=== PATIENT | female | born 1970 | race Caucasian/White ===

== ENCOUNTER 2022-12-03 09:26 | Outpatient (RCR) | payer BC, SELFPAY | END 2023-01-01 11:06 | disposition home or self-care (01) | LOC: PT 09:26 | PROVIDERS: PCP Internal Medicine; Visit Provider Anesthesiology Pain Medicine | DX: G57.82 Other specified mononeuropathies of left lower limb (principal) | CPT/HCPCS: 20561; 97110 ==

== ENCOUNTER 2023-04-14 07:35 | Outpatient (OUT) | payer BC, SELFPAY ==
--- NOTE | 2023-04-14 07:58 | P.CN_ITS ---
Consult Note: HPI Data of Consult Patient: known to practice within the last 3 years Requesting Physician: Nancy Miller NP Primary Care Provider: Ryan Jin DO Consult Narrative Reason for consult: f/u Narrative: Abad Thornton a pleasant 52 year old female presents for evaluation of chronic low back pain and sacroiliac joint pain. Patient today rating pain 2/10 in low back radiating down her right buttock and thigh. Intermittently has numbness/tingling to right foot. Patient recently completed PT with benefit, notices after completing PT her SIJ pain is greatly improved but she continues to have low back back and intermittent radiculopathy. Patient has been taking nabumetone 500mg QD and Tramadol 50mg QD PRN with benefit without side effects. Notices extreme drowsiness with 10mg PRN Baclofen. Patient would like to discuss additional options today. cc:: CC: Nancy Miller NP Review of Systems ROS Status of ROS 10 or more systems reviewed and unremarkable except as noted in history and below Musculoskeletal Reports: back pain Exam Constitutional Documenting provider has reviewed patient's vital signs: yes Common normals: no apparent distress, oriented x3, healthy appearing, alert and well nourished General appearance: cooperative HENMT Common normals: normocephalic, hearing grossly normal bilaterally and moist oral mucous membranes Head and scalp: normocephalic Eye Common normals: PERRL Pupil: PERRL Neck & C-Spine Common normals: full ROM General: normal visual inspection Chest Common normals: inspection of chest normal Respiratory Common normals: normal respiratory effort, no retractions and no use of accessory muscles Back & Pelvis Common normals: straight leg raise negative bilaterally Lumbar spine/lower back: pain with ROM and straight leg raise negative bilaterally Sacroiliac joints: SI joints normal Other: positive facet loading R>L tenderness over L3-4 L4-5 L5-S1 Extremity Common normals: normal to inspection and full ROM Neuro Common normals: oriented x3, CN's II-XII intact bilaterally, moves all extremities, no focal motor deficits, no sensory deficits noted, deep tendon reflexes 2+ bilaterally and gait normal Sensorium/orientation: alert Motor exam: strength 5/5 throughout and no movement abnormalities noted Psych Common normals: mental status grossly normal, thought process normal, cooperative, affect normal, speech normal and activity/motor behavior normal Speech: normal speech Thought process: normal thought process Results Additional Findings Additional findings: I have checked an OARRS report on this patient today and there are no aberrancies noted in the prescribing history.?? A drug screen was completed and reviewed within the last year, and if there has not been a drug screen completed we ordered one today to monitor higher risk, state monitored pain medication use. As part of providing excellent, safe, comprehensive care, the following was completed at our patient's visit: 1. A medication reconciliation and review to ensure accurate knowledge of cu rrent/active medications, including asking our patients to inform us about any [id number] medications or herbal remedies/nutritional supplements/alternative remedies. 2. A review to specifically ensure our patients have had annual screening for: elevated body mass index (BMI), tobacco use, screening for depression, and screening for unhealthy alcohol use. When screening is concerning, patients are provided with education and the specific recommendation to discuss the concerning health issue and treatment options with their primary care provider. TIFFANIE 22% with mild pain, extra pain with lifting heavy weights, pain prevents her from sitting more than 1 hour, pain with standing, because of pain she has less than 6 hours of sleep, travel causes additional pain Assessment and Plan Assessment and Plan (1) Bilateral sacroiliitis: Assessment and Plan: resolved since completion of PT (2) Lumbar spondylosis: Assessment and Plan: predominately axial low back pain worse on right side (3) Lumbar radiculopathy: Assessment and Plan: intermittent down right leg and foot (4) Muscle spasm: (5) Chronic prescription opiate use: Plan stop baclofen start tizanidine 4mg 1-2tabs PRN BID muscle spasms continue tramadol 50mg QD PRN, tolerating well without side effect, refilled today continue nabumetone 500mg QD Lumbosacral xray with flexion extension ordered, last imaging on lumbar spine 2018 continue HEP f/u 1 month to review imaging and discuss injection therapy if needed
== END 2023-04-14 07:36 | disposition home or self-care (01) ==
LOC: PM 07:41
PROVIDERS: PCP Internal Medicine; Visit Provider Nurse Practitioner
DX: M47.26 Other spondylosis with radiculopathy, lumbar region (principal); M62.838 Other muscle spasm; M46.1 Sacroiliitis, not elsewhere classified; Z79.899 Other long term (current) drug therapy
CPT/HCPCS: G0463

== ENCOUNTER 2023-04-25 21:24 | Emergency (ER) | payer BC, SELFPAY ==
[2023-04-25 21:30] VITALS: BP 172/67; PULSE 88; RESP 16; TEMP 36.6; O2SAT 100; BMI 30.2
--- NOTE | 2023-04-25 21:41 | XR_ITS ---
The [address] [address] Patient Name: CECILIO ANNA MRN: [id number] date: 1970 Sex: F Assigned Patient Location: ER Current Patient Location: ED.MAIN Accession/Order Number: [id number] Exam Date: 04/25/2023 21:50 Report Date: 04/25/2023 22:03 At the request of: PONCE CHAUDHRY Procedure: XR foot RT min 3V EXAM: XR foot RT min 3V HISTORY: Branch fell on patient's foot COMPARISON: None. TECHNIQUE: 3 views FINDINGS: Mild soft tissue edema of the dorsal aspect of the forefoot. No osseous lesion, fracture, dislocation or subluxation. Joint spaces are normal. No visualized effusion. XR/XR foot RT min 3V IMPRESSION: Soft tissue edema with no visualized acute osseous abnormality Electronically authenticated by: MARIBEL KAPADIA Date: 04/25/2023 22:03
--- NOTE | 2023-04-25 21:41 | ED.LOWEXI1 ---
HPI - Extremity Injury (Lower) General Chief Complaint: Extremity Injury, Lower Stated Complaint: Lower Extremity Injury Time Seen by Provider: 04/25/23 21:37 Source: patient Mode of arrival: Wheelchair History of Present Illness HPI Narrative: cutting wood today and a piece of the wood fell striking her right arredondo and foot. still has mild pain of the arredondo but the foot pain has increased. Related Data Home Medications Medication Instructions Recorded Confirmed coenzyme Q10 75 mg capsule (Ultra 200 mg PO DAILY 04/14/23 04/14/23 CoQ10) nabumetone 500 mg tablet 500 mg PO DAILY 04/14/23 04/14/23 tizanidine 4 mg capsule 4 mg PO BID PRN muscle spasticity 04/14/23 04/14/23 tramadol 50 mg tablet 50 mg PO DAILY PRN pain 04/14/23 04/14/23 Allergies Allergy/AdvReac Type Severity Reaction Status Date / Time venlafaxine [From Effexor] Allergy Severe COUGH Verified 04/14/23 08:26 ketoprofen Allergy Mild Rash Verified 04/14/23 08:26 lisinopril Allergy Unknown Verified 04/14/23 08:26 Review of Systems ROS Status of ROS 10 or more systems reviewed and unremarkable except as noted in history and below [facility] Social History Smoking status: Never smoker Exam Constitutional Vital Signs, click to edit/add: Last Vital Signs Temp 97.9 F 04/25/23 21:30 Pulse 88 04/25/23 21:30 Resp 16 04/25/23 21:30 BP 172/67 H 04/25/23 21:30 Pulse Ox 100 04/25/23 21:30 O2 Del Method Room Air 04/25/23 21:30 Common normals: no apparent distress, average body habitus, oriented x3, no limitations, healthy appearing, alert and well nourished [facility] Common normals: normocephalic and head/scalp atraumatic Respiratory Common normals: normal respiratory effort, no retractions and no use of accessory muscles GI Common normals: Normal to inspection, nondistended, normoactive bowel sounds present Extremity Other: mild ecchymosis contusion of the right arredondo. mild tenderness. ecchymosis and mild swelling dorsum right foot- Neuro Common normals: oriented x3, CN's II-XII intact bilaterally, moves all extremities, no focal motor deficits and no sensory deficits noted Psych Appearance: grossly normal Course Vital Signs Vital signs: Vital Signs Temperature 97.9 F 04/25/23 21:30 Pulse Rate 88 04/25/23 21:30 Respiratory Rate 16 04/25/23 21:30 Blood Pressure 172/67 H 04/25/23 21:30 Pulse Oximetry 100 04/25/23 21:30 Oxygen Delivery Method Room Air 04/25/23 21:30 Temperature 97.9 F 04/25/23 21:30 Pulse Rate 88 04/25/23 21:30 Respiratory Rate 16 04/25/23 21:30 Blood Pressure 172/67 H 04/25/23 21:30 Pulse Oximetry 100 04/25/23 21:30 Oxygen Delivery Method Room Air 04/25/23 21:30 MDM - Extremity Injury (Lower) MDM Narrative Medical decision making narrative: presents after piece of wood fell striking her right arredondo and foot. Arredondo pain remains mild but foot pain increased and she had difficulty bearing weight because of it. xray of the foot neg for fracture. Patient has crutches and iuprofen at home. Discharged home to follow up with her doctor Imaging Data Chest x-ray: Radiologist's impression: Patient Name: CECILIO ANNA MRN: [id number] date: 1970 Sex: F Assigned Patient Location: ER Current Patient Location: ED.MAIN Accession/Order Number: [id number] Exam Date: 04/25/2023 21:50 Report Date: 04/25/2023 22:03 At the request of: PONCE CHAUDHRY Procedure: XR foot RT min 3V EXAM: XR foot RT min 3V HISTORY: Branch fell on patient's foot COMPARISON: None. TECHNIQUE: 3 views FINDINGS: Mild soft tissue edema of the dorsal aspect of the forefoot. No osseous lesion, fracture, dislocation or subluxation. Joint spaces are normal. No visualized effusion. XR/XR foot RT min 3V IMPRESSION: Soft tissue edema with no visualized acute osseous abnormality Discharge Plan Discharge Chief Complaint: Extremity Injury, Lower Clinical Impression: Contusion of foot, right Patient Disposition: Home, Self-Care Prescriptions / Home Meds: No Action nabumetone 500 mg tablet 500 mg PO DAILY tramadol 50 mg tablet 50 mg PO DAILY PRN (Reason: pain) tizanidine 4 mg capsule 4 mg PO BID PRN (Reason: muscle spasticity) Rx Instructions: 1 to 2 tabs twice daily Ultra CoQ10 75 mg capsule 200 mg PO DAILY Instructions: Foot Contusion (ED) Stand Alone Forms: Portal Instructions Referrals: Ryan Jin DO [Primary Care Provider] - 1 week
--- NOTE | 2023-04-25 21:55 | PC.NURSE ---
no edema noted to right foot, some bruising present. ice pack applied in ED
== END 2023-04-25 22:38 | disposition home or self-care (01) ==
PROVIDERS: Emergency Provider Internal Medicine; PCP Internal Medicine
DX: S90.31XA Contusion of right foot, initial encounter (principal); W20.8XXA Other cause of strike by thrown, projected or falling object, initial encounter; Z79.899 Other long term (current) drug therapy
CPT/HCPCS: 73630; 99283

== ENCOUNTER 2023-05-11 08:00 | Outpatient (OUT) | payer BC, SELFPAY ==
--- NOTE | 2023-05-11 08:03 | XR_ITS ---
The [place] [id number] Patient Name: CECILIO ANNA MRN: [id number] date: 1970 Sex: F Assigned Patient Location: [facility] Current Patient Location: [facility] Accession/Order Number: [id number] Exam Date: 05/11/2023 08:10 Report Date: 05/11/2023 09:25 At the request of: JENNY BROWN Procedure: XR lumbar spine 6V w bending EXAMINATION: XR lumbar spine 6V w bending HISTORY: Lumbar Radiculopathy COMPARISON: No relevant comparison available. FINDINGS: BONES: Normal alignment with no acute fracture or spondylolisthesis. Mild degenerative spondylosis and facet osteoarthropathy DISC SPACES: Normal. No significant disc height narrowing, subluxation, or endplate abnormality. PARASPINOUS: Negative. No paraspinous abnormality is seen. OTHER: No transient spondylolisthesis with flexion or extension. Mild vascular calcifications XR/XR lumbar spine 6V w bending IMPRESSION: Mild degenerative changes with no dynamic instability Electronically authenticated by: MARIBEL DEJESUS Date: 05/11/2023 09:25
--- NOTE | 2023-05-13 07:53 | PM.CN ---
Consult Note: HPI Data of Consult Patient: known to practice within the last 3 years Requesting Physician: Nancy Miller NP Primary Care Provider: Ryan Jin DO Consult Narrative Reason for consult: f/u Narrative: Jeanne Thornton a pleasant 52 year old female presents for evaluation and management of chronic low back pain. Today rating pain cc:: CC: Nancy Miller NP Review of Systems ROS Status of ROS 10 or more systems reviewed and unremarkable except as noted in history and below Musculoskeletal Reports: back pain PFSH PFSH Social History Smoking status: Never smoker Meds Home Medications and Allergies Home Medications Medication Instructions Recorded Confirmed Type coenzyme Q10 75 mg capsule (Ultra 200 mg PO DAILY 04/14/23 04/14/23 History CoQ10) nabumetone 500 mg tablet 500 mg PO DAILY 04/14/23 04/14/23 History tizanidine 4 mg capsule 4 mg PO BID PRN muscle spasticity 04/14/23 04/14/23 History tramadol 50 mg tablet 50 mg PO DAILY PRN pain 04/14/23 04/14/23 History Allergies Allergy/AdvReac Type Severity Reaction Status Date / Time venlafaxine [From Effexor] Allergy Severe COUGH Verified 04/14/23 08:26 ketoprofen Allergy Mild Rash Verified 04/14/23 08:26 lisinopril Allergy Unknown Verified 04/14/23 08:26 Exam Constitutional Documenting provider has reviewed patient's vital signs: yes Common normals: no apparent distress, oriented x3, healthy appearing, alert and well nourished General appearance: cooperative HENMT Common normals: normocephalic, hearing grossly normal bilaterally and moist oral mucous membranes Head and scalp: normocephalic Eye Common normals: PERRL Pupil: PERRL Neck & C-Spine Common normals: full ROM General: normal visual inspection Chest Common normals: inspection of chest normal Respiratory Common normals: normal respiratory effort, no retractions and no use of accessory muscles Back & Pelvis Common normals: straight leg raise negative bilaterally Lumbar spine/lower back: pain with ROM and straight leg raise negative bilaterally Sacroiliac joints: SI joints normal Other: positive facet loading R>L tenderness over L3-4 L4-5 L5-S1 Extremity Common normals: normal to inspection and full ROM Neuro Common normals: oriented x3, CN's II-XII intact bilaterally, moves all extremities, no focal motor deficits, no sensory deficits noted and deep tendon reflexes 2+ bilaterally Sensorium/orientation: alert Motor exam: strength 5/5 throughout and no movement abnormalities noted Psych Common normals: mental status grossly normal, thought process normal, cooperative, affect normal, speech normal and activity/motor behavior normal Speech: normal speech Thought process: normal thought process Results Additional Findings Additional findings: I have checked an OARRS report on this patient today and there are no aberrancies noted in the prescribing history.?? A drug screen was completed and reviewed within the last year, and if there has not been a drug screen completed we ordered one today to monitor higher risk, state monitored pain medication use. As part of providing excellent, safe, comprehensive care, the following was completed at our patient's visit: 1. A medication reconciliation and review to ensure accurate knowledge of current/active medications, including asking our patients to inform us about any [id number] medications or herbal remedies/nutritional supplements/alternative remedies. 2. A review to specifically ensure our patients have had annual screening for: elevated body mass index (BMI), tobacco use, screening for depression, and screening for unhealthy alcohol use. When screening is concerning, patients are provided with education and the specific recommendation to discuss the concerning health issue and treatment options with their primary care provider. Assessment and Plan Assessment and Plan (1) Lumbar spondylosis: (2) Lumbar radiculopathy: (3) Muscle spasm: (4) Chronic prescription opiate use: (5) Bilateral sacroiliitis:
== END 2023-05-11 08:01 | disposition home or self-care (01) ==
LOC: RAD 08:00
PROVIDERS: PCP Internal Medicine; Visit Provider Nurse Practitioner
DX: M54.16 Radiculopathy, lumbar region (principal)
CPT/HCPCS: 72114

== ENCOUNTER 2023-05-13 07:45 | Outpatient (OUT) | payer BC, SELFPAY ==
--- NOTE | 2023-05-13 08:05 | PM.CN ---
Consult Note: HPI Data of Consult Requesting Physician: Nancy Miller NP Primary Care Provider: Ryan Jin DO Consult Narrative Reason for consult: f/u Narrative: Jeanne Thornton a pleasant 52 year old female presents for evaluation and management of chronic low back pain. Today rating pain 3/10 sharp nagging in low back, worse to the right of lumbar spine. Patient notices pain is increased with activity or after lying still too long. Doing well on current medication regimen without side effects. Would like to discuss repeating thermal RFA as previous ablations in lumbar spine have provided >50% pain relief and functional improvement greater than 6 months. cc:: CC: Nancy Miller NP Review of Systems ROS Status of ROS 10 or more systems reviewed and unremarkable except as noted in history and below Musculoskeletal Reports: back pain PFSH PFSH Social History Smoking status: Never smoker Meds Home Medications and Allergies Home Medications Medication Instructions Recorded Confirmed Type coenzyme Q10 75 mg capsule (Ultra 200 mg PO DAILY 04/14/23 04/14/23 History CoQ10) nabumetone 500 mg tablet 500 mg PO DAILY 04/14/23 04/14/23 History tizanidine 4 mg capsule 4 mg PO BID PRN muscle spasticity 04/14/23 04/14/23 History tramadol 50 mg tablet 50 mg PO DAILY PRN pain 04/14/23 04/14/23 History Allergies Allergy/AdvReac Type Severity Reaction Status Date / Time venlafaxine [From Effexor] Allergy Severe COUGH Verified 04/14/23 08:26 ketoprofen Allergy Mild Rash Verified 04/14/23 08:26 lisinopril Allergy Unknown Verified 04/14/23 08:26 Exam Constitutional Documenting provider has reviewed patient's vital signs: yes Common normals: no apparent distress, oriented x3, healthy appearing, alert and well nourished General appearance: cooperative HENMT Common normals: normocephalic, hearing grossly normal bilaterally and moist oral mucous membranes Head and scalp: normocephalic Eye Common normals: PERRL Pupil: PERRL Neck & C-Spine Common normals: full ROM General: normal visual inspection Chest Common normals: inspection of chest normal Respiratory Common normals: normal respiratory effort, no retractions and no use of accessory muscles Back & Pelvis Common normals: straight leg raise negative bilaterally Lumbar spine/lower back: pain with ROM and straight leg raise negative bilaterally Sacroiliac joints: SI joints normal Other: positive facet loading R>L tenderness over L3-4 L4-5 L5-S1 Extremity Common normals: normal to inspection and full ROM Neuro Common normals: oriented x3, CN's II-XII intact bilaterally, moves all extremities, no focal motor deficits, no sensory deficits noted, deep tendon reflexes 2+ bilaterally and gait normal Sensorium/orientation: alert Motor exam: strength 5/5 throughout and no movement abnormalities noted Psych Common normals: mental status grossly normal, thought process normal, cooperative, affect normal, speech normal and activity/motor behavior normal Speech: normal speech Thought process: normal thought process Assessment and Plan Assessment and Plan (1) Lumbar spondylosis: Assessment and Plan: patient has had greater than 50% pain relief and functional improvement for greater than 8 months, would like to repeat thermal RFA (2) Chronic prescription opiate use: Assessment and Plan: I have refilled the patient's opioid prescriptions at the above noted dose and schedule.? I feel these medications are improving the patient's quality of life and allow them to tolerate activities of daily living as well as participate in recreational activity.? The patient does not report intolerable side effects. The patient is NOT opioid naive and non-pharmacologic and non-opioid treatment has failed to significantly relieve the patient's pain and improve functionality. The patient has a diagnosis that is related to a somatic or visceral pain etiology. ? ?? I reviewed with the patient the potential risks and side effects with the use of? opioid medications including but not limited to respiratory depression,? sedation, and even . I verified the patient has access to naloxone should? these effects occur. I advised the patient to avoid the use of any other? sedation substances including alcohol, THC, and benzodiazepines while? taking opioid medications due to the risk of compounding side effects and? detrimental outcomes. I reviewed the [employer], pain treatment agreement, urine? drug screen, and opioid start talking forms. The patient was advised to let? their family know they had Naloxone in case they would need to administer? the medication.? ?? A drug screen was completed within the last year, and no aberrancies were noted regarding their use of controlled substances. The patient understands they are subject to the terms and conditions of the pain contract that they have signed. ? ?? I have checked an OARRS report on this patient today and there are no aberrancies noted in the prescribing history.? (3) Muscle spasm: (4) Bilateral sacroiliitis: Plan right then left thermal RFA under fluoroscopy at L4-5 L5-S1 update UDS today stop nabumatome start diclofenac 100mg BID PRN mild to moderate pain continue tramadol 50mg QD PRN moderate to severe pain f/u 1 month after RFAs
== END 2023-05-13 07:46 | disposition home or self-care (01) ==
LOC: PM 05-14 11:05
PROVIDERS: PCP Internal Medicine; Visit Provider Nurse Practitioner
DX: M47.816 Spondylosis without myelopathy or radiculopathy, lumbar region (principal); Z79.891 Long term (current) use of opiate analgesic
CPT/HCPCS: G0463

== ENCOUNTER 2023-06-07 08:00 | Day surgery (SDC) | payer BC, SELFPAY ==
[2023-06-07 08:34] VITALS: BP 137/82; PULSE 70; RESP 16; TEMP 36.5; O2SAT 99
[2023-06-07 09:32] VITALS: BP 145/65; PULSE 74; RESP 18; O2SAT 97
[2023-06-07] MEDS: BUPIVACAINE HCL 0.25% PF 25 MG/10 ML VIAL 4 ML INJ (09:42)
[2023-06-07] MEDS: TRIAMCINOLONE ACETONIDE 40 MG/ML VIAL 80 MG INJ (09:42)
[2023-06-07] MEDS: LIDOCAINE HCL 2% 400 MG/20 ML MDV 17 ML INJ (09:42)
[2023-06-07 09:43] VITALS: BP 132/75; PULSE 74; RESP 18; O2SAT 95
--- NOTE | 2023-06-07 09:46 | P.ON_ITS ---
Date of procedure: 06/07/23 Pre-op diagnosis: Lumbar spondylosis Procedure: Procedure: Bilateral L4-5, L5-S1 radiofrequency ablation Medications: Bupivacaine 0.25% 6cc, kenalog 80mg, lidocaine 2% 5cc The patient was seen and examined in the preoperative holding area.? The site was marked.? Written informed consent was obtained and placed on the chart.? The patient was brought to the medical procedure unit and placed in the prone position.? A timeout was completed verifying correct patient, procedure, positioning, and special requirements.? The skin overlying the target points, the designated medial branch, were prepped and draped in the usual sterile fashion.? The target point was achieved with a 20-gauge 15 cm with a 10 mm curved active tip radiofrequency cannula under direct fluoroscopic visualization.? The needle was inserted at level L4 on the right side. Needle tip position was confirmed with lateral fluoroscopic position.? Motor stimulation was carried out at 2 Hz up to 5 volts with the absence of extremity activity.? This was repeated at level L5, S1 on right side.?? Sensory stimulation was carried out.? Concordant pain was realized at the above- mentioned sites.? Then radiofrequency lesioning was carried out times 90 seconds at 80 degrees times 2 lesions at each level.? The radiofrequency probe was removed prior to cannula removal.? The above-mentioned injectate was placed in 1 mL increments.? The needle was removed. The same procedure, with the same steps, was then completed on the left side at the same levels. Insertion sites were covered.? The patient was taken to the postoperative recovery area and monitored for an appropriate length of time before being found suitable for discharge in the company of a responsible adult. Anesthesia: Local Surgeon: Lon Neumann Pathology: none sent Condition: stable Disposition: no change
== END 2023-06-07 09:51 | disposition home or self-care (01) ==
PROVIDERS: PCP Internal Medicine; Visit Provider Anesthesiology
DX: M47.816 Spondylosis without myelopathy or radiculopathy, lumbar region (principal)
CPT/HCPCS: 64635; 64636

== ENCOUNTER 2023-07-01 14:41 | Outpatient (OUT) | payer BC, SELFPAY ==
--- OUTSIDE RECORDS SUMMARY | 2023-07-01 15:01 | XMS_ITS | CCD ---
Author Name Unknown Address [address] [place] [address] Organization [facility] Care Team Providers Care Delivery And Mail Sorter Name Role Phone Dannie, Santana Unavailable PARISH GALDAMEZ Attending Unavailable Davin, Ryan Unavailable GALE CARUSO Consulting Unavailable SHADY, GALE Admitting Unavailable SHADY, GALE Attending Unavailable DAVIN, DR AMBROSE Primary Care Unavailable LAKSHMIPATHY ., ZACHERY Attending Gabrieal vailable LAKSHMIPATHY ., NARTALYA Admitting Gabriela vailable LAKSHMIPATHY ., ZACHERY Consulting Gabriela vailable DAVIN, DR AMBROSE Primary Care Unavailable DAVIN, DR AMBROSE Primary Care Unavailable CUMMINGS ., DR DYLAN Gandhi Consulting Unavailable CUMMINGS ., DR DYLAN Gandhi Attending Unavailable CUMMINGS ., DR DYLAN Gandhi Admitting Unavailable ENDYREYNOLD Consulting Unavailable DAVIN, DR AMBROSE Consulting Unavailable DAVIN, DR AMBROSE Primary Care Unavailable DAVIN, DR AMBROSE Admitting Unavailable DAVIN, DR AMBROSE Attending Unavailable DAVIN, DR AMBROSE Primary Care Unavailable DAVIN, DR AMBROSE Consulting Unavailable DAVIN, DR AMBROSE Admitting Unavailable BALL, DR AMBROSE Attending Unavailable ZIEBER, DR BYRON Austin Consulting Unavailable DAVIN, DR AMBROSE Primary Care Unavailable EMILIANO ., DR DYLAN Gandhi Attending Unavailable SALINAS .ROMMEL Consulting Unavailable EMILIANO ., DR DYLAN Gandhi Admitting Unavailable DAVIN, DR AMBROSE Primary Care Unavailable SALINAS .ROMMEL Consulting Unavailable CUMMINGS ., DR DYLAN Gandhi Attending Unavailable CUMMINGS ., DR DYLAN Gandhi Admitting Unavailable OLEXA, SANTANA Attending Unavailable OLEXA, SANTANA Admitting Unavailable OLEXA, SANTANA Consulting Unavailable DAVIN, DR AMBROSE Primary Care Unavailable CARRILLOMICHOACANO Kwan Consulting Unavailable EMILIANO ., DR DYLAN Gandhi Consulting Unavailable DAVIN, DR AMBROSE Primary Care Unavailable CUMMINGS ., DR DYLAN Gandhi Admitting Unavailable CUMMINGS ., DR DYLAN Gandhi Attending Unavailable CUMMINGS ., DR DYLAN Gandhi Consulting Unavailable CUMMINGS ., DR DYLAN Gandhi Attending Unavailable CUMMINGS ., DR DYLAN Gandhi Admitting Unavailable BALL, DR AMBROSE Primary Care Unavailable SHADY, GALE Consulting Unavailable SHADY, GALE Attending Unavailable SHADY, GALE Admitting Unavailable BALL, DR AMBROSE Primary Care Unavailable CUMMINGS ., DR DYLAN Gandhi Admitting Unavailable SALINAS ., ROMMEL Consulting Unavailable BALL, DR AMBROSE Primary Care Unavailable CUMMINGS ., DR DYLAN Gandhi Attending Unavailable SALINAS ., ROMMEL Consulting Unavailable BALL, DR AMBROSE Primary Care Unavailable CUMMINGS ., DR DYLAN Gandhi Attending Unavailable CUMMINGS ., DR DYLAN Gandhi Admitting Unavailable CUMMINGS ., DR DYALN Gandhi Admitting Unavailable SALINAS ., ROMMEL Consulting Unavailable CUMMINGS ., DR DYLAN Gandhi Attending Unavailable BALL, DR AMBROSE Primary Care Unavailable BALL, DR AMBROSE Primary Care Unavailable CUMMINGS ., DR DYLAN Gandhi Consulting Unavailable CUMMINGS ., DR DYLAN Gandhi Attending Unavailable CUMMINGS ., DR DYLAN Gandhi Admitting Unavailable MICHEAL, PATRICIO Consulting Unavailable BALL, DR AMBROSE Consulting Unavailable BALL, DR AMBROSE Primary Care Unavailable BALL, DR AMBROSE Admitting Unavailable BALL, DR AMBROSE Attending Unavailable WEST, DR MARIBEL Coffman Consulting Unavailable BALL, DR RYAN Messer Unavailable BALL, DR AMBROSE Primary Care Unavailable BALL, DR AMBROSE Admitting Unavailable BALL, DR AMBROSE Attending Unavailable ZIEBER, DR BYRON Austin Consulting Unavailable BALL, DR AMBROSE Primary Care Unavailable OLEXA, SANTANA Admitting Unavailable OLEXA, SANTANA Consulting Unavailable OLEXA, SANTANA Attending Unavailable CARRILLO, MICHOACANO Consulting Unavailable WEST, DR MARIBEL Coffman Consulting Unavailable OLEXA, SANTANA Admitting Unavailable OLEXA, SANTANA Attending Unavailable BALL, DR AMBROSE Primary Care Unavailable OLEXA, SANTANA Consulting Unavailable LAKSHMIPATHY ., NARENDTOM Admitting Gabriela vailable LAKSHMIPATHY ., ZACHERY Attending Gabriela vailable DAVIN, DR AMBROSE Primary Care Unavailable BALL, DR AMBROSE Primary Care Unavailable OLEXA, SANTANA Admitting Unavailable OLEXA, SANTANA Attending Unavailable HUGGINS, DR JOAN Black Consulting Unavailable HUGGINS, DR JOAN Black Attending Unavailable HUGGINS, DR JOAN Black Admitting Unavailable DAVIN, DR AMBROSE Primary Care Unavailable LAKSHMIPATHY ., NARENDTOM Admitting Gabriela vailable LAKSHMIPATHY ., ZACHERY Attending Gabriela vailable DAVIN, DR AMBROSE Primary Care Unavailable Davin, Ryan Primary Care Unavailable Santana Barr Jr Attending Unavailable Santana Barr Jr Admitting Unavailable Nel ROMERO, Lon Duque Attending Unavailable Allergies Allergy Classification Reported Allergen(s) Allergy Type Date of Onset Reaction(s) Facility (11 sources) Ketoprofen Drug Allergy rash [facility] [employer] Other (12 sources) Lisinopril; Translations: [LISINOPRIL] Drug Allergy cough [facility] Repository (11 sources) methylPREDNISolone Drug Allergy elevated BP [facility] [employer] Other (1 source) carvedilol; Translations: [CARVEDILOL] Drug Allergy [facility] Repository (1 source) Amino Acids Drug Allergy [facility] Repository (1 source) Ketoprofen Drug Allergy [address] [facility] Repository (1 source) venlafaxine Drug Allergy [facility] Repository (3 sources) venlafaxine Drug Allergy Unknown [facility] [employer] Other (2 sources) patient allergy list reviewed by nurse or physicia Propensity to adverse reactions 019 Comment:Done [employer] Other (2 sources) Allergies Reconciled Propensity to adverse reactions Unknown [employer] Other Medications Current Medications Medication Drug Class(es) Dates Sig (Normalized) Sig (Original) acetaminophen 325 mg / oxyCODONE hydrochloride 5 mg oral tablet (1 source) Opioid Agonist take 1 tablet by mouth every six hours Percocet 5-325 MG 1 tablet as needed Orally every 6 hrs from ER for wrist Active cyclobenzaprine (11 sources) Muscle Relaxant Flexeril Not-Gamal ing escitalopram 5 mg oral tablet (1 source) Serotonin Reuptake Inhibitor take 1 tablet by mouth once at bedtime Escitalopram Oxalate 5 MG 1 tablet Orally q HS for 30 days Active LORazepam 0.5 mg oral tablet (1 source) Benzodiazepine Start: 023 take 1 tablet by mouth every twenty-four hours LORazepam 0.5 MG 1 tablet at bedtime as needed Orally Once a day for 30 days Jun, Active 24 hr metoprolol succinate 25 mg extended release oral tablet (1 source) beta-Adrenergic Argenis Start: 023 take 1 tablet by mouth every twenty-four hours Metoprolol Succinate ER 25 MG 1 tablet Orally Once a day for 30 days Jun, Active nabumetone 500 mg oral tablet (11 sources) Nonsteroidal Anti-inflammatory Drug take 1 tablet by mouth every twelve hours phentermine hydrochloride 37.5 mg oral tablet (3 sources) Sympathomimetic Amine Anorectic Start: take 1 tablet by mouth once daily before breakfast Adipex-P 37.5 MG 1 tablet before breakfast Orally Once a day for 30 days Feb, Active Start: 01-07-2023 take 1 tablet by kelly th once daily before breakfast Adipex-P 37.5 MG 1 tablet before breakfast Orally Once a day for 30 days Jan, Active 24 hr phentermine 3.75 mg / topiramate 23 mg extended release oral capsule (4 sources) Sympathomimetic Amine Anorectic Start: 10-27-2022 take 1 capsule by mouth every twenty-four hours Qsymia 3.75-23 MG 1 capsule Orally Once a day for 28 days Oct, Active tiZANidine 4 mg oral tablet (6 sources) Central alpha-2 Adrenergic Agonist take 1 tablet by mouth every eight hours tiZANidine HCl 4 MG 1 tablet as needed Orally Three times a day Active traMADol hydrochloride 50 mg oral tablet (11 sources) Opioid Agonist take 1 tablet by mouth every twenty-four hours traMADol HCl 50 MG 1 tablet as needed Orally Once a day Active valACYclovir 1000 mg oral tablet (6 sources) Herpesvirus Nucleoside Analog DNA Polymerase Inhibitor, Herpes Simplex Virus Nucleoside Analog DNA Polymerase Inhibitor, Herpes Zoster Virus Nucleoside Analog DNA Polymerase Inhibitor take 1 tablet by mouth twice daily, then take 1 tablet by mouth once daily valACYclovir HCl 1 GM TAKE 1 TABLET BY MOUTH TWICE A DAY FOR 7 DAYS THEN 1 TABLET BY MOUTH DAILY for 90 Active take 1 tablet by kelly th every twenty-four hours Valtrex 1 GM 1 tablet Orally Once a day Active Problems Active Problems Problem Classification Problem Date Documented Date Episodic/Chronic Anxiety disorders (9 sources) Generalized anxiety disorder; Translations: [Generalized anxiety disorder] Chronic Cardiac dysrhythmias (1 source) Palpitations Episodic Diabetes mellitus without complication (9 sources) Impaired fasting glycemia; Translations: [Impaired fasting glucose] Episodic Essential hypertension (7 sources) Essential hypertension; Translations: [Essential (primary) hypertension] Chronic Inflammatory diseases of female pelvic organs (6 sources) Acute vaginitis; Translations: [Acute vaginitis] Onset: 05-13-2022 Episodic Menopausal disorders (2 sources) Menopause present; Translations: [Menopausal and female climacteric states] Onset: 03-27-2014 Chronic Miscellaneous mental health disorders (4 sources) Mental disorder; Translations: [Mental disorder, not otherwise specified] Chronic Nausea and vomiting (1 source) Nausea with vomiting, unspecified; Translations: [Nausea with vomiting, unspecified] Onset: 02-05-2023 Episodic Nonmalignant breast conditions (2 sources) Inflammatory disorder of breast; Translations: [Mastitis without abscess] Episodic Other acquired deformities (6 sources) Joint contracture of the ankle and/or foot; Translations: [Contracture, right ankle] Chronic Other circulatory disease (1 source) Elevated blood-pressure reading, without diagnosis of hypertension Episodic Other congenital anomalies (2 sources) Congenital spondylolysis of lumbosacral region; Translations: [Congenital spondylolysis, lumbosacral region] Onset: 06-08-2017 Chronic Other connective tissue disease (8 sources) Tibialis tendinitis; Translations: [Posterior tibial tendinitis, right leg] Episodic Other female genital disorders (2 sources) Disorder of female genital system; Translations: [Personal history of other diseases of the female genital tract] Episodic Other injuries and conditions due to external causes (1 source) Unspecified injury of muscle, fascia and tendon of the posterior muscle group at thigh level, left thigh, subsequent encounter Episodic Other nervous system disorders (4 sources) Other specified mononeuropathies of left lower limb; Translations: [OTH SPEC MONONEUROPATH LT LOW LIMB] Onset: 10-27-2022 Chronic Other nervous system disorders (4 sources) Other specified mononeuropathies; Translations: [OTHER SPECIFIED MONONEUROPATHIES] Onset: 10-13-2022 Chronic Other nervous system disorders (1 source) Other chronic pain; Translations: [OTHER CHRONIC PAIN] Onset: 10-21-2022 Chronic Other nervous system disorders (2 sources) History of infectious disease of central nervous system; Translations: [Personal history of infections of the central nervous system] Episodic Other non-traumatic joint disorders (9 sources) Arthralgia of the pelvic region and thigh; Translations: [Pain in left hip] Onset: 06-08-2017 Episodic Other non-traumatic joint disorders (6 sources) Instability of joint of right foot; Translations: [Other instability, right foot] Episodic Other non-traumatic joint disorders (5 sources) Pain in left hip; Translations: [PAIN IN LEFT HIP] Onset: 03-05-2022 Episodic Other nutritional; endocrine; and metabolic disorders (9 sources) Body mass index 30+ - obesity; Translations: [Obesity, unspecified] Chronic Other nutritional; endocrine; and metabolic disorders (1 source) Obesity, unspecified Chronic Other nutritional; endocrine; and metabolic disorders (4 sources) Obesity caused by energy imbalance; Translations: [Other obesity due to excess calories] Chronic Other nutritional; endocrine; and metabolic disorders (3 sources) Other obesity due to excess calories Chronic Other nutritional; endocrine; and metabolic disorders (1 source) Body mass index (BMI) 31.0-31.9, adult Chronic Other nutritional; endocrine; and metabolic disorders (4 sources) Obese class I; Translations: [Body mass index 34.0-34.9, adult] Onset: 06-08-2017 Chronic Other nutritional; endocrine; and metabolic disorders (2 sources) Obesity; Translations: [Obesity, unspecified] Chronic Other skin disorders (2 sources) H/O: skin disorder; Translations: [Personal history of diseases of the skin and subcutaneous tissue] Episodic Pathological fracture (9 sources) Pathological fracture; Translations: [Personal history of (healed) osteoporosis fracture] Onset: 11-27-2021 Episodic Residual codes; unclassified (6 sources) Family history of dementia; Translations: [Family history of other mental and behavioral disorders] Episodic Residual codes; unclassified (7 sources) Asymptomatic menopausal state; Translations: [Menopause] Onset: 11-27-2021 Episodic Residual codes; unclassified (2 sources) Postmenopausal state; Translations: [Asymptomatic menopausal state] Episodic Residual codes; unclassified (2 sources) Family history of mental disorder; Translations: [Family history of other mental and behavioral disorders] Episodic Skin and subcutaneous tissue infections (10 sources) Carbuncle, unspecified; Translations: [Carbuncle] Resolved: 11-19-2021 Episodic Spondylosis; intervertebral disc disorders; other back problems (20 sources) Lumbar spondylosis; Translations: [Spondylosis without myelopathy or radiculopathy, lumbar region] Onset: 11-06-2021 Chronic Unclassified (1 source) LOW BACK PAIN, UNSPECIFIED; Translations: [LOW BACK PAIN, UNSPECIFIED] Onset: 06-11-2022 Unclassified (4 sources) CONTACT W/AND (SUSP) EXPOS COVID-19; Translations: [CONTACT W/AND (SUSP) EXPOS COVID-19] Onset: 04-22-2022 Unclassified (2 sources) Other specified cough; Translations: [Other specified cough] Onset: 01-09-2016 Viral infection (8 sources) Herpes simplex type 2 infection; Translations: [Herpesviral infection, unspecified] Episodic Past or Other Problems Problem Classification Problem Date Documented Date Episodic/Chronic Acute bronchitis (2 sources) Acute bronchitis; Translations: [Acute bronchitis, unspecified] Onset: 10-24-2015 Episodic Allergic reactions (4 sources) Allergic contact dermatitis due to plants, except food; Translations: [Allergic contact dermatitis due to plants, except food] Onset: 02-11-2015 Episodic Conditions associated with dizziness or vertigo (4 sources) Dizziness and giddiness; Translations: [Dizziness and giddiness] Onset: 06-08-2017 Episodic E Codes: Adverse effects of medical drugs (2 sources) Adverse effect of glucocorticoids and synthetic analogues, initial encounter; Translations: [Adverse effect of glucocorticoids and synthetic analogues, initial encounter] Onset: 10-21-2018 Episodic Fracture of upper limb (19 sources) Other fractures of lower end of right radius, initial encounter for closed fracture; Translations: [Other fractures of lower end of right radius, subsequent encounter for closed fracture with routine healing] Onset: 10-12-2021 Resolved: 11-25-2021 Episodic Influenza (2 sources) Upper respiratory tract infection due to Influenza; Translations: [Influenza due to unidentified influenza virus with other respiratory manifestations] Onset: 10-24-2015 Episodic Lymphadenitis (2 sources) Lymphadenopathy; Translations: [Enlargement of lymph nodes] Onset: 06-08-2017 Episodic Malaise and fatigue (2 sources) Malaise and fatigue; Translations: [Other malaise and fatigue] Onset: 10-21-2017 Episodic Neoplasms of unspecified nature or uncertain behavior (2 sources) Neoplastic disease of uncertain behavior; Translations: [Neoplasm of uncertain behavior of other specified sites] Onset: 06-08-2017 Episodic Other bone disease and musculoskeletal deformities (1 source) Other specified disorders of bone density and structure, unspecified site; Translations: [OTH D/O BONE DEN STRUCT UNS SITE] Onset: 11-27-2021 Episodic Other circulatory disease (2 sources) Elevated blood-pressure reading without diagnosis of hypertension; Translations: [Elevated blood-pressure reading, without diagnosis of hypertension] Onset: 10-21-2018 Episodic Other connective tissue disease (2 sources) Pain in left foot; Translations: [Pain in left foot] Resolved: 11-19-2021 Episodic Other connective tissue disease (2 sources) Spasm; Translations: [Spasm of muscle] Onset: 10-29-2014 Episodic Other screening for suspected conditions (not mental disorders or infectious disease) (4 sources) Encounter for screening mammogram for malignant neoplasm of breast; Translations: [ENC SCR MAMMO MALIG NEOPLASM BREAST] Onset: 06-30-2022 Episodic Other upper respiratory infections (2 sources) Chronic sinusitis; Translations: [Chronic sinusitis, unspecified] Resolved: 11-19-2021 Chronic Residual codes; unclassified (1 source) Family history of malignant neoplasm of breast; Translations: [FAMILY HX MALIG NEOPLASM OF BREAST] Onset: 07-03-2022 Episodic Residual codes; unclassified (1 source) Family history of malignant neoplasm of trachea, bronchus and lung; Translations: [FAM HX MALIG NEOPLSM TRACH BRON LNG] Onset: 07-03-2022 Episodic Residual codes; unclassified (2 sources) Flushing; Translations: [Flushing] Onset: 10-21-2017 Episodic Spondylosis; intervertebral disc disorders; other back problems (5 sources) Intervertebral disc disorders with radiculopathy, lumbar region; Translations: [Backache] Onset: 10-29-2014 Resolved: 11-19-2021 Episodic Sprains and strains (7 sources) Strain of other specified muscles, fascia and tendons at thigh level, left thigh, initial encounter; Translations: [Sprain of knee and leg] Onset: 03-17-2016 Resolved: 11-19-2021 Episodic Unclassified (1 source) CONTACT W/AND (SUSP) EXPOS COVID-19; Translations: [CONTACT W/AND (SUSP) EXPOS COVID-19] Onset: 05-24-2022 Viral infection (9 sources) Disease caused by 2019-nCoV; Translations: [COVID-19] Onset: 05-22-2022 Results Test Name Value Interpretation Reference Range Facility Complete Blood Count Auto Di ffon 02-05-2023 Basophils (Bld) [#/Vol] 0.0 10*3/uL Normal 0.0-0.2 [facility] Comment on above: Result Comment: PERF ORMED BY: [place] [address] PATHOLOGIST TELEGRAPH OFFICE TELEPHONE CLERK ADRIENNE CONTEH M.D. Performed By: #### C BC, CMP #### [address] Basophils/100 WBC (Bld) 0.3 % Normal . [facility] Comment on above: Performed By: #### C BC, CMP #### [address] Eosinophils (Bld) [#/Vol] 0.0 10*3/uL Normal 0.0-0.45 [facility] Comment on above: Performed By: #### C BC, CMP #### [address] Eosinophils/100 WBC (Bld) 0.1 % Normal . [facility] Comment on above: Performed By: #### C BC, CMP #### [address] Erythrocyte distribution width (RBC) [Ratio] 12.6 % Normal 11.9-15.3 [facility] Comment on above: Performed By: #### C BC, CMP #### [address] Hematocrit (Bld) [Volume fraction] 38.0 % Normal 34.0-46.4 [facility] Comment on above: Performed By: #### C BC, CMP #### [address] Hemoglobin (Bld) [Mass/Vol] 12.9 g/dL Normal 11.8-15.4 [facility] Comment on above: Performed By: #### C BC, CMP #### [place] [address] [place] Lymphocytes (Bld) [#/Vol] 1.5 10*3/uL Normal 1.00-4.8 [facility] Comment on above: Performed By: #### C BC, CMP #### [address] Lymphocytes/100 WBC (Bld) 13.9 % Normal . [facility] Comment on above: Performed By: #### C BC, CMP #### [address] MCH (RBC) [Entitic mass] 30.7 pg Normal 24.7-34.3 [facility] Comment on above: Performed By: #### C RICHARD, CMP #### [address] MCV (RBC) [Entitic vol] 90.1 fL Normal 80-100 [facility] Comment on above: Performed By: #### C RICHARD, CMP #### [address] Mean Corpuscular HGB Conc 34.1 g/dL Normal 32.0-35.0 [facility] Comment on above: Performed By: #### C RICHARD, CMP #### [address] Monocytes (Bld) [#/Vol] 0.3 10*3/uL Normal 0.0-0.8 [facility] Comment on above: Performed By: #### C BC, CMP #### [address] Monocytes/100 WBC (Bld) 14.63 % Normal 0.00-20.00 [facility] Comment on above: Performed By: #### C BC, CMP #### [address] Monocytes/100 WBC (Bld) 2.8 % Normal . [facility] Comment on above: Performed By: #### C BC, CMP #### [address] Neutrophils (Bld) [#/Vol] 9.0 10*3/uL High 1.8-7.7 [facility] Comment on above: Performed By: #### C BC, CMP #### [address] Neutrophils/100 WBC (Bld) 82.9 % Normal . [facility] Comment on above: Performed By: #### C BC, CMP #### [facility] [address] NRBC% 0.1 /100{WBC} Normal 0-0.5 [facility] Comment on above: Performed By: #### C BC, CMP #### [facility] [address] Platelet mean volume (Bld) [Entitic vol] 8.1 fL Normal 6.3-10.7 [facility] Comment on above: Performed By: #### C BC, CMP #### [address] Platelets (Bld) [#/Vol] 197 10*3/uL Normal 150-450 [facility] Comment on above: Performed By: #### C BC, CMP #### [address] RBC (Bld) [#/Vol] 4.22 10*6/uL Normal 3.60-5.00 [facility] Comment on above: Performed By: #### C BC, CMP #### [address] WBC (Bld) [#/Vol] 10.9 10*3/uL Normal 3.8-11.6 [facility] Comment on above: Performed By: #### C BC, CMP #### [address] Comprehensive Metabolic Pane mayito 02-05-2023 Albumin [Mass/Vol] 4.6 g/dL Normal 3.5-5.7 [facility] Comment on above: Performed By: #### C BC, CMP #### [address] [place] [address] [place] Albumin/Globulin [Mass ratio] 1.4 {ratio} Normal [facility] Comment on above: Performed By: #### C BC, CMP #### [address] ALP [Catalytic activity/Vol] 40 U/L Normal 34-104 [facility] Comment on above: Performed By: #### C BC, CMP #### [address] ALT [Catalytic activity/Vol] 12 U/L Normal 7-52 [facility] Comment on above: Performed By: #### C BC, CMP #### [address] Anion gap [Moles/Vol] 14.1 mmol/L Normal 6.0-15.0 [facility] Comment on above: Performed By: #### C BC, CMP #### [address] AST [Catalytic activity/Vol] 14 U/L Normal 13-39 [facility] Comment on above: Performed By: #### C BC, CMP #### [address] Bilirubin [Mass/Vol] 0.3 mg/dL Normal 0.3-1.0 [facility] Comment on above: Performed By: #### C BC, CMP #### [address] Calcium [Mass/Vol] 8.9 mg/dL Normal 8.6-10.3 [facility] Comment on above: Performed By: #### C BC, CMP #### [place] [address] [place] Chloride [Moles/Vol] 105 mmol/L Normal 98-107 [facility] Comment on above: Performed By: #### C BC, CMP #### [address] CO2 [Moles/Vol] 23.7 mmol/L Normal 21.0-31.0 [facility] Comment on above: Performed By: #### C BC, CMP #### [facility] [address] Creatinine [Mass/Vol] 0.78 mg/dL Normal 0.60-1.20 [facility] Comment on above: Performed By: #### C BC, CMP #### [facility] [address] [place] [address] [place] Creatinine Clr Calc Pharmacy 79.00 Normal [facility] Comment on above: Result Comment: PERF ORMED BY: [facility] [address] [place] [address] PATHOLOGIST TELEGRAPH OFFICE TELEPHONE CLERK ADRIENNE CONTEH M.D. Performed By: #### C BC, CMP #### [address] GFR/1.73 sq M.predicted MDRD (S/P/Bld) [Vol rate/Area] mL/min/{1.73_m2} Normal [facility] Comment on above: Performed By: #### C BC, CMP #### [facility] [address] [address] Globulin (S) [Mass/Vol] 3.2 g/dL Normal [facility] Comment on above: Performed By: #### C BC, CMP #### [address] Glucose [Mass/Vol] 121 mg/dL High 70-100 [facility] Comment on above: Result Comment: [place] Glucose Reference Range is dependent on time and content of last meal. Glucose of more than 200 mg/dL in a nonstressed, ambulatory subject supports the diagnosis of Diabetes Mellitus. ADA recommended reference range Performed By: #### C BC, CMP #### [facility] [address] Potassium [Moles/Vol] 3.8 mmol/L Normal 3.5-5.1 [facility] Comment on above: Performed By: #### C BC, CMP #### [facility] [address] Protein [Mass/Vol] 7.8 g/dL Normal 6.4-8.9 [facility] Comment on above: Performed By: #### C BC, CMP #### [address] Sodium [Moles/Vol] 139 mmol/L Normal 136-145 [facility] Comment on above: Performed By: #### C BC, CMP #### [address] Urea nitrogen [Mass/Vol] 14 mg/dL Normal 7-25 [facility] Comment on above: Performed By: #### C BC, CMP #### [place] [address] [place] Dipstick and Microscopicon 0 02-05-2023 Appearance (U) Clear Normal Clear [facility] Comment on above: Order Comment: Name Collection Type:: Clean-Voided Midstream Performed By: #### A DDONUAPLUS #### [place] [address] [place] Bacteria,Urine None Seen Normal None Seen [facility] Comment on above: Order Comment: Name Collection Type:: Clean-Voided Midstream Performed By: #### A DDONUAPLUS #### [place] [address] [place] Bilirubin,Urine Negative Normal Negative [facility] Comment on above: Order Comment: Name Collection Type:: Clean-Voided Midstream Performed By: #### A DDONUAPLUS #### [place] [address] [place] Color (U) Yellow Normal Yellow [facility] Comment on above: Order Comment: Name Collection Type:: Clean-Voided Midstream Performed By: #### A DDONUAPLUS #### [place] [address] [place] Glucose Ql (U) Normal Normal Normal [facility] Comment on above: Order Comment: Name Collection Type:: Clean-Voided Midstream Performed By: #### A DDONUAPLUS #### [place] [address] [place] Hyaline Casts,Urine 0-8 Normal 0-8 [facility] Comment on above: Order Comment: Name Collection Type:: Clean-Voided Midstream Result Comment: PERF ORMED BY: [place] [address] PATHOLOGIST TELEGRAPH OFFICE TELEPHONE CLERK ADRIENNE CONTEH M.D. Performed By: #### A DDONUAPLUS #### [facility] [address] [place] [address] [place] Ketones Ql (U) Trace High Negative [facility] Comment on above: Order Comment: Name Collection Type:: Clean-Voided Midstream Performed By: #### A DDONUAPLUS #### [address] Leukocyte esterase Test strip Ql (U) Negative Normal Negative [facility] Comment on above: Order Comment: Name Collection Type:: Clean-Voided Midstream Performed By: #### A DDONUAPLUS #### [place] [address] [place] Nitrite,Urine Negative Normal Negative [facility] Comment on above: Order Comment: Name Collection Type:: Clean-Voided Midstream Performed By: #### A DDONUAPLUS #### [place] [address] [place] Occult Blood,Urine Negative Normal Negative [facility] Comment on above: Order Comment: Name Collection Type:: Clean-Voided Midstream Result Comment: PERF ORMED BY: [place] [address] PATHOLOGIST TELEGRAPH OFFICE TELEPHONE CLERK ADRIENNE CONTEH M.D. Performed By: #### A DDONUAPLUS #### [facility] [address] [place] [address] [place] pH (U) 5.5 [pH] Normal 5.0-9.0 [facility] Comment on above: Order Comment: Name Collection Type:: Clean-Voided Midstream Performed By: #### A DDONUAPLUS #### [place] [address] [place] Protein,Urine Trace High Negative [facility] Comment on above: Order Comment: Name Collection Type:: Clean-Voided Midstream Performed By: #### A DDONUAPLUS #### [address] RBC,Urine 1-2 Normal 0-4 [facility] Comment on above: Order Comment: Name Collection Type:: Clean-Voided Midstream Performed By: #### A DDONUAPLUS #### [address] Specificy [place],Urine 1.026 Normal 1.001-1.030 [facility] Comment on above: Order Comment: Name Collection Type:: Clean-Voided Midstream Performed By: #### A DDONUAPLUS #### [address] Squamous Epithelial Cell,Urine 3-4 High 0-2 [facility] Comment on above: Order Comment: Name Collection Type:: Clean-Voided Midstream Performed By: #### A DDONUAPLUS #### [address] Urobilinogen,Urine Normal Normal Normal [facility] Comment on above: Order Comment: Name Collection Type:: Clean-Voided Midstream Performed By: #### A DDONUAPLUS #### [place] [address] [place] WBC,Urine 3-4 Normal 0-4 [facility] Comment on above: Order Comment: Name Collection Type:: Clean-Voided Midstream Performed By: #### A DDONUAPLUS #### [address] CBC AUTO DIFFon 10-23-2022 BASO # 0.1 103/ul Normal 0.0-0.1 [facility] Comment on above: Performed By: #### C VDAGA #### [facility] [address] [address] [address] Karlo Beltre Basophils/100 WBC (Bld) 0.9 % Normal 0.2-2.0 [facility] Comment on above: Performed By: #### C VDAGA #### [facility] [address] [place] [address] Dr. Karlo Beltre EO # 0.1 103/ul Normal 0.0-0.[address] [facility] Comment on above: Performed By: #### C VDAGA #### [facility] [address] [place] [address] Dr. Karlo Beltre Eosinophils/100 WBC (Bld) 2.1 % Normal 0.9-7.[address] [facility] Comment on above: Performed By: #### C VDAGA #### [facility] [address] [place] [address] Dr. Karlo Beltre Erythrocyte distribution width (RBC) [Ratio] 12.3 % Normal 11.0-15.0 [facility] Comment on above: Performed By: #### C VDAGA #### [facility] [address] [place] [address] Dr. Karlo Beltre Hematocrit (Bld) [Volume fraction] 38.3 % Normal 36.0-48.0 [facility] Comment on above: Performed By: #### C VDAGA #### [facility] [address] [place] [address] Dr. Karlo Beltre Hemoglobin (Bld) [Mass/Vol] 12.9 g/dL Normal 12.0-16.0 [facility] Comment on above: Performed By: #### C VDAGA #### [facility] [address] [place] [address] Dr. Karlo Beltre IG # 0.01 10e3/ul Normal 0.00-0.[address] [facility] Comment on above: Performed By: #### C VDAGA #### [facility] [address] [place] [address] Dr. Karlo Beltre IG % 0.2 % Normal 0.0-0.[address] [facility] Comment on above: Performed By: #### C VDAGA #### [facility] [address] [place] [address] Dr. Karlo Beltre LYMPH # 2.5 103/ul Normal 1.2-3.[address] [facility] Comment on above: Performed By: #### C VDAGA #### [facility] [address] [address] [address] Karlo Beltre Lymphocytes/100 WBC (Bld) 43.8 % Normal 20.5-60.0 [facility] Comment on above: Performed By: #### C VDAGA #### [facility] [address] [place] [address] Dr. Karlo Beltre MANUAL DIFF REQ NO Normal [facility] Comment on above: Performed By: #### C VDAGA #### [facility] [address] [place] [address] Dr. Karlo Beltre MCH (RBC) [Entitic mass] 30.4 pg Normal 26.7-34.[address] [facility] Comment on above: Performed By: #### C VDAGA #### [facility] [address] [place] [address] Dr. Karlo Beltre MCHC (RBC) [Mass/Vol] 33.7 g/dL Normal 29.9-35.[address] [facility] Comment on above: Performed By: #### C VDAGA #### [facility] [address] [place] [address] Dr. Karlo Beltre MCV (RBC) [Entitic vol] 90.1 fL Normal 81.0-99.0 [facility] Comment on above: Performed By: #### C VDAGA #### [facility] [address] [place] [address] Dr. Karlo Beltre MONO # 0.4 103/ul Normal 0.3-0.[address] [facility] Comment on above: Performed By: #### C VDAGA #### [facility] [address] [place] [address] Dr. Karlo Beltre Monocytes/100 WBC (Bld) 6.7 % Normal 1.7-12.[address] [facility] Comment on above: Performed By: #### C VDAGA #### [facility] [address] [place] [address] Dr. Karlo Beltre NEUT # 2.6 103/ul Normal 1.4-6.[address] [facility] Comment on above: Performed By: #### C VDAGA #### [facility] [address] [address] [address] Karlo Beltre Neutrophils/100 WBC (Bld) 46.3 % Normal 43.0-75.0 [facility] Comment on above: Performed By: #### C VDAGA #### [facility] [address] [address] [address] Karlo Beltre Platelet mean volume (Bld) [Entitic vol] 9.6 fL Normal 9.5-13.5 [facility] Comment on above: Performed By: #### C VDAGA #### [facility] [address] [address] [address] Karlo Beltre PLT 190 103/ul Normal 150-450 [facility] Comment on above: Performed By: #### C VDAGA #### [facility] [address] [place] [address] Dr. Karlo Beltre RBC 4.25 106/ul Normal 4.20-5.40 [facility] Comment on above: Performed By: #### C VDAGA #### [facility] [address] [place] [address] Dr. Karlo Beltre WBC 5.7 103/ul Normal 4.0-11.0 [facility] Comment on above: Performed By: #### C VDAGA #### [facility] [address] [place] [address] Dr. Karlo Beltre GLYCOHEMOGLOBIN A1Con 2022 ADA RECOMMENDATION SEE BELOW Normal [facility] Comment on above: Result Comment: ADA RECOMMENDED LIMIT 4.0 - 6.0 ADA THERAPEUTIC TARGET < 7.0 ACTION SUGGESTED > 7.0 Performed By: #### A 1C #### [facility] [address] [place] [address] Dr. Karlo Beltre Glucose [Mass/Vol] 114 mg/dL Normal [facility] Comment on above: Performed By: #### A 1C #### [facility] [address] [place] [address] Dr. Karlo Beltre HbA1c (Bld) [Mass fraction] 5.6 % Normal 4.5-6.2 [facility] Comment on above: Performed By: #### A 1C #### [facility] [address] [address] [address] Karlo Beltre LIPID PROFILEon 10-23-2022 CHOL-HDL RATIO NORM SEE BELOW Normal [facility] Comment on above: Result Comment: 3.3 - 4.4 LOW RISK 4.4 - 7.1 AVERAGE RISK 7.1 - 11.0 MODERATE RISK >11.0 HIGH RISK Performed By: #### L IPID, TSH, CMP #### [facility] [address] [address] [address] Karlo Beltre Cholesterol [Mass/Vol] 249 mg/dL Critically high <=200 [facility] Comment on above: Performed By: #### L IPID, TSH, CMP #### [facility] [address] [address] [address] Karlo Beltre Cholesterol in HDL [Mass/Vol] 82 mg/dL Critically high 40-60 [facility] Comment on above: Performed By: #### L IPID, TSH, CMP #### [facility] [address] [address] [address] Karlo Beltre Cholesterol in LDL [Mass/Vol] 152.2 mg/dL Normal [facility] Comment on above: Performed By: #### L IPID, TSH, CMP #### [facility] [address] [address] [address] Karlo Beltre Cholesterol.total/Ch olesterol in HDL [Mass ratio] 3.0 {ratio} Normal [facility] Comment on above: Performed By: #### L IPID, TSH, CMP #### [facility] [address] [address] [address] Karlo Beltre HDL NORMAL > or = 60 mg/dl - LOW CARDIOVASCULAR RISK <40 mg/dl - HIGH CARDIOVASCULAR RISK Normal [facility] Comment on above: Performed By: #### L IPID, TSH, CMP #### [facility] [address] [address] [address] Karlo Beltre LDL CALC NORMAL SEE BELOW Normal [facility] Comment on above: Result Comment: <100 mg/dl OPTIMAL 100 - 129 mg/dl NEAR OR ABOVE OPTIMAL 130 - 159 mg/dl BORDERLINE HIGH 160 - 189 mg/dl HIGH >190 mg/dl VERY HIGH Performed By: #### L IPID, TSH, CMP #### [facility] [address] [place] [address] Dr. Karlo Beltre Triglyceride [Mass/Vol] 74 mg/dL Normal <=150 [facility] Comment on above: Performed By: #### L IPID, TSH, CMP #### [facility] [address] [address] [address] Karlo Beltre VLDL CALC 14.8 mg/dL Normal [facility] Comment on above: Performed By: #### L IPID, TSH, CMP #### [facility] [address] [place] [address] Dr. Karlo Beltre PROF 14(COMP METB)on 023 Albumin [Mass/Vol] 3.9 g/dL Normal 3.4-5.0 [facility] Comment on above: Performed By: #### L IPID, TSH, CMP #### [facility] [address] [place] [address] Dr. Karlo Beltre Albumin/Globulin [Mass ratio] 1.1 {ratio} Normal [facility] Comment on above: Performed By: #### L IPID, TSH, CMP #### [facility] [address] [place] [address] Dr. Karlo Beltre ALP [Catalytic activity/Vol] 49 U/L Normal 46-[address] [facility] Comment on above: Performed By: #### L IPID, TSH, CMP #### [facility] [address] [place] [address] Dr. Karlo Beltre ALT [Catalytic activity/Vol] 23 U/L Normal 14-59 [facility] Comment on above: Performed By: #### L IPID, TSH, CMP #### [facility] [address] [place] [address] Dr. Karlo Beltre Anion gap [Moles/Vol] 13.5 mmol/L Normal [facility] Comment on above: Performed By: #### L IPID, TSH, CMP #### [facility] [address] [place] [address] Dr. Karlo Beltre AST [Catalytic activity/Vol] 15 U/L Normal 15-37 [facility] Comment on above: Performed By: #### L IPID, TSH, CMP #### [facility] [address] [place] [address] Dr. Karlo Beltre Bilirubin [Mass/Vol] 0.4 mg/dL Normal 0.2-1.0 [facility] Comment on above: Performed By: #### L IPID, TSH, CMP #### [facility] [address] [place] [address] Dr. Karlo Beltre Calcium [Mass/Vol] 9.2 mg/dL Normal 8.5-10.1 [facility] Comment on above: Performed By: #### L IPID, TSH, CMP #### [facility] [address] [place] [address] Dr. Karlo Betlre Chloride [Moles/Vol] 107 mmol/L Normal 98-107 [facility] Comment on above: Performed By: #### L IPID, TSH, CMP #### [facility] [address] [place] [address] Dr. Karlo Beltre CO2 [Moles/Vol] 26.6 mmol/L Normal 21.0-32.0 [facility] Comment on above: Performed By: #### L IPID, TSH, CMP #### [facility] [address] [place] [address] Dr. Karlo Beltre Creatinine [Mass/Vol] 0.82 mg/dL Normal 0.55-1.02 [facility] Comment on above: Performed By: #### L IPID, TSH, CMP #### [facility] [address] [place] [address] Dr. Karlo Beltre EGFR-AF [place]ER >60 Normal >=60 [facility] Comment on above: Performed By: #### L IPID, TSH, CMP #### [facility] [address] [place] [address] Dr. Karlo Beltre EGFR-NON AF [place] >60 Normal >=60 [facility] Comment on above: Performed By: #### L IPID, TSH, CMP #### [facility] [address] [address] [address] Karlo Beltre Globulin (S) [Mass/Vol] 3.7 g/dL Normal [facility] Comment on above: Performed By: #### L IPID, TSH, CMP #### [facility] [address] [address] [address] Karlo Beltre Glucose [Mass/Vol] 95 mg/dL Normal 74-106 [facility] Comment on above: Performed By: #### L IPID, TSH, CMP #### [facility] [address] [place] [address] Dr. Karlo Beltre Potassium [Moles/Vol] 4.1 mmol/L Normal 3.5-5.1 [facility] Comment on above: Performed By: #### L IPID, TSH, CMP #### [facility] [address] [place] [address] Dr. Karlo Beltre Protein [Mass/Vol] 7.6 g/dL Normal 6.4-8.2 [facility] Comment on above: Performed By: #### L IPID, TSH, CMP #### [facility] [address] [place] [address] Dr. Karlo Beltre Sodium [Moles/Vol] 143 mmol/L Normal 136-145 [facility] Comment on above: Performed By: #### L IPID, TSH, CMP #### [facility] [address] [place] [address] Dr. Karlo Beltre Urea nitrogen [Mass/Vol] 17.0 mg/dL Normal 7.0-18.0 [facility] Comment on above: Performed By: #### L IPID, TSH, CMP #### [facility] [address] [place] [address] Dr. Karlo Beltre Urea nitrogen/Creatinine [Mass ratio] 20.7 mg/mg Normal [facility] Comment on above: Performed By: #### L IPID, TSH, CMP #### [facility] [address] [place] [address] Dr. Karlo Beltre TSHon 10-23-2022 TSH 1.095 uIU/mL Normal 0.358-3.[address] [facility] Comment on above: Performed By: #### L IPID, TSH, CMP #### [facility] [address] [place] [address] Dr. Karlo Beltre MG MAMM SCREEN 3D CJ CADon 06-30-2022 MG MAMM SCREEN 3D CJ CAD Patient: JEANNE ANNA Exam Date: 06/30/2022 : 1970 Gender:F Ordering : DR RYAN JIN D.O. Admission #: [id number] Family : Order #: [id number] CLICK HERE TO VIEW EXAM RADIOLOGY REPORT PROCEDURE: MAMMOGRAM SCREENING 3D BILATERAL CAD COMPARISON: MG MAMM SCREEN CJ W CAD, 05/17/2020. MG MAMM SCREEN 3D CJ CAD, 06/27/2021. INDICATIONS: Screening mammography Calculator Name NCI Breast Cancer Risk Assessment Tool 5 Year Breast Cancer Risk 0.80% Lifetime Breast Cancer Risk 6.90% Personal Breast Cancer No Personal Ovarian Cancer No Treatments None Family Cancers Aunt-paternal with breast cancer at age 70; Father with lung cancer at age 46. LOCATION: [facility] BREAST COMPOSITION: Scattered areas fibroglandular density. FINDINGS: DIAGNOSTIC CATEGORY 1--NEGATIVE. NO CHANGE FROM COMPARISON ASSESSMENT. Scattered benign-appearing lymph nodes are present. RIGHT BREAST: No significant suspicious finding. LEFT BREAST: No significant suspicious finding. RECOMMENDATIONS: ROUTINE MAMMOGRAM AND CLINICAL EVALUATION IN 12 MONTHS. PLEASE NOTE: A NORMAL MAMMOGRAM DOES NOT EXCLUDE THE POSSIBILITY OF BREAST CANCER. A CLINICALLY SUSPICIOUS PALPABLE LUMP SHOULD BE BIOPSIED. Dictated by: Maribel Dejesus MD on 07/02/2022 at 08:01 Approved by: Maribel Dejesus MD on 07/02/2022 at 08:04 Normal [facility] ASYMPTOMATIC COVID-19 ANTIGE Non 05-24-2022 EUA Statement SEE BELOW Normal [facility] Comment on above: Result Comment: This test has not been FDA cleared or approved, but has been authorized by the FDA under an Emergency Use Authorization (EUA) for use by authorized laboratories certified under CLIA that meet the requirements to perform moderate or high complexity testing. This test has been authorized only for the detection of proteins from SARS-CoV-2, not for any other viruses or pathogens. The emergency use of this test is authorized for the duration of the declaration that circumstances exist justifying the authorization of emergency use of in vitro diagnostic tests for detection and/or diagnosis of Covid-19 under section 564(b)(1) of the Act, 21 U.S.C. 360bbb-3(b)(1), unless the declaration is terminated or authorization is revoked sooner. Performed By: #### C VDAGA #### [facility] [address] [place] [address] Dr. Karlo Beltre SARS-CoV-2 (COVID-19) RNA YUNG+probe Ql (Unsp spec) Negative Normal NEGATIVE [facility] Comment on above: Result Comment: Nega tive results are presumptive. They do not preclude infection and should not be used as the sole basis for treatment decisions. Additional confirmatory testing by a molecular method should be considered. Performed By: #### C VDAGA #### [facility] [address] [place] [address] Dr. Karlo Beltre Covid-19 PCR (CVDTB)on 05-05 SARS-CoV-2 (COVID-19) RNA YUNG+probe Ql (Unsp spec) Detected Critically abnormal NOT DETECTED [facility] Comment on above: Result Comment: This test is not yet approved or cleared by the [place] FDA. When there are no FDA-approved or cleared tests available, and other criteria are met, FDA can make tests available under an emergency access mechanism called an Emergency Use Authorization (EUA). The EUA for this test is supported by the [employer] Director of Health and Human Service's declaration that circumstances exist to justify the emergency use of in vitro diagnostics for the detection and/or diagnosis of the virus that causes COVID-19. This EUA will remain in effect for the duration of the COVID-19 declaration justifying emergency of IVDs, unless it is terminated or revoked by the FDA (after which the test may no longer be used). Performed By: #### C VDAGA #### [facility] [address] [place] [address] Dr. Karlo Beltre HERPES SIMPLEX VIRUS 1/2 DNA PCRon 05-19-2022 HSV-1 DNA Negative Normal Negative [facility] Comment on above: Performed By: #### H SVPCR #### [facility] [address] [place], [place] [address] Dr. Karlo Beltre HSV-2 DNA Positive Abnormal Negative [facility] Comment on above: Result Comment: This test was developed and its performance characteristics determined by [employer]. It has not been cleared or approved by the [place].S. Food and Drug Administration. The FDA has determined that such clearance or approval is not necessary. This test is used for clinical purposes. It should not be regarded as investigational or research. Performed By: #### H SVPCR #### [facility] [address] [place], [place] [address] Dr. 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 Typing was confirmed by monoclonal antibody microscopic immunofluorescence. Performed By: #### C VDAGA #### [facility] [address] [place] [address] Dr. Karlo Beltre Covid-19 PCR (CVDTB)on 04-04 SARS-CoV-2 (COVID-19) RNA YUNG+probe Ql (Unsp spec) Not detected Normal NOT DETECTED [facility] Comment on above: Result Comment: This test is not yet approved or cleared by the [place] FDA. When there are no FDA-approved or cleared tests available, and other criteria are met, FDA can make tests available under an emergency access mechanism called an Emergency Use Authorization (EUA). The EUA for this test is supported by the [place] Director of Health and Human Service's (HHS's) declaration that circumstances exist to justify the emergency use of in vitro diagnostics for the detection and/or diagnosis of the virus that causes COVID-19. This EUA will remain in effect (meaning this test can be used) for the duration of the COVID-19 declaration justifying emergency of IVDs, unless it is terminated or revoked by FDA (after which the test may no longer be used). When diagnostic testing is negative, the possibility of a false negative should be considered in the context of a patient's recent exposures and the presence of clinical signs and symptoms consistent with SARS-CoV-2. Performed By: #### C DWIGHTAGA #### [facility] [address] [place], [place] [address] Dr. Karlo Beltre [facility]19 [facility]on SARS-CoV-2 (COVID-19) RNA YUNG+probe Ql (Unsp spec) Not detected Normal NOT DETECTED [facility] Comment on above: Result Comment: When diagnostic testing is negative, the possibility of a false negative should be considered in the context of a patient's recent exposures and the presence of clinical signs and symptoms consistent with SARS-CoV-2. This test is not yet approved or cleared by the [place] FDA. When there are no FDA-approved or cleared tests available, and other criteria are met, FDA can make tests available under an emergency access mechanism called an Emergency Use Authorization (EUA). The EUA for this test is supported by the Bernard of Health and Human Service's declaration that circumstances exist to justify the emergency use of in vitro diagnostics for the detection and/or diagnosis of the virus that causes COVID-19. This EUA will remain in effect for the duration of the COVID-19 declaration justifying emergency of IVDs, unless it is terminated or revoked by the FDA (after which the test may no longer be used). Performed By: #### C DWIGHTAGA #### [facility] [address] [place], [place] [address] Dr. Karlo Beltre Office Visiton 04-07-2022 Follow-up visit [id number] Jeanne Anna 1970 F Date Provider Department Center 04/07/2022 [facility] No family history on file Level of Service:[address]4516 [place] OFFICE/OUTPATIENT [facility] 30-44 MINUTES (GC) Reason for Visit and Comments: Pain [136] Normal [facility] XR WRIST RT 2Von 12-15-2021 XR WRIST RT 2V EXAM: XR WRIST RT 2V HISTORY: Pain COMPARISON: None. Exam: XR WRIST RT 2V Clinical Indication: Pain. Comparison: November 25, 2021. FINDINGS: Fractures of the distal radius with impaction and dorsal angulation. The radiocarpal joint is unremarkable. The distal radial ulnar joint is unremarkable. The carpometacarpal joints are unremarkable. There is no soft tissue swelling or joint effusion. There are no radio-opaque foreign bodies. If there is further concern, followup radiographs or MRI of the wrist may be performed for complete assessment. IMPRESSION: Impacted fracture of the distal radius with mild healing SL: [id number] Electronically authenticated by: MICHOACANO CARRILLO Date: 2021-12-15 21:12 Normal [facility] CBC AUTO DIFFon 11-25-2021 BASO # 0.1 103/ul Normal 0.0-0.1 [facility] Comment on above: Performed By: #### C VDAGA #### [facility] [address] [place] [address] [address] Karlo Beltre Basophils/100 WBC (Bld) 0.8 % Normal 0.2-2.0 [facility] Comment on above: Performed By: #### C VDAGA #### [facility] [address] [place] [address] Dr. Karlo Beltre EO # 0.1 103/ul Normal 0.0-0.7 [facility] Comment on above: Performed By: #### C VDAGA #### [facility] [address] [place] [address] [address] Karlo Beltre Eosinophils/100 WBC (Bld) 1.8 % Normal 0.9-7.0 [facility] Comment on above: Performed By: #### C VDAGA #### [facility] [address] [place] [address] Dr. Karlo Beltre Erythrocyte distribution width (RBC) [Ratio] 12.7 % Normal 11.0-15.0 [facility] Comment on above: Performed By: #### C VDAGA #### [facility] [address] [place] [address] Dr. Karlo Beltre Hematocrit (Bld) [Volume fraction] 38.9 % Normal 36.0-48.0 [facility] Comment on above: Performed By: #### C VDAGA #### [facility] [address] [place] [address] Dr. Karlo Beltre Hemoglobin (Bld) [Mass/Vol] 12.6 g/dL Normal 12.0-16.0 [facility] Comment on above: Performed By: #### C VDAGA #### [facility] [address] [place] [address] Dr. Karlo Beltre IG # 0.01 10e3/ul Normal 0.00-0.03 [facility] Comment on above: Performed By: #### C VDAGA #### [facility] [address] [place] [address] Dr. Karlo Beltre IG % 0.2 % Normal 0.0-0.5 [facility] Comment on above: Performed By: #### C VDAGA #### [facility] [address] [place] [address] Dr. Karlo Beltre LYMPH # 2.2 103/ul Normal 1.2-3.8 [facility] Comment on above: Performed By: #### C VDAGA #### [facility] [address] [place] [address] Dr. Karlo Beltre Lymphocytes/100 WBC (Bld) 36.1 % Normal 20.5-60.0 [facility] Comment on above: Performed By: #### C VDAGA #### [facility] [address] [place] [address] Dr. Karlo Beltre MANUAL DIFF REQ NO Normal [facility] Comment on above: Performed By: #### C VDAGA #### [facility] [address] [place] [address] Dr. Karlo Beltre MCH (RBC) [Entitic mass] 30.3 pg Normal 26.7-34.0 [facility] Comment on above: Performed By: #### C VDAGA #### [facility] [address] [place] [address] Dr. Karlo Beltre MCHC (RBC) [Mass/Vol] 32.4 g/dL Normal 29.9-35.2 [facility] Comment on above: Performed By: #### C VDAGA #### [facility] [address] [place] [address] Dr. Karlo Beltre MCV (RBC) [Entitic vol] 93.5 fL Normal 81.0-99.0 [facility] Comment on above: Performed By: #### C VDAGA #### [facility] [address] [place] [address] [address] Karlo Beltre MONO # 0.4 103/ul Normal 0.3-0.8 [facility] Comment on above: Performed By: #### C VDAGA #### [facility] [address] [place] [address] [address] Karlo Beltre Monocytes/100 WBC (Bld) 6.4 % Normal 1.7-12.0 [facility] Comment on above: Performed By: #### C VDAGA #### [facility] [address] [place] [address] [address] Karlo Beltre NEUT # 3.4 103/ul Normal 1.4-6.5 [facility] Comment on above: Performed By: #### C VDAGA #### [facility] [address] [place] [address] Dr. Karlo Beltre Neutrophils/100 WBC (Bld) 54.7 % Normal 43.0-75.0 [facility] Comment on above: Performed By: #### C VDAGA #### [facility] [address] [place] [address] [address] Karlo Beltre Platelet mean volume (Bld) [Entitic vol] 8.9 fL Critically low 9.5-13.5 [facility] Comment on above: Performed By: #### C VDAGA #### [facility] [address] [place] [address] [address] Karlo Beltre PLT 251 103/ul Normal 150-[address] [facility] Comment on above: Performed By: #### C VDAGA #### [facility] [address] [place] [address] [address] Karlo Beltre RBC 4.16 106/ul Critically low 4.20-5.40 [facility] Comment on above: Performed By: #### C VDAGA #### [facility] [address] [place] [address] [address] Karlo Beltre WBC 6.1 103/ul Normal 4.0-11.[address] [facility] Comment on above: Performed By: #### C VDAGA #### [facility] [address] [place] [address] [address] Karlo Beltre GLYCOHEMOGLOBIN A1Con 2021 ADA RECOMMENDATION SEE BELOW Normal [facility] Comment on above: Result Comment: ADA RECOMMENDED LIMIT 4.0 - 6.0 ADA THERAPEUTIC TARGET < 7.0 ACTION SUGGESTED > 7.0 Performed By: #### A 1C #### [facility] [address] [place] [address] [address] Karlo Beltre Glucose [Mass/Vol] 117 mg/dL Normal [facility] Comment on above: Performed By: #### A 1C #### [facility] [address] [place] [address] Dr. Karlo Beltre HbA1c (Bld) [Mass fraction] 5.7 % Normal 4.5-6.2 [facility] Comment on above: Performed By: #### A 1C #### [facility] [address] [place] [address] Dr. Karlo Beltre LIPID PROFILEon 11-25-2021 CHOL-HDL RATIO NORM SEE BELOW Normal [facility] Comment on above: Result Comment: 3.3 - 4.4 LOW RISK 4.4 - 7.1 AVERAGE RISK 7.1 - 11.0 MODERATE RISK >11.0 HIGH RISK Performed By: #### T NOBLE, LIPID, CMP #### [facility] [address] [place] [address] Dr. Karlo Beltre Cholesterol [Mass/Vol] 229 mg/dL Critically high <=200 [facility] Comment on above: Performed By: #### T NOBLE, LIPID, CMP #### [facility] [address] [place] [address] Dr. Karlo Beltre Cholesterol in HDL [Mass/Vol] 83 mg/dL Critically high 40-60 [facility] Comment on above: Performed By: #### T SH, LIPID, CMP #### [facility] [address] [place] [address] Dr. Karlo Beltre Cholesterol in LDL [Mass/Vol] 132.2 mg/dL Normal [facility] Comment on above: Performed By: #### T SH, LIPID, CMP #### [facility] [address] [place] [address] [address] Karlo Beltre Cholesterol.total/Ch olesterol in HDL [Mass ratio] 2.8 {ratio} Normal [facility] Comment on above: Performed By: #### T NOBLE, LIPID, CMP #### [facility] [address] [place] [address] [address] Karlo Beltre HDL NORMAL > or = 60 mg/dl - LOW CARDIOVASCULAR RISK <40 mg/dl - HIGH CARDIOVASCULAR RISK Normal [facility] Comment on above: Performed By: #### T NOBLE, LIPID, CMP #### [facility] [address] [place] [address] Dr. Karlo Beltre LDL CALC NORMAL SEE BELOW Normal [facility] Comment on above: Result Comment: <100 mg/dl OPTIMAL 100 - 129 mg/dl NEAR OR ABOVE OPTIMAL 130 - 159 mg/dl BORDERLINE HIGH 160 - 189 mg/dl HIGH >190 mg/dl VERY HIGH Performed By: #### T NOBLE, LIPID, CMP #### [facility] [address] [place] [address] [address] Karlo Beltre Triglyceride [Mass/Vol] 69 mg/dL Normal <=150 [facility] Comment on above: Performed By: #### T NOBLE, LIPID, CMP #### [facility] [address] [place] [address] Dr. Karlo Beltre VLDL CALC 13.8 mg/dL Normal [facility] Comment on above: Performed By: #### T NOBLE, LIPID, CMP #### [facility] [address] [place] [address] Dr. Karlo Beltre PROF 14(COMP METB)on 022 Albumin [Mass/Vol] 3.9 g/dL Normal 3.4-5.0 [facility] Comment on above: Performed By: #### T NOBLE, LIPID, CMP #### [facility] [address] [place] [address] Dr. Karlo Beltre Albumin/Globulin [Mass ratio] 1.1 {ratio} Normal [facility] Comment on above: Performed By: #### T NOBLE, LIPID, CMP #### [facility] [address] [place] [address] Dr. Karlo Beltre ALP [Catalytic activity/Vol] 48 U/L Normal 46-116 [facility] Comment on above: Performed By: #### T SH, LIPID, CMP #### [facility] [address] [place] [address] [address] Karlo Beltre ALT [Catalytic activity/Vol] 20 U/L Normal 14-59 [facility] Comment on above: Performed By: #### T SH, LIPID, CMP #### [facility] [address] [place] [address] [address] Karlo Beltre Anion gap [Moles/Vol] 12.2 mmol/L Normal [facility] Comment on above: Performed By: #### T NOBLE, LIPID, CMP #### [facility] [address] [place] [address] Dr. Karlo Beltre AST [Catalytic activity/Vol] 13 U/L Critically low 15-37 [facility] Comment on above: Performed By: #### T NOBLE, LIPID, CMP #### [facility] [address] [place] [address] Dr. Karlo Beltre Bilirubin [Mass/Vol] 0.3 mg/dL Normal 0.2-1.0 [facility] Comment on above: Performed By: #### T NOBLE, LIPID, CMP #### [facility] [address] [place] [address] Dr. Karlo Beltre Calcium [Mass/Vol] 9.0 mg/dL Normal 8.5-10.1 [facility] Comment on above: Performed By: #### T SH, LIPID, CMP #### [facility] [address] [place] [address] Dr. Karlo Beltre Chloride [Moles/Vol] 105 mmol/L Normal 98-[address] [facility] Comment on above: Performed By: #### T SH, LIPID, CMP #### [facility] [address] [place] [address] Dr. Karlo Beltre CO2 [Moles/Vol] 28.6 mmol/L Normal 21.0-32.0 [facility] Comment on above: Performed By: #### T SH, LIPID, CMP #### [facility] [address] [place] [address] [address] Karlo Beltre Creatinine [Mass/Vol] 0.77 mg/dL Normal 0.55-1.[address] [facility] Comment on above: Performed By: #### T SH, LIPID, CMP #### [facility] [address] [place] [address] [address] Karlo Beltre EGFR-AF [place]LANDER >60 Normal >=60 [facility] Comment on above: Performed By: #### T SH, LIPID, CMP #### [facility] [address] [place] [address] [address] Karlo Beltre EGFR-NON AF [place]ER >60 Normal >=[address] [facility] Comment on above: Performed By: #### T SH, LIPID, CMP #### [facility] [address] [place] [address] [address] Karlo Beltre Globulin (S) [Mass/Vol] 3.7 g/dL Normal [facility] Comment on above: Performed By: #### T SH, LIPID, CMP #### [facility] [address] [place] [address] [address] Karlo Beltre Glucose [Mass/Vol] 95 mg/dL Normal 74-106 [facility] Comment on above: Performed By: #### T NOBLE, LIPID, CMP #### [facility] [address] [place] [address] [address] Karlo Beltre Potassium [Moles/Vol] 3.8 mmol/L Normal 3.5-5.[address] [facility] Comment on above: Performed By: #### T SH, LIPID, CMP #### [facility] [address] [place] [address] [address] Karlo Beltre Protein [Mass/Vol] 7.6 g/dL Normal 6.4-8.2 [facility] Comment on above: Performed By: #### T SH, LIPID, CMP #### [facility] [address] [address] [address] Karlo Beltre Sodium [Moles/Vol] 142 mmol/L Normal 136-145 [facility] Comment on above: Performed By: #### T SH, LIPID, CMP #### [facility] [address] [place] [address] Dr. Karlo Beltre Urea nitrogen [Mass/Vol] 18.0 mg/dL Normal 7.0-18.0 [facility] Comment on above: Performed By: #### T SH, LIPID, CMP #### [facility] [address] [place] [address] Dr. Karlo Beltre Urea nitrogen/Creatinine [Mass ratio] 23.4 mg/mg Normal [facility] Comment on above: Performed By: #### T SH, LIPID, CMP #### [facility] [address] [place] [address] Dr. Karlo Beltre TSHon 11-25-2021 TSH 0.775 uIU/mL Normal 0.358-3.740 [facility] Comment on above: Performed By: #### T SH, LIPID, CMP #### [facility] [address] [place] [address] Dr. Karlo Beltre TSH RANGE SEE BELOW Normal [facility] Comment on above: Result Comment: <0.3 4 UIU/ml HYPERTHYROID 0.34-5.60 UIU/ml EUTHYROID >5.60 UIU/ml HYPOTHYROID Performed By: #### T SH, LIPID, CMP #### [facility] [address] [place] [address] Dr. Karlo Beltre XR DEXA BONE DENSITYon 11-25 XR DEXA BONE DENSITY EXAMINATION: XR DEX A BONE DENSITY, 11/25/2021 8:14 AM EDT HISTORY: History of osteoporotic fracture COMPARISON: None. TECHNIQUE: Dual-energy X-ray absorptiometry (DEXA) bone density study performed for the axial skeleton. FINDINGS: SPINE ANALYSIS: Average bone mineral density is 1.356 g/cm2. T-score (standard deviation relative to young adult mean): 1.5 . HIP ANALYSIS: Lowest bone mineral density is within the right trochanter, 0.720 g/cm2. T-score (standard deviation relative to young adult mean): -1.1 . IMPRESSION: World [employer] Classification: Osteopenia - Moderate Fracture Risk Electronically authenticated by: BYRON LEE Date: 2021-11-25 08:53 Normal [facility] XR WRIST RT 2Von 11-04-2021 XR WRIST RT 2V EXAM: XR WRIST RT 2V HISTORY: Closed fracture of distal end of radius Exam: left XR WRIST RT 2V Clinical Indication: Closed fracture of distal end of radius. Comparison: October 28, 2021. FINDINGS: Fracture of the distal radius is noted with impaction. There is overlying cast. There is normal alignment of the carpal bones, with normal scapholunate, lunotriquetral and capitate-lunate alignment. The carpal bone alignment arcs appear unremarkable. The radiocarpal joint is narrowed the distal radial ulnar joint is narrowed. The carpometacarpal joints are unremarkable. There is diffuse soft tissue swelling. If there is further concern, followup radiographs or MRI of the wrist may be performed for complete assessment. IMPRESSION: Impacted distal radius fracture, grossly unchanged Electronically authenticated by: MICHOACANO CARRILLO Date: 2021-11-04 12:54 Normal [facility] Outside Colonoscopyon 2020 Outside Colonoscopy [id number] #1.00CD:127 Normal [facility] Lab Reportson 12-31-2020 Lab Reports [id number] #1.00CD:127 Normal [facility] Consent for Procedure/Surger yon 12-04-2020 Consent for Procedure/Surgery [id number] #1.00CD:127 Normal [facility] [place] [facility] [place] December 04, 2020 RYAN JIN, [address] [place] [address] Re: JEANNE ANNA Date of : 1970 Thank you for your referral of Jeanne Anna who was seen on consultation on December 03, 2020, for screening colonoscopy. I have enclosed my consultation notes for your review, and I will be happy to follow Jeanne. Sincerely, Patricio Drew MD General Surgery Normal [facility] Ambulatory Clinical Summaryo n 12-03-2020 Ambulatory Clinical Summary {[id number]}CD:[id number] Normal [facility] General Surgery Office/Clini c Noteon 12-03-2020 General Surgery Office/Clinic Note Chief Complaint Consult for Colonoscopy HPI Staff 50 year old female referred by Dr. Jin for Screening Colonoscopy. Previous colonoscopy completed 16 years ago at [facility] by Dr Forte. No family history of colon cancer. Denies symptoms of rectal pain or bleeding. History of hemorrhoids. Occasional constipation/diarrhe a. Recent Lower Left quadrant pain x 1 month. Taking probiotics. No changes with bowel habits. History of Present Illness 50 yo female with h/o DMII, referred for colorectal screening, last colonoscopy 16 years ago, reportedly normal, no change in bms or blood in stools, mild intermittent LLQ pain, in area of previous hernia repair, no bulge or skin changes, no N/V; abdominal operations significant for ; RICARDO, appendectomy and incisional hernia repair; on Nabumetone, no asa, no SBE prophylaxis; no fmhx of GI malignancy or IBD. Review of Systems PHQ Score Initial Depression Screen Score: 0 ROS - Provider Constitutional: no fever, no sweats, no weight loss. Eyes: no glasses, no blurred vision, no visual loss. ENMT: no dentures, no hoarseness, no swallowing difficulties, no hearing loss, no ear infection(s), no nose bleeds. Cardiovascular: normal blood pressure, no chest pain, regular heartbeat, no heart murmur. Respiratory: no shortness of breath, no cough, no asthma, no wheezing. Gastrointestinal: no nausea, no vomiting, no diarrhea, no constipation, no blood in stool, no change in bowel habits, mild abdominal pain, no hepatitis. Genitourinary: no kidney stones, no urine infection, no dysuria. Musculoskeletal: no pain, no weakness. Skin: no changing moles, no rash, no skin lumps. Neurologic: no seizures, no epilepsy, no headache. Psychiatric: no emotional or psychiatric problem. Heme/Lymph: no bleeding problems, no anemia, no blood clots, no transfusions. Allergy/Immunologic: no swollen lymph nodes/glands, no IV drug abuse. Other: Additional ROS info: Except as noted in the above Review of Systems and in the History of Present Illness, all other systems have been reviewed and are negative or noncontributory. Physical Exam Vitals & Measurements T: 37.0 ?C (Tympanic) BP: 140/80 HT: 157.5 cm HT: 157.48 cm WT: 87.1 kg WT: 87.089 kg BMI: 35.12 HEENT: normal conjunctiva, sclera clear, no scleral icterus, EOM intact, PERRLA, oral mucosa moist without lesions. Neck: trachea midline, no mass, symmetric, no thyromegaly or nodules, no adenopathy Respiratory: lungs CTA, respirations non labored. Cardiovascular: regular rate and rhythm, no murmur, no pedal edema or varicosities. Gastrointestinal: obese, soft, non distended, mild tenderness,LLQ, no peritoneal signs, no masses, no palpable hernias, diastasis recti no, no hepatosplenomegaly; normal bs Musculoskeletal: normal gait, digits and nails without infection, nodes, cyanosis, clubbing. Skin: no rashes, no lesions, no ulcers, no subcutaneous nodules, induration. Psychiatric/Neuro: oriented to time, place, person, judgement normal, affect appropriate for age, insight intact, no focal deficits. Tests: review of old records completed, Discussed surgical options, risks, and possible complications with patient. Assessment/Plan 1. Screening for malignant neoplasm of colon (Z12.11: Encounter for screening for malignant neoplasm of colon) plan colonoscopy under anesthesia, informed consent obtainedl 2. BMI 35.0-35.9,adult (Z68.35: Body mass index [BMI] 35.0-35.9, adult) recommend healthy diet and exercise. Follow-up No qualifying data available Patient Education Colonoscopy, Adult, Care After Colonoscopy Exercising to Lose Weight Problem List/Past Medical History Ongoing Acute strain of neck muscle BMI 35.0-35.9,adult Equinus contracture of right ankle Exogenous obesity Family history of dementia NORI (generalized anxiety disorder) History of encephalitis History of endometriosis History of pilonidal cyst IFG (impaired fasting glucose) Instability of right subtalar joint Left foot pain Lumbar paraspinal muscle spasm Lumbar spondylosis Lumbar strain Mastitis, left, acute Posterior tibial tendon dysfunction, right Screening for malignant neoplasm of colon Sinusitis, bacterial Historical No qualifying data Procedure/Surgical History [facility] - Carpal tunnel release (08/05/2015), Ventral hernia (07/05/2009), Colonoscopy (07/05/2004), Appendectomy (07/05/2000), RICARDO - Total abdominal hysterectomy (07/05/1985), delivery only;. Medications metformin 500 mg ER Tab, 500 mg= 1 tab(s), Oral, Daily nabumetone 1000 mg oral tablet, 1000 mg= 1 tab(s), Oral, BID tizanidine 4 mg oral capsule, 4 mg= 1 cap(s), Oral, TID traMADOL 50 mg Tab, Oral, q6hr Allergies lisinopril (Cough) Social History Tobacco Never (less than 100 in lifetime) Tobacco Use:. Never Smokeless Tobacco Use:., 12/03/2020 Family History Alzheimer disease: Mother. Cancer: Father. Immunizations Vaccine Date Status S (more content not included)... Normal [facility] Comment on above: Result Comment: Elec tronically Signed By: JOÃO ROMERO, Patricio Sexton.paolo\Date and Time Signed: 12/03/20 15:24 EDT Patient Educationon 12-04-19 21 Patient Education Colonoscopy A colonoscopy is an exam to evaluate your entire colon. In this exam, your colon is cleansed. A long fiberoptic tube is inserted through your rectum and into your colon. The fiberoptic scope (endoscope ) is a long bundle of enclosed and very flexible fibers. These fibers transmit light to the area examined and send images from that area to your caregiver. Discomfort is usually minimal. You may be given a drug to help you sleep (sedative ) during or prior to the procedure. This exam helps to detect lumps (tumors ), polyps, inflammation, and areas of bleeding. Your caregiver may also take a small piece of tissue (biopsy ) that will be examined under a microscope. LET YOUR CAREGIVER KNOW ABOUT: ? Allergies to food or medicine. ? Medicines taken, including vitamins, herbs, eyedrops, swoz-vwb-kiylhtu medicines, and creams. ? Use of steroids (by mouth or creams). ? Previous problems with anesthetics or numbing medicines. ? History of bleeding problems or blood clots. ? Previous surgery. ? Other health problems, including diabetes and kidney problems. ? Possibility of , if this applies. BEFORE THE PROCEDURE ? A clear liquid diet may be required for 2 days before the exam. ? Ask your caregiver about changing or stopping your regular medications. ? Liquid injections (enemas ) or laxatives may be required. ? A large amount of electrolyte solution may be given to you to drink over a short period of time. This solution is used to clean out your colon. ? You should be present 60 minutes prior to your procedure or as directed by your caregiver. AFTER THE PROCEDURE ? If you received a sedative or pain relieving medication, you will need to arrange for someone to drive you home. ? Occasionally, there is a little blood passed with the first bowel movement. Do not be concerned. FINDING OUT THE RESULTS OF YOUR TEST Not all test results are available during your visit. If your test results are not back during the visit, make an appointment with your caregiver to find out the results. Do not assume everything is normal if you have not heard from your caregiver or the medical facility. It is important for you to follow up on all of your test results. HOME CARE INSTRUCTIONS ? It is not unusual to pass moderate amounts of gas and experience mild abdominal cramping following the procedure. This is due to air being used to inflate your colon during the exam. Walking or a warm pack on your belly (abdomen ) may help. ? You may resume all normal meals and activities after sedatives and medicines have worn off. ? Only take pcmj-lww-vuyhnkf or prescription medicines for pain, discomfort, or fever as directed by your caregiver. Do not use aspirin or blood thinners if a biopsy was taken. Consult your caregiver for medicine usage if biopsies were taken. SEEK IMMEDIATE MEDICAL CARE IF: ? You have a fever. ? You pass large blood clots or fill a toilet with blood following the procedure. This may also occur 10 to 14 days following the procedure. This is more likely if a biopsy was taken. ? You develop abdominal pain that keeps getting worse and cannot be relieved with medicine. Document Released: 06/18/2001 Document Revised: 09/12/2012 Document Reviewed: 01/31/2009 ExitCare? Patient Information ?2013 [employer]. Physical Medicine and Rehabilitation Exercising to Lose Weight Exercise is structured, repetitive physical activity to improve fitness and health. Getting regular exercise is important for everyone. It is especially important if you are overweight. Being overweight increases your risk of heart disease, stroke, diabetes, high blood pressure, and several types of cancer. Reducing your calorie intake and exercising can help you lose weight. Exercise is usually categorized as moderate or vigorous intensity. To lose weight, most people need to do a certain amount of moderate-intensity or vigorous-intensity exercise each week. Moderate-intensity exercise Moderate-intensity exercise is any activity that gets you moving enough to burn at least three times more energy (calories) than if you were sitting. Examples of moderate exercise include: ? Walking a mile in 15 minutes. ? Doing light yard work. ? Biking at an easy pace. Most people should get at least 150 minutes (2 hours and 30 minutes) a week of moderate-intensity exercise to maintain their body weight. Vigorous-intensity exercise Vigorous-intensity exercise is any activity that gets you moving enough to burn at least six times more calories than if you were sitting. When you exercise at this intensity, you should be working hard enough that you are not able to carry on a conversation. Examples of vigorous exercise include: ? Running. ? Playing a team sport, such as football, basketball, and soccer. ? Jumping rope. Most people should get at least 75 minutes (1 hour and 15 minutes) a week of vig (more content not included)... [facility] Physician Referralon 021 Physician Referral [id number] [facility] Sherri 09-04-2019 CNPN Telephone (DILLONADFV) JEANNE ANNA ([id number]) 1970 F Date Time Provider Department 09/04/19 MIMI STACY During your visit today, we recorded the following information about you: [place] Nieto [facility] [place]04/[place] 2:11 PM Signed Received outside medical records from [facility]. Scanned into patient's chart. Mimi Stacy MD 10/23/2019 10:53 AM Signed Tried calling numerous times no answer. Left a message to call back if she still wants to do phone encounter Deisy Marina NAOMI 10/24/2019 9:19 AM Signed Called patient no answer . Left voice mail. Allergies As of Date: 09/04/2019 (Not on File) Date Reviewed: Never Reviewed Reason for Visit: Appointment [186] Reason For Visit History Recorded Problem List As Of Date: 09/04/2019 (None) Encounter Status:Closed by VICKEY BELL on 03/25/20 [facility] QuantiFERON TB Gold (In Tube ) LCon 01-11-2019 QuantiFERON Criteria LC Comment [facility] Comment on above: Result Comment: The QuantiFERON-TB Gold Plus result is determined by subtracting the Nil value from either TB antigen (Ag) tube. The mitogen tube serves as a control for the test. Performed By: #### 4 [id number] #### [facility] (DEFAULT) [address] [place] [address] QuantiFERON Mitogen Value LC 3.65 IU/mL [facility] Comment on above: Result Comment: Perf ormed At: [facility] [address] [id number] Jerman Villagran PhD Ph:[phone] Performed By: #### 4 [id number], [id number] #### [facility] (DEFAULT) [address] [place] [address] QuantiFERON Nil Value LC 0.07 IU/mL [facility] Comment on above: Performed By: #### 4 [id number], [id number] #### [facility] (DEFAULT) [address] [place] [address] QuantiFERON TB1 Ag Value LC 0.10 IU/mL [facility] Comment on above: Performed By: #### 4 [id number], [id number] #### [facility] (DEFAULT) [address] [place] [address] QuantiFERON TB2 Ag Value LC 0.09 IU/mL [facility] Comment on above: Performed By: #### 4 [id number], [id number], [id number] #### [facility] (DEFAULT) [address] [place] [address] QuantiFERON-TB Gold Plus LCo n 01-11-2019 QuantiFERON-TB Gold Plus LC Negative Negative [facility] Comment on above: Result Comment: Perf ormed At: [address] [id number] Jerman Villagran PhD Ph:[phone] Performed By: #### 4 [id number], [id number] #### [facility] (DEFAULT) [address] [place] [address] QuantiFERON Incubation LC Comment [facility] Comment on above: Result Comment: [facility] received incubated specimen. Performed At: [address] [id number] Jerman Villagran PhD Ph:[phone] Performed By: #### 4 [id number], [id number], [id number] #### [facility] (DEFAULT) [address] [place] [address] Lab - Toxicology Resultson 0 01-10-2019 Lab - Toxicology Results [id number] Normal [facility] Measles/Mumps/Rubella Immuni ty LCon 01-09-2019 Mumps Abs, IgG LC 42.7 AU/mL Immune >10.9 [facility] Comment on above: Result Comment: Nega tive <9.0 Equivocal 9.0 - 10.9 Positive >10.9 A positive result generally indicates past exposure to Mumps virus or previous vaccination. Performed At: [address] [id number] Jerman Villagran PhD Ph:[phone] Performed By: #### 4 [id number], [id number], [id number] #### [facility] (DEFAULT) [address] [place] [address] Rubella Antibodies, IgG LC <0.90 Low Immune >0.99 [facility] Comment on above: Result Comment: Non- immune <0.90 Equivocal 0.90 - 0.99 Immune >0.99 Performed By: #### 4 [id number], [id number], [id number] #### [facility] (DEFAULT) [address] [place] [address] Rubeola Ab, IgG, EIA LC <25.0 Low Immune >29.9 [facility] Comment on above: Result Comment: Nega tive <25.0 Equivocal 25.0 - 29.9 Positive >29.9 Presence of antibodies to Rubeola is presumptive evidence of immunity except when acute infection is suspected. Performed By: #### 4 [id number], [id number], [id number] #### [facility] (DEFAULT) [address] [place] [address] Nicotine Metabolite, Urine L Con 01-09-2019 Cotinine LC Negative Isxqmv=[id number] [facility] Comment on above: Result Comment: Perf ormed At: [facility] [place] [address] [place], [place] [id number] Bree Douglas PhD Ph:[phone] Performed By: #### 1 [id number] #### [facility] (DEFAULT) [address] [place] [address] Vital Signs Date Time Vital Sign Value Performing Clinician Facility 06-04-2023 10:00-0500 Body height 158.75 cm Ryan [employer] Other [facility] Other 06-04-2023 10:00-0500 Body mass index (BMI) [Ratio] 30.74 kg/m2 Ryan [employer] Other [facility] Other 06-04-2023 10:00-0500 Body weight 77.47 kg Ryan [employer] Other [facility] Other 06-04-2023 10:00-0500 Diastolic blood pressure 83 mm[Hg] Ryan [employer] Other [facility] Other 06-04-2023 10:00-0500 Respiratory rate 12 /min Ryan [employer] Other [facility] Other 06-04-2023 10:00-0500 Systolic blood pressure 125 mm[Hg] Ryan Ball Other [facility] Other 02-04-2023 11:56-0400 Body height 158.75 cm Ryan Ball Other [facility] Other 02-04-2023 11:56-0400 Body mass index (BMI) [Ratio] 31.13 kg/m2 Ryan Ball Other [facility] Other 02-04-2023 11:56-0400 Body weight 78.47 kg Ryan Ball Other [facility] Other 02-04-2023 11:56-0400 Diastolic blood pressure 74 mm[Hg] Ryan Ball Other [facility] Other 02-04-2023 11:56-0400 Systolic blood pressure 115 mm[Hg] Ryan Ball Other [facility] Other 01-07-2023 15:52-0400 Body height 158.75 cm Ryan Ball Other [facility] Other 01-07-2023 15:52-0400 Body mass index (BMI) [Ratio] 31.49 kg/m2 Ryan Ball Other [facility] Other 01-07-2023 15:52-0400 Body weight 79.38 kg Ryan Ball Other [facility] Other 01-07-2023 15:52-0400 Diastolic blood pressure 82 mm[Hg] Ryan Ball Other [facility] Other 01-07-2023 15:52-0400 Systolic blood pressure 118 mm[Hg] Ryan Ball Other [facility] Other 10-27-2022 13:22-0400 Body height 158.75 cm Ryan Ball Other [facility] Other 10-23-2022 10:00-0400 Body height 158.75 cm Ryan Ball Other [facility] Other 10-23-2022 10:00-0400 Body mass index (BMI) [Ratio] 31.78 kg/m2 Ryan Ball Other [facility] Other 10-23-2022 10:00-0400 Body weight 80.11 kg Ryan Ball Other [facility] Other 10-23-2022 10:00-0400 Diastolic blood pressure 78 mm[Hg] Ryan Ball Other [facility] Other 10-23-2022 10:00-0400 Respiratory rate 12 /min Ryan Ball Other [facility] Other 10-23-2022 10:00-0400 Systolic blood pressure 126 mm[Hg] Ryan Ball Other [facility] Other 10-14-2021 14:45-0400 Body height 158.75 cm Santana Olexa Other [facility] Other 10-14-2021 14:45-0400 Body mass index (BMI) [Ratio] 30.77 kg/m2 Santana Olexa Other [facility] Other 10-14-2021 14:45-0400 Body weight 77.57 kg Santana Olexa Other [facility] Other Encounters Encounter Date Encounter Type Care Provider Facility Start: 06-07-2023 End: 06-08-2023 ambulatory Lon Neumann MD Facility:[facility] Start: 06-04-2023 End: 06-04-2023 ambulatory Ryan Jin Other [facility] Other Start: 06-04-2023 Office outpatient vi sit 15 minutes Ryan Jin [facility] Start: 02-05-2023 End: 02-05-2023 Emergency department patient visit Ryan Jin Facility:[facility] Start: 02-04-2023 End: 02-04-2023 ambulatory Ryan Jin Other [facility] Other Start: 02-04-2023 Telephone encounter Ryan BONE [facility] Start: 01-07-2023 End: 01-07-2023 ambulatory Ryan Jin Other [facility] Other Start: 01-07-2023 Telephone encounter Ryan BONE [facility] Start: 10-29-2022 Encounter for genera l adult medical examination without abnormal findings DR RYAN JIN [facility] Start: 10-27-2022 End: 10-27-2022 ambulatory NARENDRANATH LAKSHMIPATHY . [facility] Other Start: 10-27-2022 Telephone encounter Ryan BONE [facility] Start: 10-23-2022 End: 10-24-2022 Encounter for general adult medical examination without abnormal findings Ryan Jin [facility] Start: 10-23-2022 Periodic preventive med est patient 40-64yrs Ryan Jin [facility] Start: 10-23-2022 End: 10-24-[address] RYAN JIN [facility] [employer] Other Start: 10-13-2022 End: 10-14-2022 ambulatory NARENDRANATH LAKSHMIPATHY . Facility:[facility] Start: 09-22-[address] DYLAN CUMMINGS . Faci lity:[facility] Start: 06-30-2022 End: 07-01-[address] RYAN JIN Facility:[facility] Start: 06-22-2022 Adult health examination Ryan Jin Other [facility] Other Start: 06-04-2022 End: 06-05-[address] RYAN JIN Facility:[facility] Start: 05-24-2022 End: 05-24-2022 ambulatory GALE CARUSO Facility:[facility] Start: 05-20-2022 End: 05-20-2022 ambulatory GALE CARUSO Facility:[facility] Start: 05-14-2022 Gynecological examination steve Jin Other [facility] Other Start: 05-13-2022 End: 05-13-[address] JAON HUGGINS Facility:[facility] Start: 04-22-2022 Encounter for preprocedural laboratory examination DR DYLAN CUMMINGS . [facility] Start: 04-21-2022 End: 04-21-[address] RYAN JIN Facility:[facility] Start: 04-17-2022 End: 04-18-[address] DYLAN CUMMINGS . Facility:[facility] Start: 04-17-2022 End: 04-18-2022 Encounter for preprocedural laboratory examination DR DYLAN CUMMINGS . Facility:[facility] Start: 04-14-2022 End: 04-14-[address] RYAN JIN Facility:[facility] Start: 04-10-2022 End: 04-11-[address] DYLAN CUMMINGS . Facility:[facility] Start: 04-07-2022 End: 04-07-2022 ambulatory [facility] Start: 03-26-2022 End: 03-27-[address] RYAN JIN Facility:[facility] Start: 03-05-2022 End: 03-06-[address] RYAN JIN Facility:[facility] Start: 02-11-2022 End: 02-12-2022 ambulatory ROMMEL SALINAS . Facility:[facility] Start: 12-17-2021 End: 01-30-[address] RYAN JIN Facility:[facility] Start: 12-15-2021 End: 12-16-[address] RYAN JIN Facility:[facility] Start: 11-25-2021 Postop follow up vis it related to original px Santana Olexa [facility] Start: 11-25-2021 Telephone encounter Santana Olexa [facility] Start: 11-25-2021 End: 11-26-[address] MARIBEL Coffman [place] [facility] Other Start: 11-06-2021 End: 11-07-[address] DYLAN CUMMINGS . Facility:[facility] Start: 11-04-2021 End: 11-05-2021 ambulatory SANTANA PANDEY Facility:[facility] Start: 10-28-2021 End: 10-28-2021 ambulatory Santana Mojicaxa Other [facility] Other Start: 10-28-2021 Postop follow up vis it related to original px Santana Olexa [facility] [place] Start: 10-28-2021 Telephone encounter Santana Pandey [facility] Start: 10-14-2021 End: 10-14-2021 ambulatory Santana Mojicaxa Other [facility] Other Start: 10-14-2021 FQ visit new patient Santana Pandey [facility] [place] Procedures Date Procedure Procedure Detail Performing Clinician Start: 03-27-2014 General examination of patient Ryan Jin Other Screening for malign ant neoplasm of breast Ryan Jin Other Screening for malign ant neoplasm of colon Ryan Jin Other Plan of Treatment Date Care Activity Detail Author Start: 01-14-2023 ambulatory Ambulatory Facility:[facility] Immunizations Immunization Date Immunization Notes Care Provider [place] 04-25-2021 COVID-19 Sterling blanco Other [facility] Other 08-01-2020 COVID-19 Sterling blanco Other [facility] Other 07-03-2020 COVID-19 Sterling blanco Other [facility] Other Payers Date Payer Category [id number] 2022 Unknown 2019 Unknown [id number] 2. [id number] 1970 Unknown [id number] 2.16.84 0.1.662732.3.579.2.593 1970 Unknown [id number] 2.16.84 0.1.611848.3.579.2.593 1970 Unknown [id number] 2.16.84 0.1.333711.3.579.2.593 1970 Unknown [id number] 2.16.84 0.1.846674.3.579.2.593 1970 Unknown [id number] 2.16.84 0.1.526028.3.579.2.593 1970 Unknown [id number] 2.16.84 0.1.587206.3.579.2.593 1970 Unknown [id number] 2.16.84 0.1.854629.3.579.2.593 1970 Unknown [id number] 2.16.84 0.1.410233.3.579.2.593 1970 Unknown [id number] 2.16.84 0.1.600792.3.579.2.593 1970 Unknown [id number] 2.16.84 0.1.086977.3.579.2.593 1970 Unknown [id number] 2.16.84 0.1.194765.3.579.2.593 1970 Unknown [id number] 2.16.84 0.1.078009.3.579.2.593 1970 Unknown [id number] 2.16.84 0.1.425496.3.579.2.593 1970 Unknown [id number] 2.16.84 0.1.825508.3.579.2.593 1970 Unknown [id number] 2.16.84 0.1.934632.3.579.2.593 1970 Unknown [id number] 2.16.84 0.1.288635.3.579.2.593 1970 Unknown [id number] 2.16.84 0.1.208118.3.579.2.593 1970 Unknown [id number] 2.16.84 0.1.546019.3.579.2.593 1970 Unknown [id number] 2.16.84 0.1.528487.3.579.2.593 1970 Unknown [id number] 2.16.84 0.1.926949.3.579.2.593 1970 Unknown [id number] 2.16.84 0.1.447580.3.579.2.593 1970 Unknown [id number] 2.16.84 0.1.874083.3.579.2.593 1970 Unknown [id number] 2.16.84 0.1.640001.3.579.2.593 1970 Unknown [id number] 2.16. 840.1.319363.3.579.2.196 Unknown [id number] 2.16.8 40.1.898149.3.579.2.531 Social History Date Type Detail Facility Sex Assigned At [facility] Other Clinical Notes 10-14-2021 to 06-04-2023 Note Date & Type Note Facility 06-04-2023 Evaluation note Encounter Date Diagnosis Assessment Notes Jun, Palpitation (ICD-10 - R00.2) Avoid stimulants, hydrate and exercise Begin BB to suppress symptoms. Monitor BP and HR Jun, Elevated BP without diagnosis of hypertension (ICD-10 - R03.0) Likely secondary to stress. Monitor for now and treat anxiety Jun, NORI (generalized anxiety disorder) (ICD-10 - F41.1) Instructed to develop consistency w/ diet, exercise and bedtime. Intructed to avoid stimulants. Recommend beginning SSRI Ativan as needed for ruminating thoughts. Avoid use of alcohol, Tramadol, Tizanidine w/ the Ativan Jun, Insomnia due to other mental disorder (ICD-10 - F51.05) Ativan for ruminating thoughts and sleepless nights. Once treatment for anxiety has become established, likely will not require continued treatment for insomnia Jun, Mental disorder, not otherwise specified (ICD-10 - F99) [facility] Other 08-03-2023 Evaluation note* Encounter Date Diagnosis Assessment Notes Treatment Notes Treatment Clinical Notes Feb, Other obesity due to excess calories (ICD-10 - E66.09) [facility] Other 07-06-2023 Evaluation note* Encounter Date Diagnosis Assessment Notes Treatment Notes Treatment Clinical Notes Jan, Other obesity due to excess calories (ICD-10 - E66.09) Jan, Body mass index [BMI] 31.0-31.9, adult (ICD-10 - Z68.31) [facility] Other 04-25-2023 Evaluation note* Encounter Date Diagnosis Assessment Notes Treatment Notes Treatment Clinical Notes Oct, Obesity (BMI 30-39.9) (ICD-10 - E66.9) [facility] Other 04-21-2023 Evaluation note* Encounter Date Diagnosis Assessment Notes Treatment Notes Treatment Clinical Notes Oct, Wellness examination (ICD-10 - Z00.00) Healthy diet and exercise. Reviewed age-appropriate preventive testing recommended. Oct, Essential (primary) hypertension (ICD-10 - I10) This patient is instructed to consume a healthy, low-fat, low-salt diet. They are also encouraged to continue exercise to achieve/maintain a normal BMI. Oct, IFG (impaired fasting glucose) (ICD-10 - R73.01) Healthy diet, exercise and weight loss Oct, Lumbar spondylosis (ICD-10 - M47.816) The patient is instructed to avoid bending, twisting or lifting. They are to use intermittent heat and ice as needed. They may schedule a massage or gentle manipulation. They may safely use Tylenol as needed. Oct, Left hamstring injury, subsequent encounter (ICD-10 - S76.302D) Heat/ice and stretching. Refer to PT and massage to incorporate stretching and exercise [facility] Other 04-11-2023 NoteCONSULTATION CONSULTATION DATE: 10/13/2022 TO: Ryan Jin D.O. HISTORY: Patient returns today complaining of 5-7/10 pain in her left buttock area, described as a sharp, burning pain, increased with activity such as light touch, standing and walking as well. She feels most comfortable in the semi-recumbent position. She denies any change in bowel and bladder habits or new sensorimotor changes in the lower extremities. EXAM: Her exam is notable for patient having no clinical radiculopathy or myelopathy involving the lower extremities. Patient did have dysesthesia and hyperesthesia overlying the distribution of the lateral cutaneous branch of the iliohypogastric nerve on the left side. She also had significant myofascial spasm of the left gluteus medius. IMPRESSION: Patient with chronic pain secondary to myofascial dysfunction of the left gluteus medius and neuritis of the lateral cutaneous branch of the iliohypogastric nerve, also on the left side. RECOMMENDATIONS: I have recommended we continue with her use of baclofen 10 mg pills at h.s. and nabumetone 500 mg pills q.a.m. and tramadol 50 mg b.i.d. She reports these medicines do improve her quality of life, level of functioning and sleep pattern. Her TIFFANIE is 16. I have recommended that she consider physical therapy, and follow up with our office via telephone in one month's time to update us on her response to physical therapy. If she has no improvement in terms of her myofascial dysfunction of the gluteus medius, and she continues to demonstrate significant neurogenic signs and symptoms, I would recommend proceeding with a diagnostic left sided injection of her lateral cutaneous branch of the iliohypogastric nerve under fluoroscopic guidance. As part of providing excellent, safe, comprehensive care, the following was completed at our patient's visit: 1. A medication reconciliation and review to ensure accurate knowledge of current/active medications, including asking our patients to inform us about any [id number] medications or herbal remedies/nutritional supplements/alternative remedies. 2. A review to specifically ensure our patients have had annual screening for: elevated body mass index (BMI, see intake chart for exact total), tobacco use, screening for depression, and screening for unhealthy alcohol use. When screening is concerning, patients are provided with education and the specific recommendation to discuss the concerning health issue and treatment options with their primary care provider.[facility] [id number] Note CONSULTATION CONSULTATION DATE: 06/04/2022 HISTORY OF PRESENT ILLNESS: This is a 51-year-old female returning to the clinic status post bilateral RFAs of L2, L3 and L4, L5 completed on 04/21/2022. Patient states overall she is better and was afforded 80% relief. She no longer has numbness that goes down her left buttock to her leg. Occasionally, she feels a little twinge in her back, which she feels is muscular in nature. She does use her inversion table and does daily which are very helpful to her. Prolonged standing, walking, physical activity slightly aggravates her pain. At rest, her pain is 1/10, and with activity it increase to 2-3/10. Medications include tramadol 50 mg q.h.s., nabumetone 500 mg daily and tizanidine 4 mg q.h.s. Patient feels that the tizanidine is not helpful to her. Patient's REVIEW OF SYSTEMS / PAST MEDICAL HISTORY / ALLERGIES and IMAGES have been reviewed and they are noted on the chart. PHYSICAL EXAM: VITAL SIGNS: Blood pressure 128/73, heart rate is 74. She is 5'3 and weighs 77.2 kg. GENERAL APPEARANCE: Pleasant, appropriate, no acute distress. FOCUSED EXAM - BACK: Range of motion is functional in lateral rotation and flexion/extension. Paravertebral muscles are non-spasmodic. Minor trigger points noted to left lower lumbar area around L5. No spinal axial pain can be reproduced indicative of successful RFA. MUSCULOSKELETAL: Motor is intact bilateral lower extremities, 5/5. Ambulates steadily without assistive device. NEUROLOGICALLY: Radicular sensory is intact. Negative polyneuropathy. DIAGNOSIS: Lumbar spondylosis, lumbar degenerative disc disease, lumbar radiculitis and chronic lower back pain. PLAN: We will refill her tramadol 50 mg q.h.s. We will change her muscle relaxer to baclofen 10 mg q.h.s. and discontinue the tizanidine. She is to continue with her stretches and use of inversion table. We will see her in the clinic in three months' time, unless otherwise indicated.[facility] 04-07-2022 NoteOrthopaedic Surgery Subjective 04/07/22 Jeanne Anna is a 51 y.o. year old RHD female who presents as a new patient referral for evaluation of right wrist pain. Patient reports she sustained a fall at a restaurant on 10/11/2021 when she slipped on some water. At the time the patient sustained a right extra-articular distal radius fracture. This was in appropriate alignment and was treated nonoperatively by Dr. Pandey. During the course of treatment, the patient subsequently did have some loss of alignment, with loss of radial height, inclination, and volar tilt. Patient still did heal uneventfully. Since that time, the patient has continued to have some residual wrist pain is worsened with activity. 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 She reports she did greatly improve her motion with physical therapy in the past. Denies any tingling or weakness. She does report some occasional numbness throughout the hand. Patient does report history of previous carpal tunnel release in the past performed by outside surgeon. Patient History No past surgical history on file. No past medical history on file. Objective General: There is no height or weight on file to calculate BMI. No acute distress, comfortable Respiratory: Unlabored breathing with normal rate, no cough Cardiovascular: Warm well perfused extremities Psych: Appropriate mood behavior Focused exam of the right wrist: Skin clean, dry, intact. Very subtle radial and dorsal deformity of the wrist. Patient able to make complete fist without difficulty. Neurovascular intact distally. Wrist range of motion from 45 degrees of extension to 50 degrees of flexion. Very minimal tenderness to palpation about the distal radius. Imaging: Previous x-rays of the right wrist (disc) from October, November, and December 2021 reviewed and demonstrate initial extra-articular distal radius fracture with appropriate alignment, followed by subsequent loss of radial height to ulnar neutral variance, slight loss of radial clinician, loss of volar tilt to about 15 degrees of dorsal angulation with good interval healing. Assessment/Plan Jeanne Anna is a 51 y.o. year old RHD female with history of right extra-articular distal radius fracture treated nonoperatively with subsequent loss of alignment and malunion -Discussed clinical and imaging findings with patient today -Discussed that the patient's current motion is quite functional. We discussed that oftentimes it can take up to 1 year after injury for maximal improvement. We did discuss the possibility of malunion correction with osteotomy and say that this would likely improve her pain, though it may not significantly improve her motion, patient was understanding of this At this time, we will continue with-conservative treatment and the patient will follow-up with us as needed closer to the 1 year ary if she has not made satisfactory improvement discussed operative intervention Germán Cedeño MD Orthopaedic Surgery, PGY-5 By using the attestations below, the signing clinician agrees that I have read and verify that the documentation has been personally reviewed by me and ensure that the documentation accurately reflects the encounter. GC: I personally saw this patient on the day of the encounter, performed the vanegas portion(s) of the service and participated in the management and confirm the resident's documentation. Please note there may be an additional personal documentation from me.[facility]09-22-2022 Note CONSULTATION CONSULTATION DATE: 03/26/2022 HISTORY OF PRESENT ILLNESS: This is a very pleasant, 51-year-old female returning to the clinic for approximately a 5-6 week follow up. The patient did call for this appointment, as she is feeling her lower back is flaring up. Her last procedure with our clinic was bilateral SI joint injections on 10/21/2021. She has no SI or gluteal complaints at this time. She did have lower lumbar radiofrequency ablations that were completed in September of 2020. She has received approximately 17 months relief from that radiofrequency procedure and, as of four weeks ago, she was slowly feeling her pain return. She is having some radiating pain down the posterior and lateral aspect of her left leg, just above the knee. Flexion and extension are painful for her. 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 She has been very active this summer with golf and gardening and activities such as that are more aggravating at this time. She does not use heat or ice. Home medications include nabumetone 500 mg daily, tramadol 50 mg q.h.s. and tizanidine 4 mg q.h.s. The patient feels she has been using her tramadol more consistently within the past month because of her increased pain. She has noted some left leg weakness for the past month when the pain began to return. She denies any falls or accidents. Patient's REVIEW OF SYSTEMS / PAST MEDICAL HISTORY / ALLERGIES and IMAGES have been reviewed and they are noted on the chart. PHYSICAL EXAM: VITAL SIGNS: Blood pressure 117/76, heart rate is 76. Temperature is 96.8. She is 5'3 , weighs 75.7 kg. GENERAL IMPRESSION: Pleasant, appropriate, no acute distress. FOCUSED EXAM - BACK: Range of motion is guarded in lateral rotation and in flexion/extension. Paravertebral muscles are non-spasmodic. Addy's point is non-tender bilaterally. Reproduction of spinal axial pain and pain symptomatology upon direct compression along the lower posterior aspect of her lumbar facets. Fullness is palpated along the facets, indicative of facet arthropathy, lumbar spondylosis at L2, L3 and L4, L5 bilaterally, left greater than right. MUSCULOSKELETAL: Motor is intact, 5/5 on the right, 4/5 on the left. Noted quadriceps weakness to the left. Patient ambulates with a steady gait. Does use assistive device. NEUROLOGICAL: Radicular sensory is intact. Negative polyneuropathy. Patellar reflexes are +2 bilaterally. DIAGNOSIS: Lumbar spondylosis, lumbar degenerative disc disease, lumbar neuritis, spinal axial lower back pain. PLAN: We will authorize to repeat radiofrequency ablation starting on the left, subsequently move to the right of L2, L3 and L4, L5. A refill for tramadol 50 mg daily and nabumetone 500 mg daily will be sent to her pharmacy. Patient is compliant with the multivitamin and magnesium and was encouraged to do so. Patient agrees with the plan of care, would like to move forward, and she will [facility]09-01-2022 NotePROCEDURE: XR HIP LT 2 3V W PELVIS HISTORY: Pain of left hip joint ; hamstring tear COMPARISON: None. FINDINGS: BONES:No fracture, acute abnormality, or significant arthropathy. SOFT TISSUES:No visible soft tissue swelling. EFFUSION:None visible. OTHER: Negative. IMPRESSION: 1. Normal appearance of left hip joint. Electronically authenticated by: BYRON LEE Date: 2022-03-05 13:30[facility] [id number] NoteCONSULTATION CONSULTATION DATE: 02/11/2022 This is a 51-year-old female who returns to the clinic for a 3-month follow-up for chronic lower back pain. She was last seen on 11/06/2021 which at that time she felt her back pain was well-controlled. She reported 0 pain. Her current medications include nabumetone 500 mg q. day, tizanidine 4 mg p.r.n. and Tramadol 50 mg b.i.d., p.r.n. Activities that aggravate her back pain are sitting, walking, pushing, pulling and prolonged sitting, housework and bending. The patient did stage two months ago she pulled her left hamstring and has followed up with her PCP regarding this. She currently does not use heat or heat rubs to her back or her hamstring area. Her last interventional procedure was in October of this year which was bilateral SI joint injection, which she states is so effective. REVIEW OF SYSTEMS, PAST MEDICAL HISTORY, ALLERGIES AND IMAGES: Have been reviewed and noted in the chart. PHYSICAL EXAM: VITAL SIGNS: Blood pressure 122/78, heart rate is 62 . Height is 5'3 , weighs 76.7 kg. GENERAL APPEARANCE: Pleasant, appropriate and in no acute distress. BACK: Range of motion is intact, lateral rotation and flexion/extension. Mild reproduction of spinoaxial pain noted to compression along the facet of the L4, L5 and L5, S1 with fullness palpated as well. This is concurrent with ill facet arthropathy, lumbar spondylosis to the right. Paravertebral muscles are non-spasmodic. Addy's point is nontender bilaterally. Jhonatan's is negative. MUSCULOSKELETAL: Motor is intact, 4 out of 5 bilaterally with slight weakness to her hamstring to the left. The patient walks with steady gait. NEUROLOGICAL: Radicular sensory is intact. Negative polyneuropathy. Bilateral patellar and Achilles reflexes are +2. DIAGNOSIS: Lumbar degenerative disk disease, lumbar spondylosis, chronic lower back pain and left hamstring strain. PLAN: We will refill her Tramadol 50 mg but decrease the dose to q. day p.r.n. Education was given regarding the use of a heat rub, heat source to both her lower back and her hamstrings. Stretches were demonstrated to help loosen up her paravertebral muscles. Nutrition and vitamin importance was discussed. The patient is to follow-up with us in three months' time unless otherwise indicated. The patient agrees to the plan of care.[facility] 11-25-2021 NotePROCEDURE: XR WRIST RT 2V COMPARISON: 11/04/2021 HISTORY: Closed fracture of distal end of radius FINDINGS: BONES:Acute complex intra-articular impacted fracture of the distal radius with increase in sclerosis consistent with healing. Sclerosis across the base of the ulnar styloid. No dislocation. SOFT TISSUES:Negative. No visible soft tissue swelling. EFFUSION:None visible. OTHER: Negative. IMPRESSION: Stable healing distal intra-articular radius fracture Suspected healing ulnar styloid process fracture Electronically authenticated by: MARIBEL DEJESUS Date: 2021-11-25 14:18[facility]05-24-2022 Evaluation note* Encounter Date Diagnosis Assessment Notes Treatment Notes Treatment Clinical Notes November, Other closed fracture of distal end of right radius with routine healing, subsequent encounter (ICD-10 - S52.591D) [employer] Other 05-24-2022 Evaluation note* Encounter Date Diagnosis Assessment Notes Treatment Notes Treatment Clinical Notes November, Other closed fracture of distal end of right radius with routine healing, subsequent encounter (ICD-10 - S52.591D) Cast removed today, patient tolerated well. Instructed on gentle motion exercises of the hand and wrist. Placed in cock up wrist splint to be worn for activities, remove for range of motion. Instructed on use of heat prior to motion exercises. May take tylenol/motrin as needed for pain. Instructed on massage to help desensitize. Advised she may always have some slight differences between the appearance of the wrists. Call with questions/concerns. [employer] Other 05-05-2022 NoteCONSULTATION CONSULTATION DATE: 11/07/2021 This is a 51-year-old female who returns to the clinic status post bilateral SI joint injection, completed on 10/21/2021. The patient has had 100% relief and it is ongoing. Her pain level today is zero. The patient three weeks ago fell and suffered a fracture to her right forearm and is in a cast. The patient's overall activity has been decreased because of her fractured right arm and she feels she has not been able to really test the efficacy of her injection and she has not been at work. Overall, with daily activity, walking, bending, cooking and laundry, her pain remains 0. Current medications include nabumetone 500 mg q. day, multivitamins, Tizanidine 4mg p.r.n. and Tramadol 15 mg b.i.d. The patient has been taking the Tramadol p.r.n. for her right arm fracture, not for lumbar or sacroiliac pain. She denies any new radicular pattern or vasomotor changes. REVIEW OF SYSTEMS, PAST MEDICAL HISTORY, ALLERGIES AND IMAGES: Have been reviewed and noted in the chart. PHYSICAL EXAM: VITAL SIGNS: Blood pressure, heart rate is, temperature is. Height is, weighs. GENERAL APPEARANCE: Pleasant and appropriate, no acute distress. FOCUSED EXAM: BACK: Range of motion is within functional limits in lateral rotation and flexion/extension. Addy's point is nontender bilaterally. Jhonatan's, compression and thigh thrust tests are negative. MUSCULOSKELETAL: Motor is intact, 4 out of 5 bilaterally. The patient walks with a steady gait. Does not use assistive device. NEUROLOGICAL: Radicular sensory is intact. Negative polyneuropathy. DIAGNOSIS: Bilateral sacroiliitis. PLAN: Overall the patient is doing quite well. She was encouraged to continue with her current medication and vitamin regimen. Nutritional importance was discussed with her as well. Exercise was encouraged. The patient will be followed in the clinic in 3 months' time unless otherwise indicated. The patient agrees with plan of care. [facility] Signed and Approved by: ROMMEL SALINAS . 11/12/2021 14:04:00[facility]04-26-2022 Evaluation note* Encounter Date Diagnosis Assessment Notes Treatment Notes Treatment Clinical Notes Oct, Other closed fracture of distal end of right radius with routine healing, subsequent encounter (ICD-10 - S52.591D) Radiographs reviewed with patient today. Discussed with patient there is slight shortening with the distal radius. Discussed with patient surgical vs non surgical treatment options. Patient would like to continue with non surgical treatment at this time. Instructed patient to continue to keep cast clean and dry. Discussed with patient we will have her obtain an xray of her wrist in 1 week. Discussed with patient we will call her after her xray to discuss treatment. Patient given off work note and xray order for next week, telephone encounter opened . Extensive discussion about this situation. There definitely has been some collapse since initial casting. I still think fracture alignment is within reasonable position. We discussed that we could consider open reduction and fixation. We discussed that this definitely would be traumatic and require another 6 weeks of healing. Patient states that she definitely has been working with the arm to aggressively at work despite our initial recommendations. She states she would like to take some time off work to allow this to settle down. I would like to see x-rays next week. [employer] Other 04-26-2022 Evaluation note* Encounter Date Diagnosis Assessment Notes Treatment Notes Treatment Clinical Notes Oct, Other closed fracture of distal end of right radius with routine healing, subsequent encounter (ICD-10 - S52.591D) [employer] Other 04-12-2022 Evaluation note* Encounter Date Diagnosis Assessment Notes Treatment Notes Treatment Clinical Notes Oct, Other closed fracture of distal end of right radius, initial encounter (ICD-10 - S52.591A) Radiographs reviewed with patient and company. The patient has suffered a minimally displaced radius fracture. Based on this fracture pattern, we will monitor closely to ensure no further displacement of fracture occurs that may require surgery. This fracture is stable and we will treat this non-operatively. We will treat this in a short arm fiberglass cast. The cast was applied without difficulty. The patient appears to be tolerating this well. We discussed that this injury can take at least six weeks to have early healing will need gentle motion and strength exercise for months after healing. We discussed the need to limit any weight bearing to arm or strenuous activity such as lifting. We discussed the need to keep the cast clean and dry. We discussed that this injury can lead to [facility] pain and wrist stiffness. Patient to be off work from now through 10/19/21. May return 10/20 with the restriction of no using the right hand for work more than 2 lbs. May use the left hand unrestricted. May work up to 6 hours per day. Oct, Other Patient will ob tain xrays at [facility] in 1 week, and call our office to inform done. If fracture has displaced, may consider surgical intervention. If fracture appears to still be stable, we will recheck in [place] office the following week. [employer] Other History general Narrative - Reported* Type Description Date Medical History DDD Surgical History CTS Surgical History hysterectomy Surgical History appendectomy Surgical History oophorectomy Surgical History laparoscopy Surgical History wisdom teeth Surgical History colonoscopy Surgical History back ablasions Hospitalization History see above [employer] Other History general Narrative - Reported* Type Description Date Medical History DDD Medical History COVID Medical History IFG (impaired fasting glucose) Medical History Left hip pain Medical History Carbuncle Medical History History of healed fragility frac ture Medical History Menopause Medical History Posterior tibial tendinitis of r ight lower extremity Medical History NORI (generalized anxiety disorde r) Medical History Other instability, right foot Medical History Herpes simplex type 2 infection Medical History Contracture, right ankle Medical History Lumbar spondylosis Medical History Family history of dementia Medical History Essential (primary) hypertension Surgical History CTS Surgical History hysterectomy Surgical History appendectomy Surgical History oophorectomy Surgical History laparoscopy Surgical History wisdom teeth Surgical History colonoscopy Surgical History back ablasions Hospitalization History see above [employer] Other Summary Purpose Family History No Family History Records FoundNo Family History Records FoundNo Family History Records FoundNo Family History Records FoundNo Family History Records FoundNo Family History Records FoundNo Family History Records Found Advance Directives No Advanced Directives Records FoundNo Advanced Directives Records FoundNo Advanced Directives Records FoundNo Advanced Directives Records FoundNo Advanced Directives Records FoundNo Advanced Directives Records FoundNo Advanced Directives Records Found Additional Source Comments INFORMATION SOURCE (unrecogn ized section and content) DATE CREATED AUTHOR 01/11/2019 [facility] DATE CREATED AUTHOR AUTHOR'S ORGANIZ ATION 03/25/2020 [facility] DATE CREATED AUTHOR AUTHOR'S ORGANIZ ATION 01/09/2021 [facility] DATE CREATED AUTHOR AUTHOR'S ORGANIZ ATION 04/10/2022 [facility] DATE CREATED AUTHOR AUTHOR'S ORGANIZ ATION 10/30/2022 [facility] [place] [facility] DATE CREATED AUTHOR AUTHOR'S ORGANIZ ATION 02/17/2023 [facility] DATE CREATED AUTHOR AUTHOR'S ORGANIZ ATION 06/18/2023 [facility] REASON FOR VISIT (unrecogniz ed section and content) Right Wrist InjuryRecheck Ri ght Wristxray orderxraysRecheck Right WristWellnessLab ResultsNo Informationweight checkRe-Send AdipexBP RUNNING HIGHER FOR RECORDS PERTAINING TO PATIENTS WHO ARE OR HAVE BEEN ENROLLED IN A CHEMICAL DEPENDENCY/SUBSTANCEABUSE PROGRAM, SOME INFORMATION MAY BE OMITTED. This clinical summary was aggregated from multiple sources. Caution should be exercised in using it in the provision of clinical care. This summary normalizes information from multiple sources, and as a consequence, information in this document may materially change the coding, format and clinical context of patient data. In addition, data may be omitted in some cases. CLINICAL DECISIONS SHOULD BE BASED ON THE PRIMARY CLINICAL RECORDS. [facility] [employer] [facility]. provides no warranty or guarantee of the accuracy or completeness of information in this document.
--- NOTE | 2023-07-01 15:06 | P.CN_ITS ---
Consult Note: HPI Data of Consult Requesting Physician: Nancy Miller NP Primary Care Provider: Ryan Jin DO Consult Narrative Reason for consult: f/u Narrative: Jeanne Thornton a pleasant 52 year old female presents for evaluation and management of chronic low back pain. Today rating pain 0/10. Reporting 90% improvement in bilateral low back pain as a result of bilateral facet medial branch thermal RFA at L4-5 L5-S1. Patient has not had to utilize tramadol. Is following with PCP for anxiety and recently prescribed ativan. cc:: CC: Nancy Miller NP Review of Systems ROS Status of ROS 10 or more systems reviewed and unremark able except as noted in history and below Musculoskeletal Reports: back pain PFSH PFSH Social History Smoking status: Never smoker Meds Home Medications and Allergies Home Medications Medication Instructions Recorded Confirmed Type coenzyme Q10 75 mg capsule (Ultra 200 mg PO DAILY 04/14/23 06/07/23 History CoQ10) tizanidine 4 mg capsule 4 mg PO BID PRN muscle spasticity 04/14/23 06/07/23 History tramadol 50 mg tablet 50 mg PO DAILY PRN pain 04/14/23 06/07/23 History diclofenac sodium 100 mg 100 mg PO DAILY 05/13/23 06/07/23 History tablet,extended release 24 hr Allergies Allergy/AdvReac Type Severity Reaction Status Date / Time venlafaxine [From Effexor] Allergy Severe COUGH Verified 04/14/23 08:26 ketoprofen Allergy Mild Rash Verified 04/14/23 08:26 lisinopril Allergy Unknown Verified 04/14/23 08:26 Exam Constitutional Documenting provider has reviewed patient's vital signs: yes Common normals: no apparent distress, oriented x3, healthy appearing, alert and well nourished General appearance: cooperative HENMT Common normals: normocephalic, hearing grossly normal bilaterally and moist oral mucous membranes Head and scalp: normocephalic Eye Common normals: PERRL Pupil: PERRL Neck & C-Spine Common normals: full ROM General: normal visual inspection Chest Common normals: inspection of chest normal Respiratory Common normals: normal respiratory effort, no retractions and no use of accessory muscles Back & Pelvis Common normals: straight leg raise negative bilaterally Lumbar spine/lower back: straight leg raise negative bilaterally Sacroiliac joints: SI joints normal Other: negative facet loading no radiculopathy Extremity Common normals: normal to inspection and full ROM Neuro Common normals: oriented x3, CN's II-XII intact bilaterally, moves all extremities, no focal motor deficits, no sensory deficits noted, deep tendon reflexes 2+ bilaterally and gait normal Sensorium/orientation: alert Motor exam: strength 5/5 throughout and no movement abnormalities noted Psych Common normals: mental status grossly normal, thought process normal, cooperative, affect normal, speech normal and activity/motor behavior normal Speech: normal speech Thought process: normal thought process Assessment and Plan Assessment and Plan (1) Chronic prescription opiate use: Assessment and Plan: stop tramadol An FDA review has found that combined use of opioid medicines with benzodiazepines has resulted in serious side effects, including slowed or difficult breathing and deaths. The 2021 CDC guidelines recommend avoiding co- prescribing opioids and benzodiazepines. We discussed that opioids will not be prescribed while the patient remains on benzodiazepines.? (2) Lumbar spondylosis: (3) Muscle spasm: Plan patient recently started on ativan PRN, we discussed she is not to utilize tramadol and ativan together and our policy is we do not prescribe opioids to patients who are on benzodiazepines. Patient has not utilized tramadol since RFA. we will discuss this in the future continue diclofenac 100mg daily as needed and tizanidine 4mg BID PRN f/u 3 months
== END 2023-07-01 14:42 | disposition home or self-care (01) ==
LOC: PM 14:55
PROVIDERS: PCP Internal Medicine; Visit Provider Nurse Practitioner
DX: Z79.891 Long term (current) use of opiate analgesic (principal); M47.816 Spondylosis without myelopathy or radiculopathy, lumbar region; M62.838 Other muscle spasm
CPT/HCPCS: G0463

== ENCOUNTER 2023-07-21 15:58 | Outpatient (OUT) | payer BC, SELFPAY ==
--- OUTSIDE RECORDS SUMMARY | 2023-07-21 16:01 | XMS_ITS | CCD ---
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 Wash Room Name Role Phone Dannie, Santana Unavailable PARSIH GALDAMEZ Attending Unavailable Davin, Ryan Unavailable GALE CARUSO Consulting Unavailable SHADY, GALE Admitting Unavailable SHADY, GALE Attending Unavailable DAVIN, DR AMBROSE Primary Care Unavailable LAKSHMIPATHY ., ZACHERY Attending Gabriela vailable LAKSHMIPATHY ., NARTALYA Admitting Gabriela vailable [...] Admitting Unavailable CUMMINGS ., DR DYLAN Gandhi Admitting [...] Facility (11 sources) Ketoprofen Drug Allergy rash [facility] [employer] Other (12 sources) Lisinopril; Translations: [LISINOPRIL] Drug Allergy cough [facility] Repository (11 sources) methylPREDNISolone Drug Allergy elevated BP [facility] [employer] Other (1 source) carvedilol; Translations: [CARVEDILOL] Drug Allergy [facility] Repository (1 source) Amino Acids Drug Allergy [facility] Repository (1 source) Ketoprofen Drug Allergy 016 [facility] Repository (1 source) venlafaxine Drug Allergy [facility] Repository (3 sources) venlafaxine Drug Allergy Unknown [facility] [facility] Other (2 sources) patient allergy list reviewed by nurse or physicia Propensity to adverse reactions 019 Comment:Done c-crowd Other (2 sources) Allergies Reconciled Propensity to adverse reactions Unknown [facility]crow[facility] Other Medications Current Medications Medication Drug Class(es) [...] Basophils (Bld) [#/Vol] 0.0 10*3/uL Normal 0.0-0.2 [facility] Comment on above: Result Comment: PERF ORMED BY: [place] [address] PATHOLOGIST CIGARETTE MAKING MACHINE CATCHER ADRIENNE CONTEH M.D. Performed By: #### C BC, CMP #### [address] Basophils/100 WBC (Bld) 0.3 % Normal . [facility] Comment on above: Performed By: #### C BC, CMP #### [address] Eosinophils (Bld) [#/Vol] 0.0 10*3/uL Normal 0.0-0.45 [facility] Comment on above: Performed By: #### C BC, CMP #### [address] Eosinophils/100 WBC (Bld) 0.1 % Normal . [facility] Comment on above: Performed By: #### C BC, CMP #### [address] Erythrocyte distribution width (RBC) [Ratio] 12.6 % Normal 11.9-15.3 [facility] Comment on above: Performed By: #### C BC, CMP #### [address] Hematocrit (Bld) [Volume fraction] 38.0 % Normal 34.0-46.4 [facility] Comment on above: Performed By: #### C BC, CMP #### [address] Hemoglobin (Bld) [Mass/Vol] 12.9 g/dL Normal 11.8-15.4 [facility] Comment on above: Performed By: #### C BC, CMP #### [place] [address] [place] Lymphocytes (Bld) [#/Vol] 1.5 10*3/uL Normal 1.00-4.8 [facility] Comment on above: Performed By: #### C BC, CMP #### [address] Lymphocytes/100 WBC (Bld) 13.9 % Normal . [facility] Comment on above: Performed By: #### C BC, CMP #### [address] MCH (RBC) [Entitic mass] 30.7 pg Normal 24.7-34.3 [facility] Comment on above: Performed By: #### C RICHARD, CMP #### [address] MCV (RBC) [Entitic vol] 90.1 fL Normal 80-100 [facility] Comment on above: Performed By: #### C RICHARD, CMP #### [address] Mean Corpuscular HGB Conc 34.1 g/dL Normal 32.0-35.0 [facility] Comment on above: Performed By: #### C RICHARD, CMP #### [address] Monocytes (Bld) [#/Vol] 0.3 10*3/uL Normal 0.0-0.8 [facility] Comment on above: Performed By: #### C BC, CMP #### [address] Monocytes/100 WBC (Bld) 14.63 % Normal 0.00-20.00 [facility] Comment on above: Performed By: #### C BC, CMP #### [address] Monocytes/100 WBC (Bld) 2.8 % Normal . [facility] Comment on above: Performed By: #### C BC, CMP #### [address] Neutrophils (Bld) [#/Vol] 9.0 10*3/uL High 1.8-7.7 [facility] Comment on above: Performed By: #### C BC, CMP #### [address] Neutrophils/100 WBC (Bld) 82.9 % Normal . [facility] Comment on above: Performed By: #### C BC, CMP #### [facility] [address] NRBC% 0.1 /100{WBC} Normal 0-0.5 [facility] Comment on above: Performed By: #### C BC, CMP #### [facility] [address] Platelet mean volume (Bld) [Entitic vol] 8.1 fL Normal 6.3-10.7 [facility] Comment on above: Performed By: #### C BC, CMP #### [address] Platelets (Bld) [#/Vol] 197 10*3/uL Normal 150-450 [facility] Comment on above: Performed By: #### C BC, CMP #### [address] RBC (Bld) [#/Vol] 4.22 10*6/uL Normal 3.60-5.00 [facility] Comment on above: Performed By: #### C BC, CMP #### [address] WBC (Bld) [#/Vol] 10.9 10*3/uL Normal 3.8-11.6 [facility] Comment on above: Performed By: #### C BC, CMP #### [address] Comprehensive Metabolic Pane mayito 02-05-2023 Albumin [Mass/Vol] 4.6 g/dL Normal 3.5-5.7 [facility] Comment on above: Performed By: #### C BC, CMP #### [address] [place] [address] [place] Albumin/Globulin [Mass ratio] 1.4 {ratio} Normal [facility] Comment on above: Performed By: #### C BC, CMP #### [address] ALP [Catalytic activity/Vol] 40 U/L Normal 34-104 [facility] Comment on above: Performed By: #### C BC, CMP #### [address] ALT [Catalytic activity/Vol] 12 U/L Normal 7-52 [facility] Comment on above: Performed By: #### C BC, CMP #### [address] Anion gap [Moles/Vol] 14.1 mmol/L Normal 6.0-15.0 [facility] Comment on above: Performed By: #### C BC, CMP #### [address] AST [Catalytic activity/Vol] 14 U/L Normal 13-39 [facility] Comment on above: Performed By: #### C BC, CMP #### [address] Bilirubin [Mass/Vol] 0.3 mg/dL Normal 0.3-1.0 [facility] Comment on above: Performed By: #### C BC, CMP #### [address] Calcium [Mass/Vol] 8.9 mg/dL Normal 8.6-10.3 [facility] Comment on above: Performed By: #### C BC, CMP #### [place] [address] [place] Chloride [Moles/Vol] 105 mmol/L Normal 98-107 [facility] Comment on above: Performed By: #### C BC, CMP #### [address] CO2 [Moles/Vol] 23.7 mmol/L Normal 21.0-31.0 [facility] Comment on above: Performed By: #### C BC, CMP #### [facility] [address] Creatinine [Mass/Vol] 0.78 mg/dL Normal 0.60-1.20 [facility] Comment on above: Performed By: #### C BC, CMP #### [facility] [address] [place] [address] [place] Creatinine Clr Calc Pharmacy 79.00 Normal [facility] Comment on above: Result Comment: PERF ORMED BY: [facility] [address] [place] [address] PATHOLOGIST CIGARETTE MAKING MACHINE CATCHER ADRIENNE CONTEH M.D. Performed By: #### C BC, CMP #### [address] GFR/1.73 sq M.predicted MDRD (S/P/Bld) [Vol rate/Area] mL/min/{1.73_m2} Normal [facility] Comment on above: Performed By: #### C BC, CMP #### [facility] [address] Globulin (S) [Mass/Vol] 3.2 g/dL Normal [facility] Comment on above: Performed By: #### C BC, CMP #### [address] Glucose [Mass/Vol] 121 mg/dL High 70-100 [facility] Comment on above: Result Comment: [place] Glucose Reference Range is dependent on time and content of last meal. Glucose of more than 200 mg/dL in a nonstressed, ambulatory subject supports the diagnosis of Diabetes Mellitus. ADA recommended reference range Performed By: #### C BC, CMP #### [facility] [address] Potassium [Moles/Vol] 3.8 mmol/L Normal 3.5-5.1 [facility] Comment on above: Performed By: #### C BC, CMP #### [facility] [address] Protein [Mass/Vol] 7.8 g/dL Normal 6.4-8.9 [facility] Comment on above: Performed By: #### C BC, CMP #### [address] Sodium [Moles/Vol] 139 mmol/L Normal 136-145 [facility] Comment on above: Performed By: #### C BC, CMP #### [address] Urea nitrogen [Mass/Vol] 14 mg/dL Normal 7-25 [facility] Comment on above: Performed By: #### C BC, CMP #### [place] [address] [place] Dipstick and Microscopicon 0 02-05-2023 Appearance (U) Clear Normal Clear [facility] Comment on above: Order Comment: Name Collection Type:: Clean-Voided Midstream Performed By: #### A DDONUAPLUS #### [place] [address] [place] Bacteria,Urine None Seen Normal None Seen [facility] Comment on above: Order Comment: Name Collection Type:: Clean-Voided Midstream Performed By: #### A DDONUAPLUS #### [place] [address] [place] Bilirubin,Urine Negative Normal Negative [facility] Comment on above: Order Comment: Name Collection Type:: Clean-Voided Midstream Performed By: #### A DDONUAPLUS #### [place] [address] [place] Color (U) Yellow Normal Yellow [facility] Comment on above: Order Comment: Name Collection Type:: Clean-Voided Midstream Performed By: #### A DDONUAPLUS #### [place] [address] [place] Glucose Ql (U) Normal Normal Normal [facility] Comment on above: Order Comment: Name Collection Type:: Clean-Voided Midstream Performed By: #### A DDONUAPLUS #### [place] [address] [place] Hyaline Casts,Urine 0-8 Normal 0-8 [facility] Comment on above: Order Comment: Name Collection Type:: Clean-Voided Midstream Result Comment: PERF ORMED BY: [place] [address] PATHOLOGIST CIGARETTE MAKING MACHINE CATCHER ADRIENNE CONTEH M.D. Performed By: #### A DDONUAPLUS #### [facility] [address] [place] [address] [place] Ketones Ql (U) Trace High Negative [facility] Comment on above: Order Comment: Name Collection Type:: Clean-Voided Midstream Performed By: #### A DDONUAPLUS #### [address] Leukocyte esterase Test strip Ql (U) Negative Normal Negative [facility] Comment on above: Order Comment: Name Collection Type:: Clean-Voided Midstream Performed By: #### A DDONUAPLUS #### [place] [address] [place] Nitrite,Urine Negative Normal Negative [facility] Comment on above: Order Comment: Name Collection Type:: Clean-Voided Midstream Performed By: #### A DDONUAPLUS #### [place] [address] [place] Occult Blood,Urine Negative Normal Negative [facility] Comment on above: Order Comment: Name Collection Type:: Clean-Voided Midstream Result Comment: PERF ORMED BY: [place] [address] PATHOLOGIST CIGARETTE MAKING MACHINE CATCHER ADRIENNE CONTEH M.D. Performed By: #### A DDONUAPLUS #### [facility] [address] [place] [address] [place] pH (U) 5.5 [pH] Normal 5.0-9.0 [facility] Comment on above: Order Comment: Name Collection Type:: Clean-Voided Midstream Performed By: #### A DDONUAPLUS #### [place] [address] [place] Protein,Urine Trace High Negative [facility] Comment on above: Order Comment: Name Collection Type:: Clean-Voided Midstream Performed By: #### A DDONUAPLUS #### [address] RBC,Urine 1-2 Normal 0-4 [facility] Comment on above: Order Comment: Name Collection Type:: Clean-Voided Midstream Performed By: #### A DDONUAPLUS #### [address] Specificy Wayan,Urine 1.026 Normal 1.001-1.030 [facility] Comment on above: Order Comment: Name Collection Type:: Clean-Voided Midstream Performed By: #### A DDONUAPLUS #### [address] Squamous Epithelial Cell,Urine 3-4 High 0-2 [facility] Comment on above: Order Comment: Name Collection Type:: Clean-Voided Midstream Performed By: #### A DDONUAPLUS #### [address] Urobilinogen,Urine Normal Normal Normal [facility] Comment on above: Order Comment: Name Collection Type:: Clean-Voided Midstream Performed By: #### A DDONUAPLUS #### [place] [address] [place] WBC,Urine 3-4 Normal 0-4 [facility] Comment on above: Order Comment: Name Collection Type:: Clean-Voided Midstream Performed By: #### A DDONUAPLUS #### [address] CBC AUTO DIFFon 10-23-2022 BASO # 0.1 103/ul Normal 0.0-0.1 [facility] Comment on above: Performed By: #### C VDAGA #### [facility] [address] [address] [address] Karlo Beltre Basophils/100 WBC (Bld) 0.9 % Normal 0.2-2.0 [facility] Comment on above: Performed By: #### C VDAGA #### [facility] [address] [place] [address] Dr. Karlo Beltre EO # 0.1 103/ul Normal 0.0-0.7 [facility] Comment on above: Performed By: #### C VDAGA #### [facility] [address] [place] [address] Dr. Karlo Beltre Eosinophils/100 WBC (Bld) 2.1 % Normal 0.9-7.0 [facility] Comment on above: Performed By: #### C VDAGA #### [facility] [address] [place] [address] Dr. Karlo Beltre Erythrocyte distribution width (RBC) [Ratio] 12.3 % Normal 11.0-15.0 [facility] Comment on above: Performed By: #### C VDAGA #### [facility] [address] [place] [address] Dr. Karlo Beltre Hematocrit (Bld) [Volume fraction] 38.3 % Normal 36.0-48.0 [facility] Comment on above: Performed By: #### C VDAGA #### [facility] [address] [place] [address] Dr. Karlo Beltre Hemoglobin (Bld) [Mass/Vol] 12.9 g/dL Normal 12.0-16.0 [facility] Comment on above: Performed By: #### C VDAGA #### [facility] [address] [place] [address] Dr. Karlo Beltre IG # 0.01 10e3/ul Normal 0.00-0.03 [facility] Comment on above: Performed By: #### C VDAGA #### [facility] [address] [place] [address] Dr. Karlo Beltre IG % 0.2 % Normal 0.0-0.5 [facility] Comment on above: Performed By: #### C VDAGA #### [facility] [address] [place] [address] Dr. Karlo Beltre LYMPH # 2.5 103/ul Normal 1.2-3.8 [facility] Comment on above: Performed By: #### C VDAGA #### [facility] [address] [address] [address] Karlo Beltre Lymphocytes/100 WBC (Bld) 43.8 % Normal 20.5-60.0 [facility] Comment on above: Performed By: #### C VDAGA #### [facility] [address] [place] [address] Dr. Karlo Beltre MANUAL DIFF REQ NO Normal [facility] Comment on above: Performed By: #### C VDAGA #### [facility] [address] [place] [address] Dr. Karlo Belrte MCH (RBC) [Entitic mass] 30.4 pg Normal 26.7-34.0 [facility] Comment on above: Performed By: #### C VDAGA #### [facility] [address] [place] [address] Dr. Karlo Beltre MCHC (RBC) [Mass/Vol] 33.7 g/dL Normal 29.9-35.2 [facility] Comment on above: Performed By: #### C VDAGA #### [facility] [address] [place] [address] Dr. Karlo Beltre MCV (RBC) [Entitic vol] 90.1 fL Normal 81.0-99.0 [facility] Comment on above: Performed By: #### C VDAGA #### [facility] [address] [place] [address] Dr. Karlo Beltre MONO # 0.4 103/ul Normal 0.3-0.8 [facility] Comment on above: Performed By: #### C VDAGA #### [facility] [address] [place] [address] Dr. Karlo Beltre Monocytes/100 WBC (Bld) 6.7 % Normal 1.7-12.0 [facility] Comment on above: Performed By: #### C VDAGA #### [facility] [address] [place] [address] Dr. Karlo Beltre NEUT # 2.6 103/ul Normal 1.4-6.5 [facility] Comment on above: Performed By: #### C VDAGA #### [facility] [address] [address] [address] Karlo Beltre Neutrophils/100 WBC (Bld) 46.3 % Normal 43.0-75.0 [facility] Comment on above: Performed By: #### C VDAGA #### [facility] [address] [address] [address] Karlo Beltre Platelet mean volume (Bld) [Entitic vol] 9.6 fL Normal 9.5-13.5 [facility] Comment on above: Performed By: #### C VDAGA #### [facility] [address] [address] [address] aKrlo Beltre PLT 190 103/ul Normal 150-450 [facility] Comment on above: Performed By: #### C VDAGA #### [facility] [address] [place] [address] Dr. Karlo Beltre RBC 4.25 106/ul Normal 4.20-5.40 [facility] Comment on above: Performed By: #### C VDAGA #### [facility] [address] [place] [address] Dr. Karlo Beltre WBC 5.7 103/ul Normal 4.0-11.0 [facility] Comment on above: Performed By: #### C VDAGA #### [facility] [address] [place] [address] Dr. Karlo Beltre GLYCOHEMOGLOBIN A1Con 2022 ADA RECOMMENDATION SEE BELOW Normal [facility] Comment on above: Result Comment: ADA RECOMMENDED LIMIT 4.0 - 6.0 ADA THERAPEUTIC TARGET < 7.0 ACTION SUGGESTED > 7.0 Performed By: #### A 1C #### [facility] [address] [place] [address] Dr. Karlo Beltre Glucose [Mass/Vol] 114 mg/dL Normal [facility] Comment on above: Performed By: #### A 1C #### [facility] [address] [place] [address] Dr. Karlo Beltre HbA1c (Bld) [Mass fraction] 5.6 % Normal 4.5-6.2 [facility] Comment on above: Performed By: #### A 1C #### [facility] [address] [address] [address] Karlo Beltre LIPID PROFILEon 10-23-2022 CHOL-HDL RATIO NORM SEE BELOW Normal [facility] Comment on above: Result Comment: 3.3 - 4.4 LOW RISK 4.4 - 7.1 AVERAGE RISK 7.1 - 11.0 MODERATE RISK >11.0 HIGH RISK Performed By: #### L IPID, TSH, CMP #### [facility] [address] [address] [address] Karlo Beltre Cholesterol [Mass/Vol] 249 mg/dL Critically high <=200 [facility] Comment on above: Performed By: #### L IPID, TSH, CMP #### [facility] [address] [address] [address] Karlo Beltre Cholesterol in HDL [Mass/Vol] 82 mg/dL Critically high 40-60 [facility] Comment on above: Performed By: #### L IPID, TSH, CMP #### [facility] [address] [address] [address] Karlo Beltre Cholesterol in LDL [Mass/Vol] 152.2 mg/dL Normal [facility] Comment on above: Performed By: #### L IPID, TSH, CMP #### [facility] [address] [address] [address] Karlo Beltre Cholesterol.total/Ch olesterol in HDL [Mass ratio] 3.0 {ratio} Normal [facility] Comment on above: Performed By: #### L IPID, TSH, CMP #### [facility] [address] [address] [address] Karlo Beltre HDL NORMAL > or = 60 mg/dl - LOW CARDIOVASCULAR RISK <40 mg/dl - HIGH CARDIOVASCULAR RISK Normal [facility] Comment on above: Performed By: #### L IPID, TSH, CMP #### [facility] [address] [address] [address] Karlo Beltre LDL CALC NORMAL SEE BELOW Normal [facility] Comment on above: Result Comment: <100 mg/dl OPTIMAL 100 - 129 mg/dl NEAR OR ABOVE OPTIMAL 130 - 159 mg/dl BORDERLINE HIGH 160 - 189 mg/dl HIGH >190 mg/dl VERY HIGH Performed By: #### L IPID, TSH, CMP #### [facility] [address] [place] [address] Dr. Karlo Beltre Triglyceride [Mass/Vol] 74 mg/dL Normal <=150 [facility] Comment on above: Performed By: #### L IPID, TSH, CMP #### [facility] [address] [address] [address] Karlo Beltre VLDL CALC 14.8 mg/dL Normal [facility] Comment on above: Performed By: #### L IPID, TSH, CMP #### [facility] [address] [place] [address] Dr. Karlo Beltre PROF 14(COMP METB)on 023 Albumin [Mass/Vol] 3.9 g/dL Normal 3.4-5.0 [facility] Comment on above: Performed By: #### L IPID, TSH, CMP #### [facility] [address] [place] [address] Dr. Karlo Beltre Albumin/Globulin [Mass ratio] 1.1 {ratio} Normal [facility] Comment on above: Performed By: #### L IPID, TSH, CMP #### [facility] [address] [place] [address] Dr. Karlo Beltre ALP [Catalytic activity/Vol] 49 U/L Normal 46-116 [facility] Comment on above: Performed By: #### L IPID, TSH, CMP #### [facility] [address] [place] [address] Dr. Karlo Beltre ALT [Catalytic activity/Vol] 23 U/L Normal 14-59 [facility] Comment on above: Performed By: #### L IPID, TSH, CMP #### [facility] [address] [place] [address] Dr. Karlo Beltre Anion gap [Moles/Vol] 13.5 mmol/L Normal [facility] Comment on above: Performed By: #### L IPID, TSH, CMP #### [facility] [address] [place] [address] Dr. Karlo Beltre AST [Catalytic activity/Vol] 15 U/L Normal 15-37 [facility] Comment on above: Performed By: #### L IPID, TSH, CMP #### [facility] [address] [place] [address] Dr. Karlo Beltre Bilirubin [Mass/Vol] 0.4 mg/dL Normal 0.2-1.0 [facility] Comment on above: Performed By: #### L IPID, TSH, CMP #### [facility] [address] [place] [address] Dr. Karlo Beltre Calcium [Mass/Vol] 9.2 mg/dL Normal 8.5-10.1 [facility] Comment on above: Performed By: #### L IPID, TSH, CMP #### [facility] [address] [place] [address] Dr. Karlo Beltre Chloride [Moles/Vol] 107 mmol/L Normal 98-107 [facility] Comment on above: Performed By: #### L IPID, TSH, CMP #### [facility] [address] [place] [address] Dr. Karlo Beltre CO2 [Moles/Vol] 26.6 mmol/L Normal 21.0-32.0 [facility] Comment on above: Performed By: #### L IPID, TSH, CMP #### [facility] [address] [place] [address] Dr. Karlo Beltre Creatinine [Mass/Vol] 0.82 mg/dL Normal 0.55-1.02 [facility] Comment on above: Performed By: #### L IPID, TSH, CMP #### [facility] [address] [place] [address] Dr. Karlo Beltre EGFR-AF PUERTO RICAN >60 Normal >=60 [facility] Comment on above: Performed By: #### L IPID, TSH, CMP #### [facility] [address] [place] [address] Dr. Karlo Beltre EGFR-NON AF PUERTO RICAN >60 Normal >=60 [facility] Comment on above: Performed By: #### L IPID, TSH, CMP #### [facility] [address] [address] [address] Karlo Beltre Globulin (S) [Mass/Vol] 3.7 g/dL Normal [facility] Comment on above: Performed By: #### L IPID, TSH, CMP #### [facility] [address] [address] [address] Karlo Beltre Glucose [Mass/Vol] 95 mg/dL Normal 74-106 [facility] Comment on above: Performed By: #### L IPID, TSH, CMP #### [facility] [address] [place] [address] Dr. Karlo Beltre Potassium [Moles/Vol] 4.1 mmol/L Normal 3.5-5.1 [facility] Comment on above: Performed By: #### L IPID, TSH, CMP #### [facility] [address] [place] [address] Dr. Karlo Beltre Protein [Mass/Vol] 7.6 g/dL Normal 6.4-8.2 [facility] Comment on above: Performed By: #### L IPID, TSH, CMP #### [facility] [address] [place] [address] Dr. Karlo Beltre Sodium [Moles/Vol] 143 mmol/L Normal 136-145 [facility] Comment on above: Performed By: #### L IPID, TSH, CMP #### [facility] [address] [place] [address] Dr. Karlo Beltre Urea nitrogen [Mass/Vol] 17.0 mg/dL Normal 7.0-18.0 [facility] Comment on above: Performed By: #### L IPID, TSH, CMP #### [facility] [address] [place] [address] Dr. Karlo Beltre Urea nitrogen/Creatinine [Mass ratio] 20.7 mg/mg Normal [facility] Comment on above: Performed By: #### L IPID, TSH, CMP #### [facility] [address] [place] [address] Dr. Karlo Beltre TSHon 10-23-2022 TSH 1.095 uIU/mL Normal 0.358-3.740 [facility] Comment on above: Performed By: #### L IPID, TSH, CMP #### [facility] [address] [place] [address] Dr. Karlo Beltre MG MAMM SCREEN 3D CJ CADon 06-30-2022 MG MAMM SCREEN 3D CJ CAD Patient: JEANNE ANNA Exam Date: 06/30/2022 : 1970 Gender:F Ordering : DR RYAN JIN D.O. Admission #: [id number] Family : Order #: [id number] CLICK HERE TO VIEW EXAM RADIOLOGY REPORT [...] lung cancer at age 45. LOCATION: [facility] BREAST COMPOSITION: Scattered areas fibroglandular density. FINDINGS: [...] MD on 07/02/2022 at 08:04 Normal [facility] ASYMPTOMATIC COVID-19 ANTIGE Non 05-24-2022 EUA Statement SEE BELOW Normal [facility] Comment on above: Result Comment: [...] sooner. Performed By: #### C VDAGA #### [facility] [address] [place] [address] Dr. Karlo Beltre SARS-CoV-2 (COVID-19) RNA YUNG+probe Ql (Unsp spec) Negative Normal NEGATIVE [facility] Comment on above: Result Comment: Nega tive results are presumptive. They do not preclude infection and should not be used as the sole basis for treatment decisions. Additional confirmatory testing by a molecular method should be considered. Performed By: #### C VDAGA #### [facility] [address] [place] [address] Dr. Karlo Beltre Covid-19 PCR (CVDTB)on 05-05 SARS-CoV-2 (COVID-19) RNA YUNG+probe Ql (Unsp spec) Detected Critically abnormal NOT DETECTED [facility] Comment on above: Result Comment: This test is not yet approved or cleared by the [place] FDA. When there are no FDA-approved or cleared tests available, and other criteria are met, FDA can make tests available under an emergency access mechanism called an Emergency Use Authorization (EUA). The EUA for this test is supported by the Heel Nailing Machine Operator of Health and Human Service's declaration that [...] used). Performed By: #### C VDAGA #### [facility] [address] [place] [address] Dr. Karlo Beltre HERPES SIMPLEX VIRUS 1/2 DNA PCRon 05-19-2022 HSV-1 DNA Negative Normal Negative [facility] Comment on above: Performed By: #### H SVPCR #### [facility] [address], [place] [address] Dr. Karlo Beltre HSV-2 DNA Positive Abnormal Negative [facility] Comment on above: Result Comment: This test was developed and its performance characteristics determined by [employer]. It has not been cleared or approved by the U.S. Food and Drug Administration. The FDA has determined that such clearance or approval is not necessary. This test is used for clinical purposes. It should not be regarded as investigational or research. Performed By: #### H SVPCR #### [facility] [address], [place] [address] Dr. 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 Typing was confirmed by monoclonal antibody microscopic immunofluorescence. Performed By: #### C VDAGA #### [facility] [address] [place] [address] Dr. Karlo Beltre Covid-19 PCR (CVDTB)on 04-04 SARS-CoV-2 (COVID-19) RNA YUNG+probe Ql (Unsp spec) Not detected Normal NOT DETECTED [facility] Comment on above: Result Comment: This test is not yet approved or cleared by the [place] FDA. When there are no FDA-approved or cleared tests available, and other criteria are met, FDA can make tests available under an emergency access mechanism called an Emergency Use Authorization (EUA). The EUA for this test is supported by the Heel Nailing Machine Operator of Health and Human Service's (HHS's) declaration [...] SARS-CoV-2. Performed By: #### C DWIGHTAGA #### [facility] [address], [place] [address] Dr. Karlo Beltre [facility] SARS-CoV-2 (COVID-19) RNA YUNG+probe Ql (Unsp spec) Not detected Normal NOT DETECTED [facility] Comment on above: Result Comment: When diagnostic [...] for this test is supported by the Heel Nailing Machine Operator of Health and Human Service's declaration that [...] used). Performed By: #### C DWIGHTAGA #### [facility] [address], [place] [address] Dr. Karlo Beltre Office Visiton 04-07-2022 Follow-up visit [id number] Jeanne Anna 1970 F Date Provider Department Center 04/07/2022 [facility] No family history on file Level of Service:82691 [place] OFFICE/OUTPATIENT [facility] 30-44 MINUTES (GC) Reason for Visit and Comments: Pain [136] Normal [facility] XR WRIST RT 2Von 12-15-2021 XR WRIST [...] MICHOACANO CARRILLO Date: 2021-12-15 21:12 Normal [facility] CBC AUTO DIFFon 11-25-2021 BASO # 0.1 103/ul Normal 0.0-0.1 [facility] Comment on above: Performed By: #### C VDAGA #### [facility] [address] [address] [address] Karlo Beltre Basophils/100 WBC (Bld) 0.8 % Normal 0.2-2.0 [facility] Comment on above: Performed By: #### C VDAGA #### [facility] [address] [place] [address] Dr. Karlo Beltre EO # 0.1 103/ul Normal 0.0-0.7 [facility] Comment on above: Performed By: #### C VDAGA #### [facility] [address] [address] [address] Karlo Beltre Eosinophils/100 WBC (Bld) 1.8 % Normal 0.9-7.0 [facility] Comment on above: Performed By: #### C VDAGA #### [facility] [address] [place] [address] Dr. Karlo Beltre Erythrocyte distribution width (RBC) [Ratio] 12.7 % Normal 11.0-15.0 [facility] Comment on above: Performed By: #### C VDAGA #### [facility] [address] [place] [address] Dr. Karlo Beltre Hematocrit (Bld) [Volume fraction] 38.9 % Normal 36.0-48.0 [facility] Comment on above: Performed By: #### C VDAGA #### [facility] [address] [place] [address] Dr. Karlo Beltre Hemoglobin (Bld) [Mass/Vol] 12.6 g/dL Normal 12.0-16.0 [facility] Comment on above: Performed By: #### C VDAGA #### [facility] [address] [place] [address] Dr. Karlo Beltre IG # 0.01 10e3/ul Normal 0.00-0.03 [facility] Comment on above: Performed By: #### C VDAGA #### [facility] [address] [place] [address] Dr. Karlo Beltre IG % 0.2 % Normal 0.0-0.5 [facility] Comment on above: Performed By: #### C VDAGA #### [facility] [address] [place] [address] Dr. Karlo Beltre LYMPH # 2.2 103/ul Normal 1.2-3.8 [facility] Comment on above: Performed By: #### C VDAGA #### [facility] [address] [place] [address] Dr. Karlo Beltre Lymphocytes/100 WBC (Bld) 36.1 % Normal 20.5-60.0 [facility] Comment on above: Performed By: #### C VDAGA #### [facility] [address] [place] [address] Dr. Karlo Beltre MANUAL DIFF REQ NO Normal [facility] Comment on above: Performed By: #### C VDAGA #### [facility] [address] [place] [address] Dr. Karlo Beltre MCH (RBC) [Entitic mass] 30.3 pg Normal 26.7-34.0 [facility] Comment on above: Performed By: #### C VDAGA #### [facility] [address] [place] [address] Dr. Karlo Beltre MCHC (RBC) [Mass/Vol] 32.4 g/dL Normal 29.9-35.2 [facility] Comment on above: Performed By: #### C VDAGA #### [facility] [address] [place] [address] Dr. Karlo Beltre MCV (RBC) [Entitic vol] 93.5 fL Normal 81.0-99.0 [facility] Comment on above: Performed By: #### C VDAGA #### [facility] [address] [address] [address] Karlo Beltre MONO # 0.4 103/ul Normal 0.3-0.8 [facility] Comment on above: Performed By: #### C VDAGA #### [facility] [address] [address] [address] Karlo Beltre Monocytes/100 WBC (Bld) 6.4 % Normal 1.7-12.0 [facility] Comment on above: Performed By: #### C VDAGA #### [facility] [address] [address] [address] Karlo Beltre NEUT # 3.4 103/ul Normal 1.4-6.5 [facility] Comment on above: Performed By: #### C VDAGA #### [facility] [address] [place] [address] Dr. Karlo Beltre Neutrophils/100 WBC (Bld) 54.7 % Normal 43.0-75.0 [facility] Comment on above: Performed By: #### C VDAGA #### [facility] [address] [address] [address] Karlo Beltre Platelet mean volume (Bld) [Entitic vol] 8.9 fL Critically low 9.5-13.5 [facility] Comment on above: Performed By: #### C VDAGA #### [facility] [address] [address] [address] Karlo Beltre PLT 251 103/ul Normal 150-450 [facility] Comment on above: Performed By: #### C VDAGA #### [facility] [address] [address] [address] Karlo Beltre RBC 4.16 106/ul Critically low 4.20-5.40 [facility] Comment on above: Performed By: #### C VDAGA #### [facility] [address] [address] [address] Karlo Beltre WBC 6.1 103/ul Normal 4.0-11.0 [facility] Comment on above: Performed By: #### C VDAGA #### [facility] [address] [address] [address] Karlo Beltre GLYCOHEMOGLOBIN A1Con 2021 ADA RECOMMENDATION SEE BELOW Normal [facility] Comment on above: Result Comment: ADA RECOMMENDED LIMIT 4.0 - 6.0 ADA THERAPEUTIC TARGET < 7.0 ACTION SUGGESTED > 7.0 Performed By: #### A 1C #### [facility] [address] [address] [address] Karlo Beltre Glucose [Mass/Vol] 117 mg/dL Normal [facility] Comment on above: Performed By: #### A 1C #### [facility] [address] [place] [address] Dr. Karlo Beltre HbA1c (Bld) [Mass fraction] 5.7 % Normal 4.5-6.2 [facility] Comment on above: Performed By: #### A 1C #### [facility] [address] [place] [address] Dr. Karlo Beltre LIPID PROFILEon 11-25-2021 CHOL-HDL RATIO NORM SEE BELOW Normal [facility] Comment on above: Result Comment: 3.3 - 4.4 LOW RISK 4.4 - 7.1 AVERAGE RISK 7.1 - 11.0 MODERATE RISK >11.0 HIGH RISK Performed By: #### T NOBLE, LIPID, CMP #### [facility] [address] [place] [address] Dr. Karlo Beltre Cholesterol [Mass/Vol] 229 mg/dL Critically high <=200 [facility] Comment on above: Performed By: #### T NOBLE, LIPID, CMP #### [facility] [address] [place] [address] Dr. Karlo Beltre Cholesterol in HDL [Mass/Vol] 83 mg/dL Critically high 40-60 [facility] Comment on above: Performed By: #### T SH, LIPID, CMP #### [facility] [address] [place] [address] Dr. Karlo Beltre Cholesterol in LDL [Mass/Vol] 132.2 mg/dL Normal [facility] Comment on above: Performed By: #### T SH, LIPID, CMP #### [facility] [address] [address] [address] Karlo Beltre Cholesterol.total/Ch olesterol in HDL [Mass ratio] 2.8 {ratio} Normal [facility] Comment on above: Performed By: #### T NOBLE, LIPID, CMP #### [facility] [address] [address] [address] Karlo Beltre HDL NORMAL > or = 60 mg/dl - LOW CARDIOVASCULAR RISK <40 mg/dl - HIGH CARDIOVASCULAR RISK Normal [facility] Comment on above: Performed By: #### T NOBLE, LIPID, CMP #### [facility] [address] [place] [address] Dr. Karlo Beltre LDL CALC NORMAL SEE BELOW Normal [facility] Comment on above: Result Comment: <100 mg/dl OPTIMAL 100 - 129 mg/dl NEAR OR ABOVE OPTIMAL 130 - 159 mg/dl BORDERLINE HIGH 160 - 189 mg/dl HIGH >190 mg/dl VERY HIGH Performed By: #### T NOBLE, LIPID, CMP #### [facility] [address] [address] [address] Karlo Beltre Triglyceride [Mass/Vol] 69 mg/dL Normal <=150 [facility] Comment on above: Performed By: #### T NOBLE, LIPID, CMP #### [facility] [address] [place] [address] Dr. Karlo Beltre VLDL CALC 13.8 mg/dL Normal [facility] Comment on above: Performed By: #### T NOBLE, LIPID, CMP #### [facility] [address] [place] [address] Dr. Karlo Beltre PROF 14(COMP METB)on 022 Albumin [Mass/Vol] 3.9 g/dL Normal 3.4-5.0 [facility] Comment on above: Performed By: #### T NOBLE, LIPID, CMP #### [facility] [address] [place] [address] Dr. Karlo Beltre Albumin/Globulin [Mass ratio] 1.1 {ratio} Normal [facility] Comment on above: Performed By: #### T NOBLE, LIPID, CMP #### [facility] [address] [place] [address] Dr. Karlo Beltre ALP [Catalytic activity/Vol] 48 U/L Normal 46-116 [facility] Comment on above: Performed By: #### T SH, LIPID, CMP #### [facility] [address] [address] [address] Karlo Beltre ALT [Catalytic activity/Vol] 20 U/L Normal 14-59 [facility] Comment on above: Performed By: #### T SH, LIPID, CMP #### [facility] [address] [address] [address] Karlo Beltre Anion gap [Moles/Vol] 12.2 mmol/L Normal [facility] Comment on above: Performed By: #### T NOBLE, LIPID, CMP #### [facility] [address] [place] [address] Dr. Karlo Beltre AST [Catalytic activity/Vol] 13 U/L Critically low 15-37 [facility] Comment on above: Performed By: #### T NOBLE, LIPID, CMP #### [facility] [address] [place] [address] Dr. Karlo Beltre Bilirubin [Mass/Vol] 0.3 mg/dL Normal 0.2-1.0 [facility] Comment on above: Performed By: #### T NOBLE, LIPID, CMP #### [facility] [address] [place] [address] Dr. Karlo Beltre Calcium [Mass/Vol] 9.0 mg/dL Normal 8.5-10.1 [facility] Comment on above: Performed By: #### T SH, LIPID, CMP #### [facility] [address] [place] [address] Dr. Karlo Beltre Chloride [Moles/Vol] 105 mmol/L Normal 98-107 [facility] Comment on above: Performed By: #### T SH, LIPID, CMP #### [facility] [address] [place] [address] Dr. Karlo Beltre CO2 [Moles/Vol] 28.6 mmol/L Normal 21.0-32.0 [facility] Comment on above: Performed By: #### T SH, LIPID, CMP #### [facility] [address] [address] [address] Karlo Beltre Creatinine [Mass/Vol] 0.77 mg/dL Normal 0.55-1.02 [facility] Comment on above: Performed By: #### T SH, LIPID, CMP #### [facility] [address] [address] [address] Karlo Beltre EGFR-AF PUERTO RICAN >60 Normal >=60 [facility] Comment on above: Performed By: #### T SH, LIPID, CMP #### [facility] [address] [address] [address] Karlo Beltre EGFR-NON AF PUERTO RICAN >60 Normal >=60 [facility] Comment on above: Performed By: #### T SH, LIPID, CMP #### [facility] [address] [address] [address] Karlo Beltre Globulin (S) [Mass/Vol] 3.7 g/dL Normal [facility] Comment on above: Performed By: #### T SH, LIPID, CMP #### [facility] [address] [address] [address] Karlo Beltre Glucose [Mass/Vol] 95 mg/dL Normal 74-106 [facility] Comment on above: Performed By: #### T NOBLE, LIPID, CMP #### [facility] [address] [address] [address] Karlo Beltre Potassium [Moles/Vol] 3.8 mmol/L Normal 3.5-5.1 [facility] Comment on above: Performed By: #### T SH, LIPID, CMP #### [facility] [address] [address] [address] Karlo Beltre Protein [Mass/Vol] 7.6 g/dL Normal 6.4-8.2 [facility] Comment on above: Performed By: #### T SH, LIPID, CMP #### [facility] [address] [address] [address] Karlo Beltre Sodium [Moles/Vol] 142 mmol/L Normal 136-145 [facility] Comment on above: Performed By: #### T SH, LIPID, CMP #### [facility] [address] [place] [address] Dr. Karlo Beltre Urea nitrogen [Mass/Vol] 18.0 mg/dL Normal 7.0-18.0 [facility] Comment on above: Performed By: #### T SH, LIPID, CMP #### [facility] [address] [place] [address] Dr. Karlo Beltre Urea nitrogen/Creatinine [Mass ratio] 23.4 mg/mg Normal [facility] Comment on above: Performed By: #### T SH, LIPID, CMP #### [facility] [address] [place] [address] Dr. Karlo Beltre TSHon 11-25-2021 TSH 0.775 uIU/mL Normal 0.358-3.740 [facility] Comment on above: Performed By: #### T SH, LIPID, CMP #### [facility] [address] [place] [address] Dr. Karlo Beltre TSH RANGE SEE BELOW Normal [facility] Comment on above: Result Comment: <0.3 4 UIU/ml HYPERTHYROID 0.34-5.60 UIU/ml EUTHYROID >5.60 UIU/ml HYPOTHYROID Performed By: #### T SH, LIPID, CMP #### [facility] [address] [place] [address] Dr. Karlo Beltre XR DEXA BONE DENSITYon [...] by: BYRON LEE Date: 2021-11-25 08:53 Normal [facility] XR WRIST RT 2Von 11-04-2021 XR WRIST [...] by: MICHOACANO CARRILLO Date: 2021-11-04 12:54 Normal [facility] Outside Colonoscopyon 2020 Outside Colonoscopy [id number] #1.00CD:127 Normal [facility] Lab Reportson 12-31-2020 Lab Reports [id number] #1.00CD:127 Normal [facility] Consent for Procedure/Surger yon 12-04-2020 Consent for Procedure/Surgery [id number] #1.00CD:127 Normal [facility] [place] [facility] Provider Letter [facility] December 04, 2020 RYAN JIN, [address] [place] [address] Re: JEANNE ANNA Date of : 1970 Thank you for your referral of Jaenne Anna who was seen on consultation on December 03, 2020, for screening colonoscopy. I have enclosed my consultation notes for your review, and I will be happy to follow Jeanne. Sincerely, Patricio Drew MD General Surgery Normal [facility] Ambulatory Clinical Summaryo n 12-03-2020 Ambulatory Clinical Summary {[id number]}CD:[id number] Normal [facility] General Surgery Office/Clini c Noteon 12-03-2020 General Surgery Office/Clinic Note Chief Complaint Consult for Colonoscopy HPI Staff 50 year old female referred by Dr. Jin for Screening Colonoscopy. Previous colonoscopy completed 16 years ago at [facility] by Dr Forte. No family history of [...] Status S (more content not included)... Normal [facility] Comment on above: Result Comment: Elec [...] ? Medicines taken, including vitamins, herbs, eyedrops, xtti-aka-gzkxunq medicines, and creams. ? Use of steroids [...] medicines have worn off. ? Only take qxjh-oce-ugxekut or prescription medicines for pain, discomfort, or [...] Document Reviewed: 01/31/2009 ExitCare? Patient Information ?2013 [employer]. Physical Medicine and Rehabilitation Exercising to Lose [...] week of vig (more content not included)... [facility] Physician Referralon 021 Physician Referral [id number] #1.00CD:[address] [facility] Sherri 09-04-2019 CNPN Telephone (DILLONADFV) JEANNE ANNA ([id number]) 1970 F Date Time Provider Department 09/04/19 MIMI STACY During your visit today, we recorded the following information about you: Vickey Nieto [facility] 09/04/[place] 2:11 PM Signed Received outside medical records from [facility]. Scanned into patient's chart. Mimi Stacy MD [...] Encounter Status:Closed by VICKEY BELL on 03/25/20 [facility] QuantiFERON TB Gold (In Tube ) LCon 01-11-2019 QuantiFERON Criteria LC Comment [facility] Comment on above: Result Comment: The QuantiFERON-TB Gold Plus result is determined by subtracting the Nil value from either TB antigen (Ag) tube. The mitogen tube serves as a control for the test. Performed By: #### 4 [id number] #### [facility] (DEFAULT) [address] [place] [address] QuantiFERON Mitogen Value LC 3.65 IU/mL [facility] Comment on above: Result Comment: Perf ormed At: [facility] [address] [id number] Jerman Villagran PhD Ph:[phone] Performed By: #### 4 [id number], [id number], [id number] #### [facility] (DEFAULT) [address] [place] [address] QuantiFERON Nil Value LC 0.07 IU/mL [facility] Comment on above: Performed By: #### 4 [id number], [id number] #### [facility] (DEFAULT) [address] [place] [address] QuantiFERON TB1 Ag Value LC 0.10 IU/mL [facility] Comment on above: Performed By: #### 4 [id number], [id number] #### [facility] (DEFAULT) [address] [place] [address] QuantiFERON TB2 Ag Value LC 0.09 IU/mL [facility] Comment on above: Performed By: #### 4 [id number], [id number], [id number] #### [facility] (DEFAULT) [address] [place] [address] QuantiFERON-TB Gold Plus LCo n 01-11-2019 QuantiFERON-TB Gold Plus LC Negative Negative [facility] Comment on above: Result Comment: Perf ormed At: [address] [id number] Jerman Villagran PhD Ph:[phone] Performed By: #### 4 [id number], [id number], [id number] #### [facility] (DEFAULT) [address] [place] [address] QuantiFERON Incubation LC Comment [facility] Comment on above: Result Comment: LabC orp received incubated specimen. Performed At: [address] [id number] Jerman Villagran PhD Ph:[phone] Performed By: #### 4 [id number] #### [facility] (DEFAULT) [address] [place] [address] Lab - Toxicology Resultson 0 01-10-2019 Lab - Toxicology Results [id number] Normal [facility] Measles/Mumps/Rubella Immuni ty LCon 01-09-2019 Mumps Abs, IgG LC 42.7 AU/mL Immune >10.9 [facility] Comment on above: Result Comment: Nega tive <9.0 Equivocal 9.0 - 10.9 Positive >10.9 A positive result generally indicates past exposure to Mumps virus or previous vaccination. Performed At: [address] [id number] Jerman Villagran PhD Ph:[phone] Performed By: #### 4 [id number], [id number] #### [facility] (DEFAULT) [address] [place] [address] Rubella Antibodies, IgG LC <0.90 Low Immune >0.99 [facility] Comment on above: Result Comment: Non- immune <0.90 Equivocal 0.90 - 0.99 Immune >0.99 Performed By: #### 4 [id number], [id number] #### [facility] (DEFAULT) [address] [place] [address] Rubeola Ab, IgG, EIA LC <25.0 Low Immune >29.9 [facility] Comment on above: Result Comment: Nega tive <25.0 Equivocal 25.0 - 29.9 Positive >29.9 Presence of antibodies to Rubeola is presumptive evidence of immunity except when acute infection is suspected. Performed By: #### 4 [id number], [id number], [id number] #### [facility] (DEFAULT) [address] [place] [address] 32382 Nicotine Metabolite, Urine L Con 01-09-2019 Cotinine LC Negative [id number] [facility] Comment on above: Result Comment: Perf ormed At: [facility] [address] [place], [place] [id number] Bree Douglas PhD Ph:[phone] Performed By: #### 1 [id number] #### [facility] (DEFAULT) [address] [place] [address] Vital Signs Date Time Vital Sign Value Performing Clinician Facility 06-04-2023 10:00-0500 Body height 158.75 cm [facility] [employer] Other [facility] Other 06-04-2023 10:00-0500 Body mass index (BMI) [Ratio] 30.74 kg/m2 [employer] Other [facility] Other 06-04-2023 10:00-0500 Body weight 77.47 kg [facility] [employer] Other [facility] Other 06-04-2023 10:00-0500 Diastolic blood pressure 83 mm[Hg] [facility] [employer] Other [facility] Other 06-04-2023 10:00-0500 Respiratory rate 12 /min [employer] Other [facility] Other 06-04-2023 10:00-0500 Systolic blood pressure 125 mm[Hg] Ryan Ball Other [facility] Other 02-04-2023 11:56-0400 Body height 158.75 cm Ryan Ball Other [facility] Other 02-04-2023 11:56-0400 Body mass index (BMI) [Ratio] 31.13 kg/m2 Ryan Ball Other [facility] Other 02-04-2023 11:56-0400 Body weight 78.47 kg Ryan Ball Other [facility] Other 02-04-2023 11:56-0400 Diastolic blood pressure 74 mm[Hg] Ryan Ball Other [facility] Other 02-04-2023 11:56-0400 Systolic blood pressure 115 mm[Hg] Ryan Ball Other [facility] Other 01-07-2023 15:52-0400 Body height 158.75 cm Ryan Ball Other [facility] Other 01-07-2023 15:52-0400 Body mass index (BMI) [Ratio] 31.49 kg/m2 Ryan Ball Other [facility] Other 01-07-2023 15:52-0400 Body weight 79.38 kg Ryan Ball Other [facility] Other 01-07-2023 15:52-0400 Diastolic blood pressure 82 mm[Hg] Ryan Ball Other [facility] Other 01-07-2023 15:52-0400 Systolic blood pressure 118 mm[Hg] Ryan Ball Other [facility] Other 10-27-2022 13:22-0400 Body height 158.75 cm Ryan Ball Other [facility] Other 10-23-2022 10:00-0400 Body height 158.75 cm Ryan Ball Other [facility] Other 10-23-2022 10:00-0400 Body mass index (BMI) [Ratio] 31.78 kg/m2 Ryan Ball Other [facility] Other 10-23-2022 10:00-0400 Body weight 80.11 kg Ryan Ball Other [facility] Other 10-23-2022 10:00-0400 Diastolic blood pressure 78 mm[Hg] Ryan Ball Other [facility] Other 10-23-2022 10:00-0400 Respiratory rate 12 /min Ryan Ball Other [facility] Other 10-23-2022 10:00-0400 Systolic blood pressure 126 mm[Hg] Ryan Ball Other [facility] Other 10-14-2021 14:45-0400 Body height 158.75 cm Santana Olexa Other [facility] Other 10-14-2021 14:45-0400 Body mass index (BMI) [Ratio] 30.77 kg/m2 Santana Olexa Other [facility] Other 10-14-2021 14:45-0400 Body weight 77.57 kg Santana Olexa Other [facility] Other Encounters Encounter Date Encounter Type Care Provider Facility Start: 06-07-2023 End: 06-08-2023 ambulatory Lon Neumann MD Facility:[facility] Start: 06-04-2023 End: 06-04-2023 ambulatory Ryan Jin Other [facility] Other Start: 06-04-2023 Office outpatient vi sit 15 minutes Ryan Jin [facility] Start: 02-05-2023 End: 02-05-2023 Emergency department patient visit Ryan Jin Facility:[facility] Start: 02-04-2023 End: 02-04-2023 ambulatory Ryan Jin Other [facility] Other Start: 02-04-2023 Telephone encounter Ryan BONE [facility] Start: 01-07-2023 End: 01-07-2023 ambulatory Ryan Jin Other [facility] Other Start: 01-07-2023 Telephone encounter Ryan BONE [facility] Start: 10-29-2022 Encounter for genera l adult medical examination without abnormal findings DR RYAN JIN [facility] Start: 10-27-2022 End: 10-27-2022 ambulatory NARENDRANATH LAKSHMIPATHY . [facility] Other Start: 10-27-2022 Telephone encounter Ryan BONE [facility] Start: 10-23-2022 End: 10-24-2022 Encounter for general adult medical examination without abnormal findings Ryan Jin [facility] Start: 10-23-2022 Periodic preventive med est patient 40-64yrs Ryan Jin [facility] Start: 10-23-2022 End: 10-24-[address] RYAN JIN [facility] Other Start: 10-13-2022 End: 10-14-2022 ambulatory NARENDRANATH LAKSHMIPATHY . Facility:[facility] Start: 09-22-[address] DYLAN CUMMINGS . Faci lity:[facility] Start: 06-30-2022 End: 07-01-[address] RYAN JIN Facility:[facility] Start: 06-22-2022 Adult health examination Ryan Jin Other [facility] Other Start: 06-04-2022 End: 06-05-[address] RYAN JIN Facility:[facility] Start: 05-24-2022 End: 05-24-2022 ambulatory GALE CARUSO Facility:[facility] Start: 05-20-2022 End: 05-20-2022 ambulatory GALE CARUSO Facility:[facility] Start: 05-14-2022 Gynecological examination steve Jin Other [facility] Other Start: 05-13-2022 End: 05-13-[address] JOAN HUGGINS Facility:[facility] Start: 04-22-2022 Encounter for preprocedural laboratory examination DR DYLAN CUMMINGS . [facility] Start: 04-21-2022 End: 04-21-[address] RYAN JIN Facility:[facility] Start: 04-17-2022 End: 04-18-[address] DYLAN CUMMINGS . Facility:[facility] Start: 04-17-2022 End: 04-18-2022 Encounter for preprocedural laboratory examination DR DYLAN CUMMINGS . Facility:[facility] Start: 04-14-2022 End: 04-14-[address] RYAN JIN Facility:[facility] Start: 04-10-2022 End: 04-11-[address] DYLAN CUMMINGS . Facility:[facility] Start: 04-07-2022 End: 04-07-2022 ambulatory [facility] Start: 03-26-2022 End: 03-27-[address] RYAN JIN Facility:[facility] Start: 03-05-2022 End: 03-06-[address] RYAN JIN Facility:[facility] Start: 02-11-2022 End: 02-12-2022 ambulatory ROMMEL SALINAS . Facility:[facility] Start: 12-17-2021 End: 01-30-[address] RYAN JIN Facility:[facility] Start: 12-15-2021 End: 12-16-[address] RYAN JIN Facility:[facility] Start: 11-25-2021 Postop follow up vis it related to original px Santana Olexa [facility] [place] Start: 11-25-2021 Telephone encounter Santana Olexa [facility] Start: 11-25-2021 End: 11-26-[address] MARIBEL Coffman [place] [facility] Other Start: 11-06-2021 End: 11-07-[address] DYLAN CUMMINGS . Facility:[facility] Start: 11-04-2021 End: 11-05-2021 ambulatory SANTANA PANDEY Facility:[facility] Start: 10-28-2021 End: 10-28-2021 ambulatory Santana Mojicaxa Other [facility] Other Start: 10-28-2021 Postop follow up vis it related to original px Santana Olexa [facility] Start: 10-28-2021 Telephone encounter Santana Pandey [facility] Start: 10-14-2021 End: 10-14-2021 ambulatory Santana Mojicaxa Other [facility] Other Start: 10-14-2021 FQ visit new patient Santana Pandey [facility] [place] Procedures Date Procedure Procedure Detail Performing Clinician [...] [place] 04-25-2021 COVID-19 Sterling blanco Other [facility] Other 08-01-2020 COVID-19 Sterling blanco Other [facility] Other 07-03-2020 COVID-19 Sterling blanco Other [facility] Other Payers Date Payer Category Payer Self-pay [address] [id number] 2022 Unknown 2019 Unknown [id number] 2. [id number] 1970 Unknown [id number] 2.16.84 0.1.870879.3.579.2.593 1970 Unknown [id number] 2.16.84 0.1.106352.3.579.2.593 1969 Unknown [id number] 2.16.84 0.1.638760.3.579.2.593 1969 Unknown [id number] 2.16.84 0.1.798163.3.579.2.593 1969 Unknown [id number] 2.16.84 0.1.310486.3.579.2.593 1969 Unknown [id number] 2.16.84 0.1.253225.3.579.2.593 1969 Unknown [id number] 2.16.84 0.1.736105.3.579.2.593 1969 Unknown [id number] 2.16.84 0.1.713595.3.579.2.593 1969 Unknown [id number] 2.16.84 0.1.808125.3.579.2.593 1969 Unknown [id number] 2.16.84 0.1.390235.3.579.2.593 1969 Unknown [id number] 2.16.84 0.1.448849.3.579.2.593 1969 Unknown [id number] 2.16.84 0.1.609129.3.579.2.593 1969 Unknown [id number] 2.16.84 0.1.632373.3.579.2.593 1969 Unknown [id number] 2.16.84 0.1.402768.3.579.2.593 1969 Unknown [id number] 2.16.84 0.1.760106.3.579.2.593 1969 Unknown [id number] 2.16.84 0.1.212259.3.579.2.593 1969 Unknown [id number] 2.16.84 0.1.931931.3.579.2.593 1969 Unknown [id number] 2.16.84 0.1.779212.3.579.2.593 1969 Unknown [id number] 2.16.84 0.1.159007.3.579.2.593 1969 Unknown [id number] 2.16.84 0.1.692342.3.579.2.593 1969 Unknown [id number] 2.16.84 0.1.557744.3.579.2.593 1969 Unknown [id number] 2.16.84 0.1.585781.3.579.2.593 1969 Unknown [id number] 2.16.84 0.1.290259.3.579.2.593 1969 Unknown [id number] 2.16. 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9) [facility] Other 04-21-2023 Evaluation note* Encounter Date Diagnosis [...] and massage to incorporate stretching and exercise [facility] Other 04-11-2023 NoteCONSULTATION CONSULTATION DATE: 10/13/2022 TO: [...] our patients to inform us about any amgf-hfp-utqfcpa medications or herbal remedies/nutritional supplements/alternative remedies. 2. 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 She [...] may be an additional personal documentation from me.[facility]09-22-2022 Note CONSULTATION CONSULTATION DATE: 03/26/2022 HISTORY OF [...] Flexion and extension are painful for her. 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 [...] like to move forward, and she will [facility]09-01-2022 NotePROCEDURE: XR HIP LT 2 3V W PELVIS HISTORY: Pain of left hip joint ; hamstring tear COMPARISON: None. FINDINGS: BONES:No fracture, acute abnormality, or significant arthropathy. SOFT TISSUES:No visible soft tissue swelling. EFFUSION:None visible. OTHER: Negative. IMPRESSION: 1. Normal appearance of left hip joint. Electronically authenticated by: BYRON LEE Date: 2022-03-05 13:30[id number] NoteCONSULTATION CONSULTATION DATE: 02/11/2022 This is a [...] patient agrees to the plan of care.[facility] 11-25-2021 NotePROCEDURE: XR WRIST RT 2V COMPARISON: [...] Electronically authenticated by: MARIBEL DEJESUS Date: 2021-11-25 14:18[facility]05-24-2022 Evaluation note* Encounter Date Diagnosis Assessment Notes Treatment Notes Treatment Clinical Notes November, Other closed fracture of distal end of right radius with routine healing, subsequent encounter (ICD-10 - S52.591D) [facility] Other 05-24-2022 Evaluation note* Encounter Date Diagnosis [...] appearance of the wrists. Call with questions/concerns. [facility] Other 05-05-2022 NoteCONSULTATION CONSULTATION DATE: 11/07/2021 This [...] The patient agrees with plan of care. [facility] Signed and Approved by: ROMMEL SALINAS . 11/12/2021 14:04:00[facility]04-26-2022 Evaluation note* Encounter Date Diagnosis Assessment Notes [...] would like to see x-rays next week. [facility] Other 04-26-2022 Evaluation note* Encounter Date Diagnosis Assessment Notes Treatment Notes Treatment Clinical Notes Oct, Other closed fracture of distal end of right radius with routine healing, subsequent encounter (ICD-10 - S52.591D) [facility] Other 04-12-2022 Evaluation note* Encounter Date Diagnosis [...] discussed that this injury can lead to custodial pain and wrist stiffness. Patient to be off work from now through 10/19/21. May return 10/20 with the restriction of no using the right hand for work more than 2 lbs. May use the left hand unrestricted. May work up to 6 hours per day. Oct, Other Patient will ob t[facility] at [facility] week, and call our office to inform done. If fracture has displaced, may consider surgical intervention. If fracture appears to still be stable, we will recheck in [place] office the following week. [facility] Other History general Narrative - Reported* Type Description Date Medical History DDD Surgical History CTS Surgical History hysterectomy Surgical History appendectomy Surgical History oophorectomy Surgical History laparoscopy Surgical History wisdom teeth Surgical History colonoscopy Surgical History back ablasions Hospitalization History see above [facility] Other History general Narrative - Reported* Type [...] History back ablasions Hospitalization History see above [facility] Other Summary Purpose Family History No Family [...] DATE CREATED AUTHOR AUTHOR'S ORGANIZ ATION 03/25/2020 [facility] DATE CREATED AUTHOR AUTHOR'S ORGANIZ ATION 01/09/2021 [facility] DATE CREATED AUTHOR AUTHOR'S ORGANIZ ATION 04/10/2022 [facility] DATE CREATED AUTHOR AUTHOR'S ORGANIZ ATION 10/30/2022 [facility] [place] [facility] DATE CREATED AUTHOR AUTHOR'S ORGANIZ ATION 02/17/2023 [facility] DATE CREATED AUTHOR AUTHOR'S ORGANIZ ATION 06/18/2023 [facility] REASON FOR VISIT (unrecogniz ed section [...] BE BASED ON THE PRIMARY CLINICAL RECORDS. [facility] [email or web address] [facility]. provides no warranty or guarantee of the accuracy or completeness of information in this document.
--- NOTE | 2023-07-21 16:25 | MM_ITS ---
Patient Name: CECILIO ANNA MR#: [id number] : 1970 Exam Date: 07/21/2023 Ordering Doctor: DR Ryan Jin D.O. RADIOLOGY REPORT PROCEDURE: MM TOMOSYNTHESIS SCREENING BI COMPARISON: MG MAMM SCREEN 3D CJ CAD, 06/27/2021. MG MAMM SCREEN 3D CJ CAD, 06/30/2022. INDICATIONS: screening Calculator Name NCI Breast Cancer Risk Assessment Tool 5 Year Breast Cancer Risk 0.90% Lifetime Breast Cancer Risk 6.80% Personal Breast Cancer No Personal Ovarian Cancer No Treatments None Family Cancers Aunt-paternal with breast cancer at age 70; Father with lung cancer at age 46. LOCATION: [facility] BREAST COMPOSITION: Scattered areas fibroglandular density. FINDINGS: DIAGNOSTIC CATEGORY 1--NEGATIVE. NO CHANGE FROM COMPARISON ASSESSMENT. RIGHT BREAST: No significant suspicious finding. LEFT BREAST: No significant suspicious finding. Stable focal asymmetry upper outer quadrant RECOMMENDATIONS: ROUTINE MAMMOGRAM AND CLINICAL EVALUATION IN 12 MONTHS. PLEASE NOTE: A NORMAL MAMMOGRAM DOES NOT EXCLUDE THE POSSIBILITY OF BREAST CANCER. A CLINICALLY SUSPICIOUS PALPABLE LUMP SHOULD BE BIOPSIED. Dictated by: Nirmal Grey MD on 07/22/2023 at 08:18 Approved by: Nirmal Grey MD on 07/22/2023 at 08:19
== END 2023-07-21 15:59 | disposition home or self-care (01) ==
LOC: MAMMO 15:59
PROVIDERS: PCP Internal Medicine; Visit Provider Internal Medicine
DX: Z12.31 Encounter for screening mammogram for malignant neoplasm of breast (principal); Z80.3 Family history of malignant neoplasm of breast; Z80.1 Family history of malignant neoplasm of trachea, bronchus and lung
CPT/HCPCS: 77063; 77067

== ENCOUNTER 2024-02-18 08:17 | Outpatient (OUT) | payer BC, SELFPAY ==
--- OUTSIDE RECORDS SUMMARY | 2024-02-18 08:23 | XMS_ITS | CCD ---
Author Organization [facility] Care Team Providers Care Tea Bag Machine Tender Name Role Phone Dannie, Santana Unavailable PARISH GALDAMEZ Attending Unavailable Davin, Ryan Unavailable GALE CARUSO Consulting Unavailable SHADY, GALE Admitting Unavailable GALE CARUSO Attending Unavailable DAVIN, DR DAVIS Primary Care Unavailable LAKSHMIPATHY ., ZACHERY Attending Gabriela vailable LAKSHMIPATHY ., ZACHERY Admitting Gabriela vailable LAKSHMIPATHY ., ZACHERY Consulting Gabriela vailable DAVIN, DR DAVIS Primary Care Unavailable DAVIN, DR DAVIS Primary Care Unavailable CUMMINGS ., DR DYLAN Gandhi Consulting Unavailable CUMMINGS ., DR DYLAN Gandhi Attending Unavailable CUMMINGS ., DR DYLAN Gandhi Admitting Unavailable REYNOLD SCHUMACHER Consulting Unavailable BALL, DR DAVIS Consulting Unavailable DAVIN, DR DAVIS Primary Care Unavailable BALL, DR DAVIS Admitting Unavailable BALL, DR DAVIS Attending Unavailable BALL, DR DAVIS Primary Care Unavailable DAVIN, DR DAVIS Consulting Unavailable DAVIN, DR DAVIS Admitting Unavailable BALL, DR DAVIS Attending Unavailable ZIEBER, DR BYRON Austin Consulting Unavailable DAVIN, DR DAVIS Primary Care Unavailable CUMMINGS ., DR DYLAN Gandhi Attending Unavailable SALINAS .ROMMEL Consulting Unavailable EMILIANO ., DR DYLAN Gandhi Admitting Unavailable DAVIN, DR DAVIS Primary Care Unavailable SALINAS .ROMMEL Consulting Unavailable CUMMINGS ., DR DYLAN Gandhi Attending Unavailable CUMMINGS ., DR DYLAN Gandhi Admitting Unavailable OLEXA, SANTANA Attending Unavailable OLEXA, SANTANA Admitting Unavailable OLEXA, SANTANA Consulting Unavailable BALL, DR DAVIS Primary Care Unavailable CARRILLOMICHOACANO Kwan Consulting Unavailable CUMMINGS ., DR DYLAN Gandhi Consulting Unavailable DAVIN, DR DAVIS Primary Care Unavailable CUMMINGS ., DR DYLAN Gandhi Admitting Unavailable CUMMINGS ., DR DYLAN Gandhi Attending Unavailable CUMMINGS ., DR DYLAN Gandhi Consulting Unavailable CUMMINGS ., DR DYLAN Gandhi Attending Unavailable CUMMINGS ., DR DYLAN Gandhi Admitting Unavailable BALL, DR DVAIS Primary Care Unavailable SHADY, GALE Consulting Unavailable SHADY, GALE Attending Unavailable SHADY, GALE Admitting Unavailable BALL, DR DAVIS Primary Care Unavailable CUMMINGS ., DR DYLAN Gandhi Admitting Unavailable SALINAS ., ROMMEL Consulting Unavailable BALL, DR DAVIS Primary Care Unavailable CUMMINGS ., DR DYLAN Gandhi Attending Unavailable SALINAS ., ROMMEL Consulting Unavailable BALL, DR DAVIS Primary Care Unavailable CUMMINGS ., DR DYLAN Gandhi Attending Unavailable CUMMINGS ., DR DYLAN Gandhi Admitting Unavailable CUMMINGS ., DR DYLAN Gandhi Admitting Unavailable SALINAS ., ROMMEL Consulting Unavailable CUMMINGS ., DR DYLAN Gandhi Attending Unavailable BALL, DR DAVIS Primary Care Unavailable BALL, DR DAVIS Primary Care Unavailable CUMMINGS ., DR DYLAN Gandhi Consulting Unavailable CUMMINGS ., DR DYLAN Gandhi Attending Unavailable CUMMINGS ., DR DYLAN Gandhi Admitting Unavailable MICHEAL, PATRICIO Consulting Unavailable BALL, DR DAVIS Consulting Unavailable BALL, DR DAVIS Primary Care Unavailable BALL, DR DAVIS Admitting Unavailable BALL, DR DAVIS Attending Unavailable WEST, DR MARIBEL Coffman Consulting Unavailable BALL, DR DAVIS Consulting Unavailable BALL, DR DAVIS Primary Care Unavailable BALL, DR DAVIS Admitting Unavailable BALL, DR DAVIS Attending Unavailable ZIEBER, DR BYRON Austin Consulting Unavailable BALL, DR DAVIS Primary Care Unavailable OLEXA, SANTANA Admitting Unavailable OLEXA, SANTANA Consulting Unavailable OLEXA, SANTANA Attending Unavailable CARRILLO, MICHOACANO Consulting Unavailable WEST, DR MARIBEL Coffman Consulting Unavailable OLEXA, SANTANA Admitting Unavailable OLEXA, SANTANA Attending Unavailable BALL, DR DAVSI Primary Care Unavailable OLEXA, SANTANA Consulting Unavailable LAKSHMIPATHY ., ZACHERY Admitting Gabriela vailable LAKSHMIPATHY ., ZACHERY Attending Gabriela vailable DAVIN, DR DAVIS Primary Care Unavailable BALL, DR DAVIS Primary Care Unavailable OLEXA, SANTANA Admitting Unavailable OLEXA, SANTANA Attending Unavailable HUGGINS, DR JOAN Black Consulting Unavailable HUGGINS, DR JOAN Black Attending Unavailable HUGGINS, DR JOAN Black Admitting Unavailable BALL, DR DAVIS Primary Care Unavailable LAKSHMIPATHY ., ZACHERY Admitting Gabriela vailable LAKSHMIPATHY ., ZACHERY Attending Gabriela vailable DAVIN, DR DAVIS Primary Care Unavailable Davin, Ryan Primary Care Unavailable Santana Barr Jr Attending Unavailable Santana Barr Jr Admitting Unavailable Lon Neumann MD Attending Unavailable LUZ MARINA TRUJILLO, ALAN Attending Gabrielav ailable Allergies Allergy Classification Reported Allergen(s) Allergy Type Date of Onset Reaction(s) Facility (13 sources) Ketoprofen Drug Allergy rash [facility] [employer] Other (14 sources) Lisinopril; Translations: [LISINOPRIL] Drug Allergy 022 cough [facility] Repository (13 sources) methylPREDNISolone Drug Allergy elevated BP [facility] [employer] Other (1 source) carvedilol; Translations: [CARVEDILOL] Drug Allergy [facility] Repository (1 source) Amino Acids Drug Allergy [facility] Repository (1 source) Ketoprofen Drug Allergy 016 [facility] Repository (1 source) venlafaxine Drug Allergy [facility] Repository (5 sources) venlafaxine Drug Allergy Unknown [facility] Other (2 sources) patient allergy list reviewed by nurse or physicia Propensity to adverse reactions 019 Comment:Done [facility] Other (2 sources) Allergies Reconciled Propensity to adverse reactions Unknown [facility] Other Medications Current Medications Medication Drug Class(es) Dates Sig (Normalized) Sig (Original) acetaminophen 325 mg / oxyCODONE hydrochloride 5 mg oral tablet (1 source) Opioid Agonist take 1 tablet by mouth every six hours Percocet 5-325 MG 1 tablet as needed Orally every 6 hrs from ER for wrist Active azithromycin 250 mg oral tablet (2 sources) Macrolide Antimicrobial Start: 06-16-2023 Azithromycin 250 MG as directed Orally daily for 5 days Jun, Active cyclobenzaprine (13 sources) Muscle Relaxant Flexeril Not-Gamal ing escitalopram 5 mg oral tablet (3 sources) Serotonin Reuptake Inhibitor take 1 tablet by mouth once at bedtime Escitalopram Oxalate 5 MG 1 tablet Orally q HS for 30 days Active LORazepam 0.5 mg oral tablet (3 sources) Benzodiazepine Start: take 1 tablet by mouth every twenty-four hours LORazepam 0.5 MG 1 tablet at bedtime as needed Orally Once a day for 30 days Jun, Active 24 hr metoprolol succinate 25 mg extended release oral tablet (3 sources) beta-Adrenergic Argenis Start: 023 take 1 tablet by mouth every twenty-four hours Metoprolol Succinate ER 25 MG 1 tablet Orally Once a day for 30 days Jun, Active nabumetone 500 mg oral tablet (13 sources) Nonsteroidal Anti-inflammatory Drug take 1 tablet [...] Oct, Active tiZANidine 4 mg oral tablet (8 sources) Central alpha-2 Adrenergic Agonist take 1 tablet by mouth every eight hours tiZANidine HCl 4 MG 1 tablet as needed Orally Three times a day Active traMADol hydrochloride 50 mg oral tablet (13 sources) Opioid Agonist take 1 tablet by mouth every twenty-four hours traMADol HCl 50 MG 1 tablet as needed Orally Once a day Active valACYclovir 1000 mg oral tablet (8 sources) Herpesvirus Nucleoside Analog DNA Polymerase Inhibitor, [...] Active take 1 tablet by kelly th twice daily, then take 1 tablet by mouth once daily valACYclovir HCl 1 GM TAKE 1 TABLET BY MOUTH TWICE A DAY FOR 7 DAYS THEN 1 TABLET BY MOUTH DAILY for 90 Active take 1 tablet by kelly th every twenty-four hours Valtrex 1 GM 1 tablet Orally Once a day Active wegovy 0.25 mg/0.5ml solution auto-injector (1 source) Start: 08-04-2023 inject 0.25 mg by subcutaneous injection every week Wegovy 0.25 MG/0.5ML 0.25mg Subcutaneous weekly for 30 days Jul, Active Problems Active Problems Problem Classification Problem Date Documented Date Episodic/Chronic Anxiety disorders (11 sources) Generalized anxiety disorder; Translations: [Generalized anxiety disorder] Chronic Cardiac dysrhythmias (1 source) Palpitations Episodic Diabetes mellitus without complication (11 sources) Impaired fasting glycemia; Translations: [Impaired fasting glucose] Episodic Essential hypertension (9 sources) Essential hypertension; Translations: [Essential (primary) hypertension] Chronic Inflammatory diseases of female pelvic organs (6 sources) Acute vaginitis; Translations: [Acute vaginitis] Onset: 05-13-2022 Episodic Menopausal disorders (2 sources) Menopause present; Translations: [Menopausal and female climacteric states] Onset: 03-27-2014 Chronic Miscellaneous mental health disorders (8 sources) Mental disorder; Translations: [Mental disorder, not otherwise specified] Chronic Nausea and vomiting (1 source) Nausea with vomiting, unspecified; Translations: [Nausea with vomiting, unspecified] Onset: 02-05-2023 Episodic Nonmalignant breast conditions (2 sources) Inflammatory disorder of breast; Translations: [Mastitis without abscess] Episodic Other acquired deformities (8 sources) Joint contracture of the ankle and/or foot; Translations: [Contracture, right ankle] Chronic Other circulatory disease (1 source) Elevated blood-pressure reading, without diagnosis of hypertension Episodic Other congenital anomalies (2 sources) Congenital spondylolysis of lumbosacral region; Translations: [Congenital spondylolysis, lumbosacral region] Onset: 06-08-2017 Chronic Other connective tissue disease (10 sources) Tibialis tendinitis; Translations: [Posterior tibial tendinitis, [...] nervous system] Episodic Other non-traumatic joint disorders (11 sources) Arthralgia of the pelvic region and thigh; Translations: [Pain in left hip] Onset: 06-08-2017 Episodic Other non-traumatic joint disorders (8 sources) Instability of joint of right foot; Translations: [Other instability, right foot] Episodic Other non-traumatic joint disorders (5 sources) Pain in left hip; Translations: [PAIN IN LEFT HIP] Onset: 03-05-2022 Episodic Other nutritional; endocrine; and metabolic disorders (14 sources) Body mass index 30+ - obesity; Translations: [Obesity, unspecified] Chronic Other nutritional; endocrine; and metabolic disorders (1 source) Obesity, unspecified Chronic Other nutritional; endocrine; and metabolic disorders (6 sources) Obesity caused by energy imbalance; Translations: [Other obesity due to excess calories] Chronic Other nutritional; endocrine; and metabolic disorders (4 sources) Other obesity due to excess calories Chronic Other nutritional; endocrine; and metabolic disorders (1 source) Body mass index (BMI) 31.0-31.9, adult Chronic Other nutritional; endocrine; and metabolic disorders (4 sources) Obese class I; Translations: [Body mass index 34.0-34.9, adult] Onset: 06-08-2017 Chronic Other nutritional; endocrine; and metabolic disorders (2 sources) Obesity; Translations: [Obesity, unspecified] Chronic Other nutritional; endocrine; and metabolic disorders (1 source) Body mass index (BMI) 30.0-30.9, adult Chronic Other skin disorders (2 sources) H/O: skin disorder; Translations: [Personal history of diseases of the skin and subcutaneous tissue] Episodic Pathological fracture (11 sources) Pathological fracture; Translations: [Personal history of (healed) osteoporosis fracture] Onset: 11-27-2021 Episodic Residual codes; unclassified (8 sources) Family history of dementia; Translations: [Family history of other mental and behavioral disorders] Episodic Residual codes; unclassified (9 sources) Asymptomatic menopausal state; Translations: [Menopause] Onset: 11-27-2021 Episodic Residual codes; unclassified (2 sources) Postmenopausal state; Translations: [Asymptomatic menopausal state] Episodic Residual codes; unclassified (2 sources) Family history of mental disorder; Translations: [Family history of other mental and behavioral disorders] Episodic Skin and subcutaneous tissue infections (12 sources) Carbuncle, unspecified; Translations: [Carbuncle] Resolved: 11-19-2021 [...] [Other specified cough] Onset: 01-09-2016 Viral infection (10 sources) Herpes simplex type 2 infection; Translations: [...] (SUSP) EXPOS COVID-19] Onset: 05-24-2022 Viral infection (11 sources) Disease caused by 2019-nCoV; Translations: [COVID-19] Onset: 05-22-2022 Results Test Name Value Interpretation Reference Range Facility Complete Blood Count Auto Di ffon 02-05-2023 Basophils (Bld) [#/Vol] 0.0 10*3/uL Normal 0.0-0.2 [facility] Comment on above: Result Comment: PERF ORMED BY: [place] [address] PATHOLOGIST CALENDER LET OFF HELPER ADRIENNE CONTEH M.D. Performed By: #### C BC, CMP #### [address] Basophils/100 WBC (Bld) 0.3 % Normal . [facility] Comment on above: Performed By: #### C BC, CMP #### [place] [address] [place] Eosinophils (Bld) [#/Vol] 0.0 10*3/uL Normal 0.0-0.45 [facility] Comment on above: Performed By: #### C BC, CMP #### [address] Eosinophils/100 WBC (Bld) 0.1 % Normal . [facility] Comment on above: Performed By: #### C BC, CMP #### [address] Erythrocyte distribution width (RBC) [Ratio] 12.6 % Normal 11.9-15.3 [facility] Comment on above: Performed By: #### C BC, CMP #### [facility] [address] Hematocrit (Bld) [Volume fraction] 38.0 % Normal 34.0-46.4 [facility] Comment on above: Performed By: #### C BC, CMP #### [facility] [address] Hemoglobin (Bld) [Mass/Vol] 12.9 g/dL Normal 11.8-15.4 [facility] Comment on above: Performed By: #### C BC, CMP #### [facility] [address] Lymphocytes (Bld) [#/Vol] 1.5 10*3/uL Normal 1.00-4.8 [facility] Comment on above: Performed By: #### C BC, CMP #### [facility] [address] Lymphocytes/100 WBC (Bld) 13.9 % Normal . [facility] Comment on above: Performed By: #### C BC, CMP #### [facility] [address] MCH (RBC) [Entitic mass] 30.7 pg Normal 24.7-34.3 [facility] Comment on above: Performed By: #### C BC, CMP #### [facility] [address] MCV (RBC) [Entitic vol] 90.1 fL Normal 80-100 [facility] Comment on above: Performed By: #### C BC, CMP #### [facility] [address] Mean Corpuscular HGB Conc 34.1 g/dL Normal 32.0-35.0 [facility] Comment on above: Performed By: #### C BC, CMP #### [facility] [address] Monocytes (Bld) [#/Vol] 0.3 10*3/uL Normal 0.0-0.8 [facility] Comment on above: Performed By: #### C BC, CMP #### [facility] [address] [place] [address] [place] Monocytes/100 WBC (Bld) 14.63 % Normal 0.00-20.00 [facility] Comment on above: Performed By: #### C BC, CMP #### [facility] [address] [place] [address] [place] Monocytes/100 WBC (Bld) 2.8 % Normal . [facility] Comment on above: Performed By: #### C BC, CMP #### [facility] [address] Neutrophils (Bld) [#/Vol] 9.0 10*3/uL High 1.8-7.7 [facility] Comment on above: Performed By: #### C BC, CMP #### [facility] [address] Neutrophils/100 WBC (Bld) 82.9 % Normal . [facility] Comment on above: Performed By: #### C BC, CMP #### [facility] [address] [place] [address] [place] NRBC% 0.1 /100{WBC} Normal 0-0.5 [facility] Comment on above: Performed By: #### C BC, CMP #### [facility] [address] Platelet mean volume (Bld) [Entitic vol] 8.1 fL Normal 6.3-10.7 [facility] Comment on above: Performed By: #### C BC, CMP #### [facility] [address] [place] [address] [place] Platelets (Bld) [#/Vol] 197 10*3/uL Normal 150-450 [facility] Comment on above: Performed By: #### C BC, CMP #### [facility] [address] [place] [address] [place] RBC (Bld) [#/Vol] 4.22 10*6/uL Normal 3.60-5.00 [facility] Comment on above: Performed By: #### C BC, CMP #### [facility] [address] WBC (Bld) [#/Vol] 10.9 10*3/uL Normal 3.8-11.6 [facility] Comment on above: Performed By: #### C BC, CMP #### [facility] [address] Comprehensive Metabolic Pane mayito 02-05-2023 Albumin [Mass/Vol] 4.6 g/dL Normal 3.5-5.7 [facility] Comment on above: Performed By: #### C BC, CMP #### [facility] [address] Albumin/Globulin [Mass ratio] 1.4 {ratio} Normal [facility] Comment on above: Performed By: #### C BC, CMP #### [facility] [address] ALP [Catalytic activity/Vol] 40 U/L Normal 34-104 [facility] Comment on above: Performed By: #### C BC, CMP #### [facility] [address] ALT [Catalytic activity/Vol] 12 U/L Normal 7-52 [facility] Comment on above: Performed By: #### C BC, CMP #### [facility] [address] Anion gap [Moles/Vol] 14.1 mmol/L Normal 6.0-15.0 [facility] Comment on above: Performed By: #### C BC, CMP #### [facility] [address] [place] [id number] [facility] AST [Catalytic activity/Vol] 14 U/L Normal 13-39 [facility] Comment on above: Performed By: #### C BC, CMP #### [facility] [address] Bilirubin [Mass/Vol] 0.3 mg/dL Normal 0.3-1.0 [facility] Comment on above: Performed By: #### C BC, CMP #### [facility] [address] Calcium [Mass/Vol] 8.9 mg/dL Normal 8.6-10.3 [facility] Comment on above: Performed By: #### C BC, CMP #### [facility] [address] Chloride [Moles/Vol] 105 mmol/L Normal 98-107 [facility] Comment on above: Performed By: #### C BC, CMP #### [facility] [address] CO2 [Moles/Vol] 23.7 mmol/L Normal 21.0-31.0 [facility] Comment on above: Performed By: #### C BC, CMP #### [address] Creatinine [Mass/Vol] 0.78 mg/dL Normal 0.60-1.20 [facility] Comment on above: Performed By: #### C BC, CMP #### [address] Creatinine Clr Calc Pharmacy 79.00 [facility] Comment on above: Result Comment: PERF ORMED BY: [place] [address] PATHOLOGIST CALENDER LET OFF HELPER ADRIENNE CONTEH M.D. Performed By: #### C BC, CMP #### [address] GFR/1.73 sq M.predicted MDRD (S/P/Bld) [Vol rate/Area] mL/min/{1.73_m2} [facility] Comment on above: Performed By: #### C BC, CMP #### [facility] [address] Globulin (S) [Mass/Vol] 3.2 g/dL [facility] Comment on above: Performed By: #### C BC, CMP #### [address] Glucose [Mass/Vol] 121 mg/dL High 70-100 [facility] Comment on above: Result Comment: [place] Glucose Reference Range is dependent on time and content of last meal. Glucose of more than 200 mg/dL in a nonstressed, ambulatory subject supports the diagnosis of Diabetes Mellitus. ADA recommended reference range Performed By: #### C BC, CMP #### [facility] [address] [place] [address] [place] Potassium [Moles/Vol] 3.8 mmol/L Normal 3.5-5.1 [facility] Comment on above: Performed By: #### C BC, CMP #### [facility] [address] [place] [id number] [place] Protein [Mass/Vol] 7.8 g/dL Normal 6.4-8.9 [facility] Comment on above: Performed By: #### C BC, CMP #### [facility] [address] [place] [id number] [place] Sodium [Moles/Vol] 139 mmol/L Normal 136-145 [facility] Comment on above: Performed By: #### C BC, CMP #### [facility] [address] [place] [id number] [place] Urea nitrogen [Mass/Vol] 14 mg/dL Normal 7-25 [facility] Comment on above: Performed By: #### C BC, CMP #### [facility] [address] [place] [address] [place] Dipstick and Microscopicon 0 02-05-2023 Appearance (U) Clear Normal Clear [facility] Comment on above: Order Comment: Name Collection Type:: Clean-Voided Midstream Performed By: #### A DDONUAPLUS #### [facility] [address] [place] [address] [place] Bacteria,Urine None Seen Normal None Seen [facility] Comment on above: Order Comment: Name Collection Type:: Clean-Voided Midstream Performed By: #### A DDONUAPLUS #### [facility] [address] [place] [id number] [place] Bilirubin,Urine Negative Normal Negative [facility] Comment on above: Order Comment: Name Collection Type:: Clean-Voided Midstream Performed By: #### A DDONUAPLUS #### [facility] [address] [place] [address] [place] Color (U) Yellow Normal Yellow [facility] Comment on above: Order Comment: Name Collection Type:: Clean-Voided Midstream Performed By: #### A DDONUAPLUS #### [facility] [address] [place] [address] [place] Glucose Ql (U) Normal Normal Normal [facility] Comment on above: Order Comment: Name Collection Type:: Clean-Voided Midstream Performed By: #### A DDONUAPLUS #### [facility] [address] [place] [place] [address] [place] Hyaline Casts,Urine 0-8 Normal 0-8 [facility] Comment on above: Order Comment: Name Collection Type:: Clean-Voided Midstream Result Comment: PERF ORMED BY: [place] [address] PATHOLOGIST CALENDER LET OFF HELPER ADRIENNE CONTEH M.D. Performed By: #### A DDONUAPLUS #### [facility] [address] [place] [address] [place] Ketones Ql (U) Trace High Negative [facility] Comment on above: Order Comment: Name Collection Type:: Clean-Voided Midstream Performed By: #### A DDONUAPLUS #### [facility] [address] [place] [place] [address] [place] Leukocyte esterase Test strip Ql (U) Negative Normal Negative [facility] Comment on above: Order Comment: Name Collection Type:: Clean-Voided Midstream Performed By: #### A DDONUAPLUS #### [facility] [address] [place] [place] [address] [place] Nitrite,Urine Negative Normal Negative [facility] Comment on above: Order Comment: Name Collection Type:: Clean-Voided Midstream Performed By: #### A DDONUAPLUS #### [facility] [address] [place] [address] [place] Occult Blood,Urine Negative Normal Negative [facility] Comment on above: Order Comment: Name Collection Type:: Clean-Voided Midstream Result Comment: PERF ORMED BY: [place] [address] PATHOLOGIST CALENDER LET OFF HELPER ADRIENNE CONTEH M.D. Performed By: #### A DDONUAPLUS #### [address] pH (U) 5.5 [pH] Normal 5.0-9.0 [facility] Comment on above: Order Comment: Name Collection Type:: Clean-Voided Midstream Performed By: #### A DDONUAPLUS #### [place] [address] [place] Protein,Urine Trace High Negative [facility] Comment on above: Order Comment: Name Collection Type:: Clean-Voided Midstream Performed By: #### A DDONUAPLUS #### [address] RBC,Urine 1-2 Normal 0-4 [facility] Comment on above: Order Comment: Name Collection Type:: Clean-Voided Midstream Performed By: #### A DDONUAPLUS #### [address] Specificy [place],Urine 1.026 Normal 1.001-1.030 [facility] Comment on above: Order Comment: Name Collection Type:: Clean-Voided Midstream Performed By: #### A DDONUAPLUS #### [place] [address] [place] Squamous Epithelial Cell,Urine 3-4 High 0-2 [facility] Comment on above: Order Comment: Name Collection Type:: Clean-Voided Midstream Performed By: #### A DDONUAPLUS #### [address] Urobilinogen,Urine Normal Normal Normal [facility] Comment on above: Order Comment: Name Collection Type:: Clean-Voided Midstream Performed By: #### A DDONUAPLUS #### [place] [address] [place] WBC,Urine 3-4 Normal 0-4 [facility] Comment on above: Order Comment: Name Collection Type:: Clean-Voided Midstream Performed By: #### A DDONUAPLUS #### [facility] [address] CBC AUTO DIFFon 10-23-2022 BASO # 0.1 103/ul Normal 0.0-0.1 [facility] Comment on above: Performed By: #### C VDAGA #### [facility] [address] [place] [address] Dr. Karlo Beltre Basophils/100 WBC (Bld) 0.9 % Normal 0.2-2.0 [facility] Comment on above: Performed By: #### C VDAGA #### [facility] [address] [place] [address] Dr. Karlo Beltre EO # 0.1 103/ul Normal 0.0-0.7 [facility] Comment on above: Performed By: #### C VDAGA #### [facility] [address] [place] [address] Dr. Karlo Beltre Eosinophils/100 WBC (Bld) 2.1 % Normal 0.9-7.0 [facility] Comment on above: Performed By: #### C VDAGA #### [facility] [address] [place] [address] Dr. Karlo Beltre Erythrocyte distribution width (RBC) [Ratio] 12.3 % Normal 11.0-15.0 [facility] Comment on above: Performed By: #### C VDAGA #### [facility] [address] [place] [address] Dr. Karlo Beltre Hematocrit (Bld) [Volume fraction] 38.3 % Normal 36.0-48.0 [facility] Comment on above: Performed By: #### C VDAGA #### [facility] [address] [place] [address] Dr. Karlo Beltre Hemoglobin (Bld) [Mass/Vol] 12.9 g/dL Normal 12.0-16.0 [facility] Comment on above: Performed By: #### C VDAGA #### [facility] [address] [place] [address] Dr. Karlo Beltre IG # 0.01 10e3/ul Normal 0.00-0.03 [facility] Comment on above: Performed By: #### C VDAGA #### [facility] [address] [place] [address] Dr. Karlo Beltre IG % 0.2 % Normal 0.0-0.5 [facility] Comment on above: Performed By: #### C VDAGA #### [facility] [address] [place] [address] Dr. Karlo Beltre LYMPH # 2.5 103/ul Normal 1.2-3.8 [facility] Comment on above: Performed By: #### C VDAGA #### [facility] [address] [place] [address] Dr. Karlo Beltre Lymphocytes/100 WBC (Bld) 43.8 % Normal 20.5-60.0 [facility] Comment on above: Performed By: #### C VDAGA #### [facility] [address] [place] [address] Dr. Karlo Beltre MANUAL DIFF REQ NO Normal [facility] Comment on above: Performed By: #### C VDAGA #### [facility] [address] [place] [address] Dr. Karlo Beltre MCH (RBC) [Entitic mass] 30.4 pg Normal 26.7-34.0 [facility] Comment on above: Performed By: #### C VDAGA #### [facility] [address] [place] [address] Dr. Karlo Beltre MCHC (RBC) [Mass/Vol] 33.7 g/dL Normal 29.9-35.2 [facility] Comment on above: Performed By: #### C VDAGA #### [facility] [address] [place] [address] Dr. Karlo Beltre MCV (RBC) [Entitic vol] 90.1 fL Normal 81.0-99.0 [facility] Comment on above: Performed By: #### C VDAGA #### [facility] [address] [place] [address] Dr. Karlo Beltre MONO # 0.4 103/ul Normal 0.3-0.8 [facility] Comment on above: Performed By: #### C VDAGA #### [facility] [address] [place] [address] Dr. Karlo Beltre Monocytes/100 WBC (Bld) 6.7 % Normal 1.7-12.0 [facility] Comment on above: Performed By: #### C VDAGA #### [facility] [address] [place] [address] Dr. Karlo Beltre NEUT # 2.6 103/ul Normal 1.4-6.5 [facility] Comment on above: Performed By: #### C VDAGA #### [facility] [address] [place] [address] Dr. Karlo Beltre Neutrophils/100 WBC (Bld) 46.3 % Normal 43.0-75.0 [facility] Comment on above: Performed By: #### C VDAGA #### [facility] [address] [place] [address] Dr. Karlo Beltre Platelet mean volume (Bld) [Entitic vol] 9.6 fL Normal 9.5-13.5 [facility] Comment on above: Performed By: #### C VDAGA #### [facility] [address] [place] [address] Dr. Karlo Beltre PLT 190 103/ul Normal 150-450 [facility] Comment on above: Performed By: #### C VDAGA #### [facility] [address] [place] [address] Dr. Karlo Beltre RBC 4.25 106/ul Normal 4.20-5.40 [facility] Comment on above: Performed By: #### C VDAGA #### [facility] [address] [place] [address] Dr. Karlo Beltre WBC 5.7 103/ul Normal 4.0-11.0 [facility] Comment on above: Performed By: #### C VDAGA #### [facility] [address] [place] [address] Dr. Karlo Beltre GLYCOHEMOGLOBIN A1Con 2022 ADA RECOMMENDATION SEE BELOW Normal [facility] Comment on above: Result Comment: ADA RECOMMENDED LIMIT 4.0 - 6.0 ADA THERAPEUTIC TARGET < 7.0 ACTION SUGGESTED > 7.0 Performed By: #### A 1C #### [facility] [address] [address] [address] Karlo Beltre Glucose [Mass/Vol] 114 mg/dL Normal [facility] Comment on above: Performed By: #### A 1C #### [facility] [address] [address] [address] Karlo Beltre HbA1c (Bld) [Mass fraction] 5.6 % Normal 4.5-6.2 [facility] Comment on above: Performed By: #### A 1C #### [facility] [address] [place] [address] Dr. Karlo Beltre LIPID PROFILEon 10-23-2022 CHOL-HDL RATIO NORM SEE BELOW Normal [facility] Comment on above: Result Comment: 3.3 - 4.4 LOW RISK 4.4 - 7.1 AVERAGE RISK 7.1 - 11.0 MODERATE RISK >11.0 HIGH RISK Performed By: #### L IPID, TSH, CMP #### [facility] [address] [place] [address] Dr. Karlo Beltre Cholesterol [Mass/Vol] 249 mg/dL Critically high <=200 [facility] Comment on above: Performed By: #### L IPID, TSH, CMP #### [facility] [address] [address] [address] Karlo Beltre Cholesterol in HDL [Mass/Vol] 82 mg/dL Critically high 40-60 [facility] Comment on above: Performed By: #### L IPID, TSH, CMP #### [facility] [address] [address] [address] Karlo Beltre Cholesterol in LDL [Mass/Vol] 152.2 mg/dL Normal [facility] Comment on above: Performed By: #### L IPID, TSH, CMP #### [facility] [address] [place] [address] Dr. Karlo Beltre Cholesterol.total/Ch olesterol in HDL [Mass ratio] 3.0 {ratio} Normal [facility] Comment on above: Performed By: #### L IPID, TSH, CMP #### [facility] [address] [address] [address] Karlo Beltre HDL NORMAL > or = 60 mg/dl - LOW CARDIOVASCULAR RISK <40 mg/dl - HIGH CARDIOVASCULAR RISK Normal [facility] Comment on above: Performed By: #### L IPID, TSH, CMP #### [facility] [address] [address] [address] Karlo Beltre LDL CALC NORMAL SEE BELOW Normal [facility] Comment on above: Result Comment: <100 mg/dl OPTIMAL 100 - 129 mg/dl NEAR OR ABOVE OPTIMAL 130 - 159 mg/dl BORDERLINE HIGH 160 - 189 mg/dl HIGH >190 mg/dl VERY HIGH Performed By: #### L IPID, TSH, CMP #### [facility] [address] [address] [address] Karlo Beltre Triglyceride [Mass/Vol] 74 mg/dL Normal <=150 [facility] Comment on above: Performed By: #### L IPID, TSH, CMP #### [facility] [address] [address] [address] Karlo Beltre VLDL CALC 14.8 mg/dL Normal [facility] Comment on above: Performed By: #### L IPID, TSH, CMP #### [facility] [address] [address] [address] Karlo Beltre PROF 14(COMP METB)on 023 Albumin [Mass/Vol] 3.9 g/dL Normal 3.4-5.0 [facility] Comment on above: Performed By: #### L IPID, TSH, CMP #### [facility] [address] [place] [address] Dr. Karlo Beltre Albumin/Globulin [Mass ratio] 1.1 {ratio} Normal [facility] Comment on above: Performed By: #### L IPID, TSH, CMP #### [facility] [address] [address] [address] Karlo Beltre ALP [Catalytic activity/Vol] 49 U/L Normal 46-116 [facility] Comment on above: Performed By: #### L IPID, TSH, CMP #### [facility] [address] [place] [address] Dr. Karlo Beltre ALT [Catalytic activity/Vol] 23 U/L Normal 14-59 [facility] Comment on above: Performed By: #### L IPID, TSH, CMP #### [facility] [address] [place] [address] Dr. Karlo Beltre Anion gap [Moles/Vol] 13.5 mmol/L Normal [facility] Comment on above: Performed By: #### L IPID, TSH, CMP #### [facility] [address] [place] [address] Dr. Karlo Beltre AST [Catalytic activity/Vol] 15 U/L Normal 15-37 [facility] Comment on above: Performed By: #### L IPID, TSH, CMP #### [facility] [address] [place] [address] Dr. Karlo Beltre Bilirubin [Mass/Vol] 0.4 mg/dL Normal 0.2-1.0 [facility] Comment on above: Performed By: #### L IPID, TSH, CMP #### [facility] [address] [place] [address] Dr. Karlo Beltre Calcium [Mass/Vol] 9.2 mg/dL Normal 8.5-10.1 [facility] Comment on above: Performed By: #### L IPID, TSH, CMP #### [facility] [address] [place] [address] Dr. Karlo Beltre Chloride [Moles/Vol] 107 mmol/L Normal 98-107 [facility] Comment on above: Performed By: #### L IPID, TSH, CMP #### [facility] [address] [place] [address] Dr. Karlo Beltre CO2 [Moles/Vol] 26.6 mmol/L Normal 21.0-32.0 [facility] Comment on above: Performed By: #### L IPID, TSH, CMP #### [facility] [address] [address] [address] Karlo Beltre Creatinine [Mass/Vol] 0.82 mg/dL Normal 0.55-1.02 [facility] Comment on above: Performed By: #### L IPID, TSH, CMP #### [facility] [address] [address] [address] Karlo Beltre EGFR-AF MONTENEGRIN >60 Normal >=60 [facility] Comment on above: Performed By: #### L IPID, TSH, CMP #### [facility] [address] [address] [address] Karlo Beltre EGFR-NON AF MONTENEGRIN >60 Normal >=60 [facility] Comment on above: Performed By: #### L IPID, TSH, CMP #### [facility] [address] [place] [address] Dr. Karlo Beltre Globulin (S) [Mass/Vol] 3.7 g/dL Normal [facility] Comment on above: Performed By: #### L IPID, TSH, CMP #### [facility] [address] [address] [address] Karlo Beltre Glucose [Mass/Vol] 95 mg/dL Normal 74-106 [facility] Comment on above: Performed By: #### L IPID, TSH, CMP #### [facility] [address] [address] [address] Karlo Beltre Potassium [Moles/Vol] 4.1 mmol/L Normal 3.5-5.1 [facility] Comment on above: Performed By: #### L IPID, TSH, CMP #### [facility] [address] [address] [address] Karlo Beltre Protein [Mass/Vol] 7.6 g/dL Normal 6.4-8.2 [facility] Comment on above: Performed By: #### L IPID, TSH, CMP #### [facility] [address] [address] [address] Karlo Beltre Sodium [Moles/Vol] 143 mmol/L Normal 136-145 [facility] Comment on above: Performed By: #### L IPID, TSH, CMP #### [facility] [address] [place], [place] [address] Dr. Karlo Beltre Urea nitrogen [Mass/Vol] 17.0 mg/dL Normal 7.0-18.0 [facility] Comment on above: Performed By: #### L IPID, TSH, CMP #### [facility] [address] [place], [place] [address] Dr. Karlo Beltre Urea nitrogen/Creatinine [Mass ratio] 20.7 mg/mg Normal [facility] Comment on above: Performed By: #### L IPID, TSH, CMP #### [facility] [address] [place], [place] [address] Dr. Karlo Beltre TSHon 10-23-2022 TSH 1.095 uIU/mL Normal 0.358-3.740 [facility] Comment on above: Performed By: #### L IPID, TSH, CMP #### [facility] [id number] Karlo Beltre MG MAMM SCREEN 3D CJ CADon 06-30-2022 MG MAMM SCREEN 3D CJ CAD Patient: JEANNE ANNA Exam Date: 06/30/2022 : 1970 Gender:F Ordering : DR RYAN JIN D.O. Admission #: [id number] Family : Order #: [id number] CLICK HERE TO VIEW EXAM RADIOLOGY REPORT [...] at age 45. LOCATION: [facility] BREAST COMPOSITION: Scattered areas fibroglandular density. [...] 07/02/2022 at 08:04 Normal [facility] ASYMPTOMATIC COVID-19 ANTIGE Non 05-24-2022 EUA Statement SEE BELOW Normal [facility] Comment on above: Result Comment: [...] By: #### C VDAGA #### [facility] [address] [place] [address] Dr. Karlo Beltre SARS-CoV-2 (COVID-19) RNA YUNG+probe Ql (Unsp spec) Negative Normal NEGATIVE [facility] Comment on above: Result Comment: Nega tive results are presumptive. They do not preclude infection and should not be used as the sole basis for treatment decisions. Additional confirmatory testing by a molecular method should be considered. Performed By: #### C VDAGA #### [facility] [address] [place] [address] Dr. Karlo Beltre Covid-19 PCR (CVDTB)on 05-05 SARS-CoV-2 (COVID-19) RNA YUNG+probe Ql (Unsp spec) Detected Critically abnormal NOT DETECTED [facility] Comment on above: Result Comment: This test is not yet approved or cleared by the [place] FDA. When there are no FDA-approved or cleared tests available, and other criteria are met, FDA can make tests available under an emergency access mechanism called an Emergency Use Authorization (EUA). The EUA for this test is supported by the [place] of Health and Human Service's declaration that [...] By: #### C VDAGA #### [facility] [address] [place] [address] Dr. Karlo Beltre HERPES SIMPLEX VIRUS 1/2 DNA PCRon 05-19-2022 HSV-1 DNA Negative Normal Negative [facility] Comment on above: Performed By: #### H SVPCR #### [facility] [address] [place] [address] Dr. Karlo Beltre HSV-2 DNA Positive Abnormal Negative [facility] Comment on above: Result Comment: This test was developed and its performance characteristics determined by [employer]. It has not been cleared or approved by the [place] Food and Drug Administration. The FDA has determined that such clearance or approval is not necessary. This test is used for clinical purposes. It should not be regarded as investigational or research. Performed By: #### H SVPCR #### [facility] [address] [place] [address] Dr. 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 Typing was confirmed by monoclonal antibody microscopic immunofluorescence. Performed By: #### C VDAGA #### [facility] [address] [place] [address] Dr. Karlo Beltre Covid-19 PCR (CVDTB)on 04-04 SARS-CoV-2 (COVID-19) RNA YUNG+probe Ql (Unsp spec) Not detected Normal NOT DETECTED [facility] Comment on above: Result Comment: This test is not yet approved or cleared by the [place] FDA. When there are no FDA-approved or cleared tests available, and other criteria are met, FDA can make tests available under an emergency access mechanism called an Emergency Use Authorization (EUA). The EUA for this test is supported by the [place] of Health and Human Service's (HHS's) declaration [...] consistent with SARS-CoV-2. Performed By: #### C VDAGA #### [facility] [address] [place] [address] Dr. Karlo Beltre Covid-19 PCR ([facility])on SARS-CoV-2 (COVID-19) RNA YUNG+probe Ql (Unsp spec) Not detected Normal NOT DETECTED [facility] Comment on above: Result Comment: When [...] for this test is supported by the [place] of Health and Human Service's declaration that [...] By: #### C VDAGA #### [facility] [address] [place] [address] Dr. Karlo Beltre Office Visiton 04-07-2022 Follow-up visit [id number] Jeanne Anna 1970 F Date Provider Department Center 04/07/2022 [facility] MP[facility]THO No family history on file Level of Service:49824 [place] OFFICE/OUTPATIENT NEW LOW [facility] 30-44 MINUTES (GC) Reason for Visit and Comments: Pain [136] Normal [facility] XR WRIST RT 2Von 12-15-2021 XR [...] by: MICHOACANO CARRILLO Date: 2021-12-15 21:12 Normal [facility] CBC AUTO DIFFon 11-25-2021 BASO # 0.1 103/ul Normal 0.0-0.1 [facility] Comment on above: Performed By: #### C VDAGA #### [facility] [address] [place] [address] Dr. Karlo Beltre Basophils/100 WBC (Bld) 0.8 % Normal 0.2-2.0 [facility] Comment on above: Performed By: #### C VDAGA #### [facility] [address] [place] [address] Dr. Karlo Beltre EO # 0.1 103/ul Normal 0.0-0.7 [facility] Comment on above: Performed By: #### C VDAGA #### [facility] [address] [place] [address] Dr. Karlo Beltre Eosinophils/100 WBC (Bld) 1.8 % Normal 0.9-7.0 [facility] Comment on above: Performed By: #### C VDAGA #### [facility] [address] [place] [address] Dr. Karlo Beltre Erythrocyte distribution width (RBC) [Ratio] 12.7 % Normal 11.0-15.0 [facility] Comment on above: Performed By: #### C VDAGA #### [facility] [address] [place] [address] Dr. Karlo Beltre Hematocrit (Bld) [Volume fraction] 38.9 % Normal 36.0-48.0 [facility] Comment on above: Performed By: #### C VDAGA #### [facility] [address] [place] [address] Dr. Karlo Beltre Hemoglobin (Bld) [Mass/Vol] 12.6 g/dL Normal 12.0-16.0 [facility] Comment on above: Performed By: #### C VDAGA #### [facility] [address] [place] [address] Dr. Karlo Beltre IG # 0.01 10e3/ul Normal 0.00-0.03 [facility] Comment on above: Performed By: #### C VDAGA #### [facility] [address] [place] [address] Dr. Karlo Beltre IG % 0.2 % Normal 0.0-0.5 [facility] Comment on above: Performed By: #### C VDAGA #### [facility] [address] [place] [address] Dr. Karlo Beltre LYMPH # 2.2 103/ul Normal 1.2-3.8 [facility] Comment on above: Performed By: #### C VDAGA #### [facility] [address] [place] [address] Dr. Karlo Beltre Lymphocytes/100 WBC (Bld) 36.1 % Normal 20.5-60.0 [facility] Comment on above: Performed By: #### C VDAGA #### [facility] [address] [place] [address] Dr. Karlo Beltre MANUAL DIFF REQ NO Normal [facility] Comment on above: Performed By: #### C VDAGA #### [facility] [address] [place] [address] Dr. Karlo Beltre MCH (RBC) [Entitic mass] 30.3 pg Normal 26.7-34.0 [facility] Comment on above: Performed By: #### C VDAGA #### [facility] [address] [place] [address] Dr. Karlo Beltre MCHC (RBC) [Mass/Vol] 32.4 g/dL Normal 29.9-35.2 [facility] Comment on above: Performed By: #### C VDAGA #### [facility] [address] [place] [address] Dr. Karlo Beltre MCV (RBC) [Entitic vol] 93.5 fL Normal 81.0-99.0 [facility] Comment on above: Performed By: #### C VDAGA #### [facility] [address] [place] [address] Dr. Karlo Beltre MONO # 0.4 103/ul Normal 0.3-0.8 [facility] Comment on above: Performed By: #### C VDAGA #### [facility] [address] [place] [address] Dr. Karlo Beltre Monocytes/100 WBC (Bld) 6.4 % Normal 1.7-12.0 [facility] Comment on above: Performed By: #### C VDAGA #### [facility] [address] [place] [address] Dr. Karlo Beltre NEUT # 3.4 103/ul Normal 1.4-6.5 [facility] Comment on above: Performed By: #### C VDAGA #### [facility] [address] [place] [address] Dr. Karlo Beltre Neutrophils/100 WBC (Bld) 54.7 % Normal 43.0-75.0 [facility] Comment on above: Performed By: #### C VDAGA #### [facility] [address] [place] [address] Dr. Karlo Beltre Platelet mean volume (Bld) [Entitic vol] 8.9 fL Critically low 9.5-13.5 [facility] Comment on above: Performed By: #### C VDAGA #### [facility] [address] [address] [address] Karlo Beltre PLT 251 103/ul Normal 150-450 [facility] Comment on above: Performed By: #### C VDAGA #### [facility] [address] [address] [address] Karlo Beltre RBC 4.16 106/ul Critically low 4.20-5.40 [facility] Comment on above: Performed By: #### C VDAGA #### [facility] [address] [address] [address] Karlo Beltre WBC 6.1 103/ul Normal 4.0-11.0 [facility] Comment on above: Performed By: #### C VDAGA #### [facility] [address] [place] [address] Dr. Karlo Beltre GLYCOHEMOGLOBIN A1Con 2021 ADA RECOMMENDATION SEE BELOW Normal [facility] Comment on above: Result Comment: ADA RECOMMENDED LIMIT 4.0 - 6.0 ADA THERAPEUTIC TARGET < 7.0 ACTION SUGGESTED > 7.0 Performed By: #### A 1C #### [facility] [address] [place] [address] Dr. Karlo Beltre Glucose [Mass/Vol] 117 mg/dL Normal [facility] Comment on above: Performed By: #### A 1C #### [facility] [address] [place] [address] Dr. Karlo Beltre HbA1c (Bld) [Mass fraction] 5.7 % Normal 4.5-6.2 [facility] Comment on above: Performed By: #### A 1C #### [facility] [address] [place] [address] Dr. Karlo Beltre LIPID PROFILEon 11-25-2021 CHOL-HDL RATIO NORM SEE BELOW Normal [facility] Comment on above: Result Comment: 3.3 - 4.4 LOW RISK 4.4 - 7.1 AVERAGE RISK 7.1 - 11.0 MODERATE RISK >11.0 HIGH RISK Performed By: #### T SH, LIPID, CMP #### [facility] [address] [place] [address] Dr. Karlo Beltre Cholesterol [Mass/Vol] 229 mg/dL Critically high <=200 [facility] Comment on above: Performed By: #### T SH, LIPID, CMP #### [facility] [address] [address] [address] Karlo Beltre Cholesterol in HDL [Mass/Vol] 83 mg/dL Critically high 40-60 [facility] Comment on above: Performed By: #### T SH, LIPID, CMP #### [facility] [address] [address] [address] Karlo Beltre Cholesterol in LDL [Mass/Vol] 132.2 mg/dL Normal [facility] Comment on above: Performed By: #### T SH, LIPID, CMP #### [facility] [facility] [address] [place] [address] Dr. Karlo Beltre Cholesterol.total/Ch olesterol in HDL [Mass ratio] 2.8 {ratio} Normal [facility] Comment on above: Performed By: #### T SH, LIPID, CMP #### [facility] [address] [address] [address] Karlo Beltre HDL NORMAL > or = 60 mg/dl - LOW CARDIOVASCULAR RISK <40 mg/dl - HIGH CARDIOVASCULAR RISK Normal [facility] Comment on above: Performed By: #### T SH, LIPID, CMP #### [facility] [address] [place] [address] Dr. Karlo Beltre LDL CALC NORMAL SEE BELOW Normal [facility] Comment on above: Result Comment: <100 mg/dl OPTIMAL 100 - 129 mg/dl NEAR OR ABOVE OPTIMAL 130 - 159 mg/dl BORDERLINE HIGH 160 - 189 mg/dl HIGH >190 mg/dl VERY HIGH Performed By: #### T SH, LIPID, CMP #### [facility] [address] [address] [address] Karlo Beltre Triglyceride [Mass/Vol] 69 mg/dL Normal <=150 [facility] Comment on above: Performed By: #### T SH, LIPID, CMP #### [facility] [address] [address] [address] Karlo Beltre VLDL CALC 13.8 mg/dL Normal [facility] Comment on above: Performed By: #### T SH, LIPID, CMP #### [facility] [address] [address] [address] Karlo Beltre PROF 14(COMP METB)on 022 Albumin [Mass/Vol] 3.9 g/dL Normal 3.4-5.0 [facility] Comment on above: Performed By: #### T SH, LIPID, CMP #### [facility] [address] [place] [address] Dr. Karlo Beltre Albumin/Globulin [Mass ratio] 1.1 {ratio} Normal [facility] Comment on above: Performed By: #### T SH, LIPID, CMP #### [facility] [address] [place] [address] Dr. Karlo Beltre ALP [Catalytic activity/Vol] 48 U/L Normal 46-116 [facility] Comment on above: Performed By: #### T SH, LIPID, CMP #### [facility] [address] [place] [address] Dr. Karlo Beltre ALT [Catalytic activity/Vol] 20 U/L Normal 14-59 [facility] Comment on above: Performed By: #### T SH, LIPID, CMP #### [facility] [address] [place] [address] Dr. Karlo Beltre Anion gap [Moles/Vol] 12.2 mmol/L Normal [facility] Comment on above: Performed By: #### T SH, LIPID, CMP #### [facility] [address] [place] [address] Dr. Karlo Beltre AST [Catalytic activity/Vol] 13 U/L Critically low 15-37 [facility] Comment on above: Performed By: #### T SH, LIPID, CMP #### [facility] [address] [place] [address] Dr. Karlo Beltre Bilirubin [Mass/Vol] 0.3 mg/dL Normal 0.2-1.0 [facility] Comment on above: Performed By: #### T SH, LIPID, CMP #### [facility] [address] [place] [address] Dr. Karlo Beltre Calcium [Mass/Vol] 9.0 mg/dL Normal 8.5-10.1 [facility] Comment on above: Performed By: #### T SH, LIPID, CMP #### [facility] [address] [place] [address] Dr. Karlo Beltre Chloride [Moles/Vol] 105 mmol/L Normal 98-107 [facility] Comment on above: Performed By: #### T SH, LIPID, CMP #### [facility] [address] [place] [address] Dr. Karlo Beltre CO2 [Moles/Vol] 28.6 mmol/L Normal 21.0-32.0 [facility] Comment on above: Performed By: #### T SH, LIPID, CMP #### [facility] [address] [place] [address] Dr. Karlo Beltre Creatinine [Mass/Vol] 0.77 mg/dL Normal 0.55-1.02 [facility] Comment on above: Performed By: #### T SH, LIPID, CMP #### [facility] [address] [place] [address] Dr. Karlo Beltre EGFR-AF MONTENEGRIN >60 Normal >=60 [facility] Comment on above: Performed By: #### T NOBLE, LIPID, CMP #### [facility] [address] [place] [address] Dr. Karlo Beltre EGFR-NON AF MONTENEGRIN >60 Normal >=60 [facility] Comment on above: Performed By: #### T SH, LIPID, CMP #### [facility] [address] [place] [address] Dr. Karlo Beltre Globulin (S) [Mass/Vol] 3.7 g/dL Normal [facility] Comment on above: Performed By: #### T SH, LIPID, CMP #### [facility] [address] [place] [address] Dr. Karlo Beltre Glucose [Mass/Vol] 95 mg/dL Normal 74-106 [facility] Comment on above: Performed By: #### T SH, LIPID, CMP #### [facility] [address] [place] [address] Dr. Karlo Beltre Potassium [Moles/Vol] 3.8 mmol/L Normal 3.5-5.1 [facility] Comment on above: Performed By: #### T NOBLE LIPID, CMP #### [facility] [address] [place] [address] Dr. Karlo Beltre Protein [Mass/Vol] 7.6 g/dL Normal 6.4-8.2 [facility] Comment on above: Performed By: #### T SH, LIPID, CMP #### [facility] [address] [place] [address] Dr. Karlo Beltre Sodium [Moles/Vol] 142 mmol/L Normal 136-145 [facility] Comment on above: Performed By: #### T NOBLE LIPID, CMP #### [facility] [address] [place] [address] Dr. Karlo Beltre Urea nitrogen [Mass/Vol] 18.0 mg/dL Normal 7.0-18.0 [facility] Comment on above: Performed By: #### T NOBLE LIPID, CMP #### [facility] [address] [place] [address] Dr. Karlo Beltre Urea nitrogen/Creatinine [Mass ratio] 23.4 mg/mg Normal [facility] Comment on above: Performed By: #### T NOBLE LIPID, CMP #### [facility] [address] [place] [address] Dr. Karlo Beltre TSHon 11-25-2021 TSH 0.775 uIU/mL Normal 0.358-3.740 [facility] Comment on above: Performed By: #### T SH, LIPID, CMP #### [facility] [address] [place] [address] Dr. Karlo Beltre TSH RANGE SEE BELOW Normal [facility] Comment on above: Result Comment: <0.3 4 UIU/ml HYPERTHYROID 0.34-5.60 UIU/ml EUTHYROID >5.60 UIU/ml HYPOTHYROID Performed By: #### T NOBLE LIPID, CMP #### [facility] [address] [place] [address] Dr. Karlo Beltre XR DEXA BONE DENSITYon [...] [facility] Outside Colonoscopyon 2020 Outside Colonoscopy [id number] #1.00CD:127 Normal [facility] Lab Reportson 12-31-2020 Lab Reports [id number] #1.00CD:127 Normal [facility] Consent for Procedure/Surger yon 12-04-2020 Consent for Procedure/Surgery [id number] #1.00CD:127 Normal [facility] [place] Letter [facility] December 04, 2020 RYAN JIN, [address] [place] [address] Re: JEANNE ANNA Date of : 1970 Thank you for your referral of Jeanne Anna who was seen on consultation on December 03, 2020, for screening colonoscopy. I have enclosed my consultation notes for your review, and I will be happy to follow Jeanne. Sincerely, Patricio Drew MD General Surgery [facility] Ambulatory Clinical Summaryo n 12-03-2020 Ambulatory Clinical Summary {[id number]}CD:[id number] Normal [facility] General Surgery Office/Clini c Noteon 12-03-2020 General Surgery Office/Clinic Note Chief Complaint Consult for Colonoscopy HPI Staff 50 year old female referred by Dr. Jin for Screening Colonoscopy. Previous colonoscopy completed 16 years ago at [facility] by Dr Forte. No family history [...] Status S (more content not included)... Normal [facility] Comment on above: Result Comment: Elec tronically Signed By: JOÃO ROMERO, Patricio Mcwilliams\Date and Time Signed: 12/03/20 15:24 EDT Patient [...] ? Medicines taken, including vitamins, herbs, eyedrops, ceal-qao-kzaojks medicines, and creams. ? Use of steroids [...] medicines have worn off. ? Only take zzuc-yre-jnajdom or prescription medicines for pain, discomfort, or [...] Document Reviewed: 01/31/2009 ExitCare? Patient Information ?2013 [employer] [facility]. Physical Medicine and Rehabilitation Exercising to Lose [...] week of vig (more content not included)... [facility] Physician Referralon 021 Physician Referral [id number] #1.00CD:127 [facility] Sherri 09-04-2019 ANNIEN Telephone (NEADFV) JEANNE ANNA ([id number]) 1970 F Date Time Provider Department 09/04/19 MIMI STACY During your visit today, we recorded the following information about you: Vickey Schilling 09/04/2019 2:11 PM Signed Received outside medical records from [facility]. Scanned into patient's chart. Mimi Stacy MD 10/23/2019 10:53 AM Signed Tried calling numerous times no answer. Left a message to call back if she still wants to do phone encounter Deisy Salas SALGADO 10/24/2019 9:19 AM Signed Called patient no answer . Left voice mail. Allergies As of Date: 09/04/2019 (Not on File) Date Reviewed: Never Reviewed Reason for Visit: Appointment [186] Reason For Visit History Recorded Problem List As Of Date: 09/04/2019 (None) Encounter Status:Closed by VICKEY BELL on 03/25/20 [facility] QuantiFERON TB Gold (In Tube ) LCon 01-11-2019 QuantiFERON Criteria LC Comment [facility] Comment on above: Result Comment: The QuantiFERON-TB Gold Plus result is determined by subtracting the Nil value from either TB antigen (Ag) tube. The mitogen tube serves as a control for the test. Performed By: #### 4 [id number], [id number] #### [facility] (DEFAULT) [address] [place] [address] QuantiFERON Mitogen Value 3.65 IU/mL [facility] Comment on above: Result Comment: Perf ormed At: [facility] [id number] Jerman Villagran PhD Ph:[phone] Performed By: #### 4 [id number], [id number], [id number] #### [facility] (DEFAULT) [address] [place] [address] QuantiFERON Nil Value LC 0.07 IU/mL [facility] Comment on above: Performed By: #### 4 [id number], [id number], [id number] #### [facility] (DEFAULT) [address] [place] [address] QuantiFERON TB1 Ag Value LC 0.10 IU/mL [facility] Comment on above: Performed By: #### 4 [id number], [id number], [id number] #### [facility] (DEFAULT) [address] [place] [address] QuantiFERON TB2 Ag Value LC 0.09 IU/mL [facility] Comment on above: Performed By: #### 4 [id number], [id number], [id number] #### [facility] (DEFAULT) [address] [place] [address] QuantiFERON-TB Gold Plus LCo n 01-11-2019 QuantiFERON-TB Gold Plus LC Negative Negative [facility] Comment on above: Result Comment: Perf ormed At: [address] [id number] Jerman Villagran PhD Ph:[phone] Performed By: #### 4 [id number], [id number], [id number] #### [facility] (DEFAULT) [address] [place] [address] QuantiFERON Incubation LC Comment [facility] Comment on above: Result Comment: [facility] orp received incubated specimen. Performed At: [address] [id number] Jerman Villagran PhD Ph:[phone] Performed By: #### 4 [id number], [id number], [id number] #### [facility] (DEFAULT) [address] [place] [address] Lab - Toxicology Resultson 0 01-10-2019 Lab - Toxicology Results [id number] 1.00OTGTIFF Normal [facility] Measles/Mumps/Rubella Immuni ty LCon 01-09-2019 Mumps Abs, IgG LC 42.7 AU/mL Immune >10.[address] [facility] Comment on above: Result Comment: Nega tive <9.0 Equivocal 9.0 - 10.9 Positive >10.9 A positive result generally indicates past exposure to Mumps virus or previous vaccination. Performed At: [address] [id number] Jerman Villagran PhD Ph:[phone] Performed By: #### 4 [id number], [id number], [id number] #### [facility] (DEFAULT) [address] [place] [address] Rubella Antibodies, IgG LC <0.90 Low Immune >0.99 [facility] Comment on above: Result Comment: Non- immune <0.90 Equivocal 0.90 - 0.99 Immune >0.99 Performed By: #### 4 [id number], [id number], [id number] #### [facility] (DEFAULT) [address] [place] [address] Rubeola Ab, IgG, EIA LC <25.0 Low Immune >29.9 [facility] Comment on above: Result Comment: Nega tive <25.0 Equivocal 25.0 - 29.9 Positive >29.9 Presence of antibodies to Rubeola is presumptive evidence of immunity except when acute infection is suspected. Performed By: #### 4 [id number], [id number], [id number] #### [facility] (DEFAULT) [address] [place] [address] Nicotine Metabolite, Urine L Con 01-09-2019 Cotinine LC Negative Nhhhpk=440 [facility] Comment on above: Result Comment: Perf ormed At: [facility] [address] [facility] ([place], [place]), [place] [id number] Bree Douglas PhD Ph:[phone] Performed By: #### 1 [id number] #### [facility] (DEFAULT) [address] [place] [address] Vital Signs Date Time Vital Sign Value Performing Clinician Facility 06-04-2023 10:00-0500 Body height 158.75 cm Ryan Jin Other [facility] 06-04-2023 10:00-0500 Body mass index (BMI) [Ratio] 30.74 kg/m2 Ryan Ball Other [facility] Other 06-04-2023 10:00-0500 Body weight 77.47 kg Ryan Ball Other [facility] Other 06-04-2023 10:00-0500 Diastolic blood pressure 83 mm[Hg] Ryan Ball Other [facility] Other 06-04-2023 10:00-0500 Respiratory rate 12 /min Ryan Ball Other [facility] Other 06-04-2023 10:00-0500 Systolic blood pressure 125 mm[Hg] Ryan Ball Other [facility] Other 02-04-2023 11:56-0400 Body height 158.75 cm Ryan Ball Other [facility] Other 02-04-2023 11:56-0400 Body mass index (BMI) [Ratio] 31.13 kg/m2 Ryan Ball Other [facility] Other 02-04-2023 11:56-0400 Body weight 78.47 kg Ryan Ball Other [facility] Other 02-04-2023 11:56-0400 Diastolic blood pressure 74 mm[Hg] Ryan Ball Other [facility] Other 02-04-2023 11:56-0400 Systolic blood pressure 115 mm[Hg] Ryan Ball Other [facility] Other 01-07-2023 15:52-0400 Body height 158.75 cm Ryan Ball Other [facility] Other 01-07-2023 15:52-0400 Body mass index (BMI) [Ratio] 31.49 kg/m2 Ryan Ball Other [facility] Other 01-07-2023 15:52-0400 Body weight 79.38 kg Ryan Ball Other [facility] Other 01-07-2023 15:52-0400 Diastolic blood pressure 82 mm[Hg] Ryan Ball Other [facility] Other 01-07-2023 15:52-0400 Systolic blood pressure 118 mm[Hg] Ryan Ball Other [facility] Other 10-27-2022 13:22-0400 Body height 158.75 cm Ryan Ball Other [facility] Other 10-23-2022 10:00-0400 Body height 158.75 cm Ryan Ball Other [facility] Other 10-23-2022 10:00-0400 Body mass index (BMI) [Ratio] 31.78 kg/m2 Ryan Ball Other [facility] Other 10-23-2022 10:00-0400 Body weight 80.11 kg Ryan Ball Other [facility] Other 10-23-2022 10:00-0400 Diastolic blood pressure 78 mm[Hg] Ryan Ball Other [facility] Other 10-23-2022 10:00-0400 Respiratory rate 12 /min Ryan Ball Other [facility] Other 10-23-2022 10:00-0400 Systolic blood pressure 126 mm[Hg] Ryan Ball Other [facility] Other 10-14-2021 14:45-0400 Body height 158.75 cm Santana Mojicaxa Other [facility] Other 10-14-2021 14:45-0400 Body mass index (BMI) [Ratio] 30.77 kg/m2 Santana Olexa Other [facility] Other 10-14-2021 14:45-0400 Body weight 77.57 kg Santana Olexa Other [facility] Other Encounters Encounter Date Encounter Type Care Provider Facility Start: 10-06-2023 End: 10-07-2023 ambulatory ALAN RAZA MD-MOON Facility:[id number] Start: 08-04-2023 End: 08-04-2023 ambulatory Ryan Jin Other [facility] Start: 08-04-2023 Telephone encounter Ryan BONE [facility] Start: 07-23-2023 End: 07-23-2023 ambulatory Ryan Jin Other [facility] Other Start: 07-23-2023 Telephone encounter Ryan BONE [facility] Start: 06-07-2023 End: 06-08-2023 ambulatory Lon Neumann MD [facility] Start: 06-04-2023 End: 06-04-2023 ambulatory Ryan Jin Other [facility] Other Start: 06-04-2023 Office outpatient vi sit 15 minutes Ryan Jin [facility] Start: 02-05-2023 End: 02-05-2023 Emergency department patient visit Ryan Jin Facility:[facility] Start: 02-04-2023 End: 02-04-2023 ambulatory Ryan Jin Other [facility] Other Start: 02-04-2023 Telephone encounter Ryan BONE [facility] Start: 01-07-2023 End: 01-07-2023 ambulatory Ryan Jin Other [facility] Other Start: 01-07-2023 Telephone encounter Ryan Jin [facility] Start: 10-29-2022 Encounter for genera l adult medical examination without abnormal findings DR RYAN JIN [facility] Start: 10-27-2022 End: 10-27-2022 ambulatory NARENDRANATH LAKSHMIPATHY . [facility] Other Start: 10-27-2022 Telephone encounter Ryan Jin [facility] Start: 10-23-2022 End: 10-24-2022 Encounter for general adult medical examination without abnormal findings Ryan Jin [facility] Start: 10-23-2022 Periodic preventive med est patient 40-64yrs Ryan Jin [facility] Start: 10-23-2022 End: 10-24-[address] RYAN JIN [facility] Start: 10-13-2022 End: 10-14-2022 ambulatory NARENDRANATH LAKSHMIPATHY . Facility:[facility] Start: 09-22-[address] DYLAN CUMMINGS . Faci lity:[facility] Start: 06-30-2022 End: 07-01-[address] RYAN JIN Facility:[facility] Start: 06-22-2022 Adult health examination Ryan Jin Other [facility] Start: 06-04-2022 End: 06-05-[address] RYAN JIN Facility:[facility] Start: 05-24-2022 End: 05-24-2022 ambulatory GALE CARUSO Facility:[facility] Start: 05-20-2022 End: 05-20-2022 ambulatory GALE CARUSO Facility:[facility] Start: 05-14-2022 Gynecological examination normal Ryan Jin Other [facility] Other Start: 05-13-2022 End: 05-13-[address] JOAN HUGGINS Facility:[facility] Start: 04-22-2022 Encounter for preprocedural laboratory examination DR DYLAN CUMMINGS . [facility] Start: 04-21-2022 End: 04-21-[address] RYAN JIN Facility:[facility] Start: 04-17-2022 End: 04-18-[address] DYLAN CUMMINGS . Facility:[facility] Start: 04-17-2022 End: 04-18-2022 Encounter for preprocedural laboratory examination DR DYLAN CUMMINGS . Facility:[facility] Start: 04-14-2022 End: 04-14-[address] RYAN JIN Facility:[facility] Start: 04-10-2022 End: 04-11-[address] DYLAN CUMMINGS . Facility:[facility] Start: 04-07-2022 End: 04-07-2022 ambulatory [facility] Start: 03-26-2022 End: 03-27-[address] RYAN JIN Facility:[facility] Start: 03-05-2022 End: 03-06-[address] RYAN JIN Facility:[facility] Start: 02-11-2022 End: 02-12-2022 ambulatory ROMMEL SALINAS . Facility:[facility] Start: 12-17-2021 End: 01-30-[address] RYAN JIN Facility:[facility] Start: 12-15-2021 End: 12-16-[address] RYAN JIN Facility:[facility] Start: 11-25-2021 Postop follow up vis it related to original px Santana Olexa [facility] Start: 11-25-2021 Telephone encounter Santana Olepatsy [facility] Start: 11-25-2021 End: 11-26-[address] MARIBEL Coffman [facility] [employer] [facility] Other Start: 11-06-2021 End: 11-07-[address] DYLAN CUMMINGS . Facility:[facility] Start: 11-04-2021 End: 11-05-2021 ambulatory SANTANA OLEPATSY Facility:[facility] Start: 10-28-2021 End: 10-28-2021 ambulatory Santana Pandey Other [facility] [employer] [facility] Other Start: 10-28-2021 Postop follow up vis it related to original px Santana Olexa [facility] Start: 10-28-2021 Telephone encounter Santana Olexa [facility] Start: 10-14-2021 End: 10-14-2021 ambulatory Santana Pandey Other [facility] Other Start: 10-14-2021 FQ visit new patient Santana Pandey [facility] Procedures Date Procedure Procedure Detail Performing Clinician [...] [place] 04-25-2021 COVID-19 Sterling blanco Other [facility] Other 08-01-2020 COVID-19 Sterling blanco Other [facility] Other 07-03-2020 COVID-19 Sterling [facility] [employer] Other [facility] Other Payers Date Payer Category [id number] 2022 Unknown 2019 Unknown [id number] . .[id number] 1970 Unknown [id number] .16.84 0.1.781832.3.579.2.593 1970 Unknown [id number] .16.84 0.1.612843.3.579.2.593 1970 Unknown [id number] .16.84 0.1.915009.3.579.2.593 1970 Unknown [id number] 0.1.391203.3.579.2.593 1970 Unknown [id number] 2.16.84 0.1.069596.3.579.2.593 1970 Unknown [id number] 2.16.84 0.1.952873.3.579.2.593 1970 Unknown [id number] 2.16.84 0.1.663242.3.579.2.593 1970 Unknown [id number] 2.16.84 0.1.144663.3.579.2.593 1970 Unknown [id number] 2.16.84 0.1.135745.3.579.2.593 1970 Unknown [id number] .16.84 0.1.986045.3.579.2.593 1970 Unknown [id number] 2.16.84 0.1.040934.3.579.2.593 1970 Unknown [id number] 2.16.84 0.1.015655.3.579.2.593 1970 Unknown [id number] 2.16.84 0.1.311616.3.579.2.593 1970 Unknown [id number] .16.84 0.1.715824.3.579.2.593 1970 Unknown [id number] .16.84 0.1.745697.3.579.2.593 1970 Unknown [id number] 2.16.84 0.1.072320.3.579.2.593 1970 Unknown [id number] 2.16.84 0.1.581680.3.579.2.593 1970 Unknown [id number] 2.16.84 0.1.830740.3.579.2.593 1970 Unknown [id number] 2.16.84 0.1.436928.3.579.2.593 1970 Unknown [id number] 2.16.84 0.1.309983.3.579.2.593 1970 Unknown [id number] 2.16.84 0.1.184004.3.579.2.593 1970 Unknown [id number] 2.16.84 0.1.927959.3.579.2.593 1970 Unknown [id number] 2.16.84 0.1.812807.3.579.2.593 1970 Unknown [id number] 2.16. 840.1.779384.3.579.2.196 1970 Unknown [id number] 2.16.8 40.1.546174.3.579.2.159 Unknown [id number] 2.16.8 40.1.745006.3.579.2.531 Social History Date Type Detail Facility Sex Assigned At [facility] Other Clinical Notes 10-14-2021 to 08-04-2023 Note Date & Type Note Facility 08-04-2023 Evaluation note Encounter Date Diagnosis Assessment Notes Jul, Other obesity due to excess calories (ICD-10 - E66.09) Jul, Body mass index [BMI] 30.0-30.9, adult (ICD-10 - Z68.30) [facility] 12-01-2023 Evaluation note* Encounter Date Diagnosis Assessment Notes Treatment Notes Treatment Clinical Notes Jun, Palpitation (ICD-10 - R00.2) Avoid [...] disorder, not otherwise specified (ICD-10 - F99) [facility] Other 08-03-2023 Evaluation note* Encounter Date Diagnosis Assessment Notes Treatment Notes Treatment Clinical Notes Feb, Other obesity due to excess calories (ICD-10 - E66.09) [facility] Other 07-06-2023 Evaluation note* Encounter Date Diagnosis Assessment Notes Treatment Notes Treatment Clinical Notes Jan, Other obesity due to excess calories (ICD-10 - E66.09) Jan, Body mass index [BMI] 31.0-31.9, adult (ICD-10 - Z68.31) [facility] Other 04-25-2023 Evaluation note* Encounter Date Diagnosis Assessment Notes Treatment Notes Treatment Clinical Notes Oct, Obesity (BMI 30-39.9) (ICD-10 - E66.9) [facility] Other 04-21-2023 Evaluation note* Encounter Date Diagnosis [...] and massage to incorporate stretching and exercise [facility] Other 04-11-2023 NoteCONSULTATION CONSULTATION DATE: 10/13/2022 TO: Ryan Ball, D.O. HISTORY: Patient returns today complaining of [...] our patients to inform us about any xzjf-tnz-rfntwfv medications or herbal remedies/nutritional supplements/alternative remedies. 2. 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 She [...] may be an additional personal documentation from me.[facility]09-22-2022 Note CONSULTATION CONSULTATION DATE: 03/26/2022 HISTORY [...] Flexion and extension are painful for her. 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 [...] like to move forward, and she will [facility]09-01-2022 NotePROCEDURE: XR HIP LT 2 3V W PELVIS HISTORY: Pain of left hip joint ; hamstring tear COMPARISON: None. FINDINGS: BONES:No fracture, acute abnormality, or significant arthropathy. SOFT TISSUES:No visible soft tissue swelling. EFFUSION:None visible. OTHER: Negative. IMPRESSION: 1. Normal appearance of left hip joint. Electronically authenticated by: BYRON LEE Date: 2022-03-05 13:30[facility] [id number] NoteCONSULTATION CONSULTATION DATE: 02/11/2022 This is a [...] to the plan of care.[facility] 11-25-2021 NotePROCEDURE: XR WRIST RT 2V [...] routine healing, subsequent encounter (ICD-10 - S52.591D) [facility] Other 05-24-2022 Evaluation note* Encounter Date Diagnosis [...] appearance of the wrists. Call with questions/concerns. [facility] Other 05-05-2022 NoteCONSULTATION CONSULTATION DATE: 11/07/2021 This [...] The patient agrees with plan of care. [facility] Signed and Approved by: ROMEML SALINAS . 11/12/2021 14:04:00[facility]04-26-2022 [...] would like to see x-rays next week. 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 Patient to be off work from now through 10/19/21. May return 10/20 with the restriction of no using the right hand for work more than 2 lbs. May use the left hand unrestricted. May work up to 6 hours per day. Oct, Other Patient will ob tain [facility] at [facility] in [facility] week, and call our office to inform done. If fracture has displaced, may consider surgical intervention. If fracture appears to still be stable, we will recheck in [place] office the following week. [facility] Other Evaluation noteNo InformationNortKarmaKey Other History general Narrative - Reported* Type Description Date Medical History DDD Surgical History CTS Surgical History hysterectomy Surgical History appendectomy Surgical History oophorectomy Surgical History laparoscopy Surgical History wisdom teeth Surgical History colonoscopy Surgical History back ablasions Hospitalization History see above [facility] Other History general Narrative - Reported* Type [...] History back ablasions Hospitalization History see above [facility] Other Summary Purpose Family History No Family [...] section and content) DATE CREATED AUTHOR 01/11/2019 [facility] DATE CREATED AUTHOR AUTHOR'S ORGANIZ ATION 03/25/2020 [facility] DATE CREATED AUTHOR AUTHOR'S ORGANIZ ATION 01/09/2021 [facility] DATE CREATED AUTHOR AUTHOR'S ORGANIZ ATION 04/10/2022 [facility] DATE CREATED AUTHOR AUTHOR'S ORGANIZ ATION 10/30/2022 [facility] DATE CREATED AUTHOR AUTHOR'S ORGANIZ ATION 02/17/2023 [facility] DATE CREATED AUTHOR AUTHOR'S ORGANIZ ATION 06/18/2023 [facility] DATE CREATED AUTHOR AUTHOR'S ORGANIZ ATION 10/07/2023 [facility] REASON FOR VISIT (unrecogniz ed section and content) Right Wrist InjuryRecheck Ri ght Wristxray orderxraysRecheck Right WristWellnessLab ResultsNo Informationweight checkRe-Send AdipexBP RUNNING HIGHERmamm resultsWeight loss FOR RECORDS PERTAINING TO PATIENTS WHO ARE [...] BE BASED ON THE PRIMARY CLINICAL RECORDS. [facility]. provides no warranty or guarantee of the accuracy or completeness of information in this document.
[2024-02-18 09:01] LABS: Estimated Average Glucose 105 mg/dL; Glycohemoglobin A1C 5.3 % (4.5-6.2)
[2024-02-18 09:17] LABS: Basophils Absolute Auto 0.1 10^3/uL (0.0-0.1); Basophils Percent Auto 1.3 % (0.2-2.0); Eosinophils Absolute Auto 0.1 10^3/uL (0.0-0.7); Eosinophils Percent Auto 2.5 % (0.9-7.0); Hematocrit 40.1 % (36.0-48.0); Hemoglobin 13.5 g/dL (12.0-16.0); Immature Granulocytes Abs Auto 0.01 10^3/uL (0.00-0.03); Immature Granulocytes Pct Auto 0.2 % (0.0-0.5); Lymphocytes Percent Auto 36.1 % (20.5-60.0); Mean Corpuscular HGB Conc 33.7 g/dL (29.9-35.2); Mean Corpuscular Hemoglobin 29.8 pg (26.7-34.0); Mean Corpuscular Volume 88.5 fL (81.0-99.0); Mean Platelet Volume 9.7 fL (9.5-13.5); Monocytes Absolute Auto 0.4 10^3/uL (0.3-0.8); Monocytes Percent Auto 7.7 % (1.7-12.0); Neutrophils Absolute Auto 2.9 10^3/uL (1.4-6.5); Neutrophils Percent Auto 52.2 % (43.0-75.0); Platelet Count 211 10^3/uL (150-450); Red Blood Count 4.53 10^6/uL (4.20-5.40); Red Cell Distribution Width 13.1 % (11.0-15.0); White Blood Count 5.6 10^3/uL (4.0-11.0)
[2024-02-18 10:22] LABS: Anion Gap 12.8; Carbon Dioxide 26.6 mmol/L (21.0-32.0); Chloride 106 mmol/L (98-107); Glucose 85 mg/dL (74-106); Potassium 4.4 mmol/L (3.5-5.1); Sodium 141 mmol/L (136-145)
[2024-02-18 10:23] LABS: Alanine Aminotransferase 18 U/L (14-59); Albumin Globulin Ratio 1.2; Alkaline Phosphatase 47 U/L (46-116); Aspartate Amino Transferase 14 U/L (15-37); Bilirubin Total 0.5 mg/dL (0.2-1.0); Calcium 9.4 mg/dL (8.5-10.1); Cholesterol 248 mg/dL (<=200); Estimated GFR (African America >60 (>=60); Estimated GFR (Non-African Ame >60 (>=60); Globulin 3.4 g/dL; HDL Cholesterol 83 mg/dL (40-60); Total Protein 7.4 g/dL (6.4-8.2); Triglycerides 72 mg/dL (<=150); VLDL CHOLESTEROL 14.4 mg/dL
[2024-02-18 10:24] LABS: Thyroid Stimulating Hormone 0.974 uIU/mL (0.358-3.740)
== END 2024-02-18 08:18 | disposition home or self-care (01) ==
LOC: LAB 08:19
PROVIDERS: PCP Internal Medicine; Visit Provider Internal Medicine
DX: Z00.00 Encounter for general adult medical examination without abnormal findings (principal)
CPT/HCPCS: 36415; 80053; 80061; 83036; 84443; 85025

== ENCOUNTER 2025-02-15 06:49 | Outpatient (OUT) | payer BC, SELFPAY ==
--- OUTSIDE RECORDS SUMMARY | 2023-08-23 14:00 | XMS_ITS | Continuity of Care Document ---
Author Organization 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, [address], [place], [id number], tel:[phone] [facility] No Information Marybeth Valderrama. [address], [place], [id number], . tel:[phone] Family History Family Member Type Diagnosis Age At Onset No Information Immunizations Vaccine Date Status Comments Spikevax 12y+ administered Source: New Im munization Record Payers Payer name Insurance type Covered green party ID Authoriza tion(s) [place] [employer] [id number] [place] [employer] [id number] Social History Type Description Quantity Date Captured Comments Alcohol Use Details Unknown Caffeine Use Details Unknown Tobacco Use Status No Information Smoking Status No Information Sex Female Sexual Orientation Straight or heterosexual Gender Identity Female Chief Complaint And Reason For Visit No Information Reason For Referral Reason For Referral No Information Plan Of Treatment Date Type Action Status Goal FOBT. Due on due Goal Hep A. Due on du e Goal FIT. Due on due Goal Zoster vaccine (). Due on due Goal PRAPARE ASSESSMENT. Due on due Goal Tdap Vaccine. Due on 2023 due Goal Tdap. Due on due Goal Depression screening. Due on due Goal Colonoscopy. Due on due Goal Unhealthy drug use screening . Due on due Goal FIT-DNA. Due on due Goal Hepatitis C screening. Due o n due Goal Mammogram. Due on due Goal CT-Colonography. Due on due Goal Influenza vaccine. Due on due Goal Lipid panel. Due on due Goal HPV. Due on due History Of Present Illness Encounter Date Complaint History Of Prese nt Illness No Information Functional Status Date Functional Assessmen t No Information Instructions Date Instruction Additional Infor mation No Information Assessments Type Assessment Date No Information Patient Care Teams Name Effective Dates (start - stop) Status Members No Information
--- OUTSIDE RECORDS SUMMARY | 2025-02-15 06:53 | XMS_ITS | Clinical Summary ---
Author Organization [facility] Address [address] [place] [id number] Care Team Providers Care Plant Security Guard Name Role Phone Unavailable Primary Care Provider Unavailabl e Allergies Active Allergy Reactions Criticality Noted Date Comments Lisinopril Cough 12/24/2022 Medications * This document contains information received from the source organization and may not represent a complete record from that organization. traMADol (ULTRAM) 50 mg tablet Take 50 mg by mouth every 6 hours as needed for pain. Active nabumetone (RELAFEN) 500 mg tablet Take 500 mg by mouth twice daily. Active Social History Tobacco Use Types Packs/Day Years Used Date Smoking Tobacco: Never Assessed Area Deprivation Index Answer Date Norbert rded National Score (1-100), lower number is lower ri sk 78 12/24/2022 State Score (1-10), lower number is lower risk 6 12/24/2022 Data from: https://www.neighborhoodatlas.medicine.[facility].edu/. Last address used for calculation Marily BURRELL 12/24/2022 Comments Unknown Sex and Gender Information Value Date Recorded Sex Assigned at Not on file Legal Sex Female 10:34 AM EST Gender Identity Female 09/20/2024 10:29 AM EDT Sexual Orientation Straight 09/20/2024 10 :29 AM EDT Last Filed Vital Signs Vital Sign Reading Time Taken Comments Blood Pressure 124/81 04/05/2020 4:06 PM EDT Pulse 72 04/05/2020 4:06 PM EDT Temperature - - Respiratory Rate - - Oxygen Saturation - - Inhaled Oxygen Concentration - - Weight 74.8 kg (165 lb) 12/24/2022 9:34 AM EDT Height 160 cm (5' 3 ) 12/24/2022 9:34 AM EDT Body Mass Index 29.23 12/24/2022 9:34 AM EDT Plan of Treatment Health Maintenance Due Date Last Done Comments Anxiety Screening 1987 Depression Screening 1987 HIV Screening 1987 Hepatitis C Screening 1987 DTaP,Tdap,Td Vaccine (1 - Tdap) 1988 Hepatitis B Vaccine (1 of 3 - 19+ 3-dose series) 1988 Cervical Cancer Screening [address] Colonography 2014 Cologuard (FIT-DNA) 2014 Colonoscopy 2014 Colorectal Cancer Screening 2014 Diabetes Screening 2014 Fecal Occult Blood 2014 Lipid Screening 2014 Sigmoidoscopy 2014 Pneumococcal Vaccine: 50+ (1 of 1 - PCV) 2019 Shingrix Vaccine (1 of 2) 2019 Influenza Vaccine (#1) 2025 9, 04/19/2018, 04/30/2009 Insurance
--- OUTSIDE RECORDS SUMMARY | 2025-02-15 06:53 | XMS_ITS | Clinical Summary ---
Author Organization [facility] Address [address] [place] [address] Care Team Providers Care Transformer Tester Name Role Phone Ryan Jin DO Primary Care Provider [phone] Allergies Active Allergy Reactions Criticality Noted Date Comments Carvedilol Unknown 11/11/2021 Lisinopril Cough 11/11/2021 Medications acetaminophen-co deine (Tylenol w/ Codeine #3) 300-30 mg tablet every 6 (six) hours. Active oxyCODONE-acetam inophen (Percocet) 5-325 mg tablet every 6 (six) hours. Active traMADol (Ultram) 50 mg tablet 1 (one) time each day at the same time. Active Social History Tobacco Use Types Packs/Day Years Used Date Smoking Tobacco: Never Assessed [place] Safety & Environment Answer Date Rec orded Fear of Current or Ex-Partner Not on file Emotionally Abused Not on file 08/26/2023 Physically Abused Not on file 08/26/2023 Sexually Abused Not on file 08/26/2023 Physically or Sexually Abused Not on file Comments Unknown Sex and Gender Information Value Date Recorded Sex Assigned at Not on file Legal Sex Female 2:38 PM EDT Gender Identity Not on file Sexual Orientation Not on file Plan of Treatment Health Maintenance Due Date Last Done Comments CT Colonography 1969 Colonoscopy 1969 Colorectal Cancer Screening 1969 FIT-DNA 1969 FIT 1969 FOBT 1969 Sigmoidoscopy 1969 Depression Screening 1981 Hepatitis B Vaccines (1 of 3 - 19+ 3-dose series) 1988 Pap Smear 1990 Adult Tetanus 1991 Cervical Cancer Screening 1999 HPV/Cotest 1999 Mammogram 2009 Zoster Vaccines (1 of 2) 2019 Influenza Vaccine (#1) 2025 8, 04/30/2009 HIB Vaccines Aged Out No longer eligi ble based on patient's age to complete this topic HPV Vaccines Aged Out No longer eligi ble based on patient's age to complete this topic IPV Vaccines Aged Out No longer eligi ble based on patient's age to complete this topic Meningococcal B Vaccine Aged Out No l onger eligible based on patient's age to complete this topic Meningococcal Vaccine Aged Out No mayito raffi eligible based on patient's age to complete this topic Pneumococcal Vaccine: Pediatrics (0 to 5 Years) and At-Risk Patients (6 to 64 Years) Aged Out No longer eligible b ased on patient's age to complete this topic Rotavirus Vaccines Aged Out No longer eligible based on patient's age to complete this topic Insurance [employer] Care Teams Transformer Tester Relationship Specialty Start Date End Date Ryan Jin DO [address] [place] [id number] PCP - General 04/07/22
--- OUTSIDE RECORDS SUMMARY | 2025-02-15 06:53 | XMS_ITS | Clinical Summary ---
Author Organization [facility] Address [address] [place] [address] Care Team Providers Care Accordion Maker Name Role Phone Unavailable Primary Care Provider Unavailabl e Social History Tobacco Use Types Packs/Day Years Used Date Smoking Tobacco: Never Assessed Comments Unknown Sex and Gender Information Value Date Recorded Sex Assigned at Not on file Legal Sex Female 7:29 PM EDT Gender Identity Not on file Sexual Orientation Not on file Last Filed Vital Signs Vital Sign Reading Time Taken Comments Blood Pressure 128/80 06/21/2018 12:00 PM EST Pulse - - Temperature - - Respiratory Rate - - Oxygen Saturation - - Inhaled Oxygen Concentration - - Weight 74.4 kg (164 lb) 11/11/2021 12:00 PM EDT Height 160 cm (5' 3 ) 11/11/2021 12:00 PM EDT Body Mass Index 29.05 11/11/2021 12:00 PM EDT Plan of Treatment Not on file
--- OUTSIDE RECORDS SUMMARY | 2025-02-15 06:54 | XMS_ITS | CCD ---
Author Organization [facility] CliniSyin Care Team Providers Care Loss Claim Clerk Name Role Phone Dannie, Santana Unavailable PARISH GALDAMEZ Attending Unavailable Davin, Ryan Unavailable GALE CARUSO Consulting Unavailable SHADY, GALE Admitting Unavailable SHADY, GALE Attending Unavailable BALL, DR DAVIS Primary Care Unavailable LAKSHMIPATHY ., ZACHERY Attending Gabriela vailable LAKSHMIPATHY ., ZACHERY Admitting Gabriela vailable LAKSHMIPATHY ., ZACHERY Consulting Gabriela vailable DAVIN, DR DAVIS Primary Care Unavailable DAVIN, DR DAVIS Primary Care Unavailable CUMMINGS ., DR DYLAN Gandhi Consulting Unavailable CUMMINGS ., DR DYLAN Gandhi Attending Unavailable CUMMINGS ., DR DYLAN Gandhi Admitting Unavailable ENDYREYNOLD Consulting Unavailable BALL, DR DAVIS Consulting Unavailable DAVIN, DR DAVIS Primary Care Unavailable DAVIN, DR DAVIS Admitting Unavailable BALL, DR DAVIS Attending Unavailable BALL, DR DAVIS Primary Care Unavailable BALL, DR DAVIS Consulting Unavailable DAVIN, DR DAVIS Admitting Unavailable BALL, DR DAVIS Attending Unavailable ZIEBER, DR BYRON Austin Consulting Unavailable DAVIN, DR DAVIS Primary Care Unavailable CUMMINGS ., DR DYLAN Gandhi Attending Unavailable SALINAS .ROMMEL Consulting Unavailable CUMMINGS ., DR DYLAN Gandhi Admitting Unavailable BALL, DR DAVIS Primary Care Unavailable SALINAS .ROMMEL Consulting Unavailable CUMMINGS ., DR DYLAN Gandhi Attending Unavailable CUMMINGS ., DR DYLAN Gandhi Admitting Unavailable OLEXA, SANTANA Attending Unavailable OLEXA, SANTANA Admitting Unavailable OLEXA, SANTANA Consulting Unavailable DAVIN, DR DAVIS Primary Care Unavailable CARRILLOMICHOACANO Consulting Unavailable CUMMINGS ., DR DYLAN Gandhi Consulting Unavailable BALL, DR DAVIS Primary Care Unavailable CUMMINGS ., DR DYLAN Gandhi Admitting Unavailable CUMMINGS ., DR DYLAN Gandhi Attending Unavailable CUMMINGS ., DR DYLAN Gandhi Consulting Unavailable CUMMINGS ., DR DYLAN Gandhi Attending Unavailable CUMMINGS ., DR DYLAN Gandhi Admitting Unavailable BALL, DR DAVIS Primary Care Unavailable SHADY, GALE Consulting Unavailable [...] Unavailable OLEXA, SANTANA Attending Unavailable BALL, DR DAVIS Primary Care Unavailable OLEXA, SANTANA Consulting Unavailable LAKSHMIPATHY ., ZACHERY Admitting Gabriela vailable LAKSHMIPATHY ., ZACHERY Attending Gabriela vailable DAVIN, DR DAVIS Primary Care Unavailable BALL, DR DAVIS Primary Care Unavailable OLEXA, SANTANA Admitting Unavailable OLEXA, SANTANA Attending Unavailable HUGGINS, DR JOAN Black Consulting Unavailable HUGGINS, DR JOAN Black Attending Unavailable HUGGINS, DR JOAN Black Admitting Unavailable DAVIN, DR DAVIS Primary Care Unavailable LAKSHMIPATHY ., NARTALYA Admitting Gabriela vailable LAKSHMIPATHY ., ZACHERY Attending Gabriela vailable DAVIN, DR DAVIS Primary Care Unavailable Davin, Ryan Primary Care Unavailable Santana Barr Jr Attending Unavailable Santana Barr Jr Admitting Unavailable Nel ROMERO, Lon Duque Attending Unavailable LUZ MARINA ROMERO-MOON, ALAN Attending Unav ailable Ryan Jin DO Primary Care Provider Ryan Jin DO Attending Provider Allergies Allergy Classification Reported Allergen(s) Allergy Type Date of Onset Reaction(s) Facility (15 sources) Ketoprofen Drug Allergy rash [facility] (16 sources) Lisinopril; Translations: [LISINOPRIL] Drug Allergy cough [facility] Repository (15 sources) methylPREDNISolone Drug Allergy elevated BP [facility] (1 source) carvedilol; Translations: [CARVEDILOL] Drug Allergy [facility] Repository (1 source) Amino Acids Drug Allergy [facility] Repository (1 source) Ketoprofen Drug Allergy [facility] (1 source) venlafaxine Drug Allergy [facility] Repository (7 sources) venlafaxine Drug Allergy Unknown, Unknown Reaction [facility] (2 sources) patient allergy list reviewed by nurse or physicia Propensity to adverse reactions 019 Comment:Done Center'd Other (2 sources) Allergies Reconciled Propensity to adverse reactions Unknown Center'd Other Medications Current Medications Medication Drug Class(es) [...] (13 sources) Muscle Relaxant Flexeril Not-Gamal ing LORazepam 0.5 mg oral tablet (3 sources) Benzodiazepine Start: 06-04-2023 take 1 tablet by mouth every twenty-four hours LORazepam 0.5 MG 1 tablet at bedtime as needed Orally Once a day for 30 days Jun, Active [place] (No Known Home Meds) (1 source) Start: 04-26-2024 [place] (No Known Home Meds) Active April 26, 2024 12:00am phentermine hydrochloride 37.5 mg oral tablet (5 sources) Sympathomimetic Amine Anorectic Start: 12-27-2024 take 1 tablet by mouth once daily 30 minutes after breakfast Phentermine (Adipex-P) 37.5 mg tablet Active 37.5 MG PO Daily December 27, 2024 12:00am must administer 30 minutes before or 1-2 hours after breakfast Complies with drug therapy Start: 02-04-2023 take 1 tablet by kelly th once [...] a day for 28 days Oct, Active Tirzepatide (Weight Loss) (1 source) Start: 02-06-2025 Tirzepatide (Weight Loss) (Zepbound) 2.5 mg/0.5 mL pen injector Active 2.5 MG SUBCUT every week 09 01February 06, 2025 12:00am for 4 weeks Complies with drug therapy valACYclovir 1000 mg oral tablet (8 sources) [...] Subcutaneous weekly for 30 days Jul, Active Completed/Discontinued Medications Medication Drug Class(es) Dates Sig (Normalized) Sig (Original) amoxicillin 875 mg / clavulanate 125 mg oral tablet (2 sources) Penicillin-class Antibacterial Start: 12-27-2024 End: 02-06-2025 take 1 tablet by mouth every twelve hours Amoxicillin-Pot Clavulanate 875-125 mg tablet Discontinued 1 TAB PO Every 12 hours 23 04December 27, 2024 12:00am February 06, 2025 2:51pm escitalopram 5 mg oral tablet (6 sources) Serotonin Reuptake Inhibitor Start: 04-26-2024 End: 04-26-2024 take 1 tablet by mouth once at bedtime Escitalopram Oxalate 5 mg tablet Discontinued MG PO April 26, 2024 12:00am April 26, 2024 10:14am FreeTextSi tablet Orally q HS; Note: Source Status: Taking; Refills: 5; Provider: Davin Black Start: 04-26-2024 End: 04-26-2024 take 1 tablet by mouth once at bedtime Escitalopram Oxalate Discontinued MG PO April 26, 2024 12:00am April 26, 2024 10:14am FreeTextSi tablet Orally q HS; Note: Source Status: Taking; Refills: 5; Provider: Davin Black take 1 tablet by kelly th once at bedtime Escitalopram Oxalate 5 MG 1 tablet Orally q HS for 30 days Active 24 hr metoprolol succinate 25 mg extended release oral tablet (6 sources) beta-Adrenergic Argenis Start: 04-26-2024 End: 04-26-2024 take 1 tablet by mouth once daily Metoprolol Succinate 25 mg tablet extended release 24 hr Discontinued 25 MG PO Daily April 26, 2024 12:00am April 26, 2024 10:14am Start: 06-04-2023 take 1 tablet by kelly th every twenty-four hours Metoprolol Succinate ER 25 MG 1 tablet Orally Once a day for 30 days Jun, Active nabumetone 500 mg oral tablet (16 sources) Nonsteroidal Anti-inflammatory Drug Start: 04-26-2024 End: 04-26-2024 take 1 tablet by mouth twice daily Nabumetone 500 mg tablet Discontinued 500 MG PO Twice daily April 26, 2024 12:00am April 26, 2024 10:14am take 1 tablet by mouth every twe lve hours ondansetron 4 mg disintegrating oral tablet (3 sources) Serotonin-3 Receptor Antagonist Start: 02-05-2023 End: 04-26-2024 take 1 tablet by mouth every eight hours as needed for nausea and vomiting Ondansetron 4 mg tablet,disintegrating Discontinued 4 MG PO Q8H as needed for nausea and vomiting February 05, 2023 12:00am April 26, 2024 10:14am Semaglutide (Weight Loss) (7 sources) Start: 06-19-2024 End: 06-19-2024 Semaglutide (Weight Loss) 0.25 mg/0.5 mL pen injector Discontinued 0.5 MG SUBCUT every week June 19, 2024 3:58pm June 19, 2024 3:59pm administer weeks 1 through 4 of therapy Start: 04-26-2024 End: 06-19-2024 Semaglutide (Weight Loss) 0. 25 mg/0.5 mL pen injector Discontinued 0.25 MG SUBCUT every week April 26, 2024 12:00am June 19, 2024 3:58pm administer weeks 1 through 4 of therapy Start: 04-26-2024 End: 04-26-2024 inject 0.25 mg by subcutaneous injection every week Semaglutide (Weight Loss) (Wegovy) 0.25 mg/0.5 mL pen injector Discontinued MG SUBCUT April 26, 2024 12:00am April 26, 2024 10:15am FreeTextSi.25mg Subcutaneous weekly; Note: Source Status: Start; Refills: 0; Qty: 4 Each; Provider: Davin Black Semaglutide (Weight Loss) (2 sources) Start: 06-19-2024 End: 06-19-2024 Semaglutide (Weight Loss) 0.5 mg/0.5 mL pen injector Discontinued 0.5 MG SUBCUT every week 2 June 19, 2024 3:59pm June 19, 2024 7:07pm administer weeks 1 through 4 of therapy tiZANidine 4 mg oral tablet (11 sources) Central alpha-2 Adrenergic Agonist Start: 04-26-2024 End: 04-26-2024 take 1 tablet by mouth three times daily Tizanidine 4 mg tablet Discontinued 4 MG PO Three times daily April 26, 2024 12:00am April 26, 2024 10:15am take 1 tablet by mouth every eig ht hours tiZANidine HCl 4 MG 1 tablet as needed Orally Three times a day Active traMADol hydrochloride 50 mg oral tablet (16 sources) Opioid Agonist Start: 04-26-2024 End: 04-26-2024 take 1 tablet by mouth once daily Tramadol 50 mg tablet Discontinued 50 MG PO Daily April 26, 2024 12:00am April 26, 2024 10:15am take 1 tablet by kelly th every twenty-four hours traMADol HCl 50 MG 1 tablet as needed Orally Once a day Active Problems Active Problems Problem Classification Problem Date Documented Date Episodic/Chronic Anxiety disorders (11 sources) Generalized anxiety disorder; Translations: [Generalized anxiety disorder] Chronic Cardiac dysrhythmias (1 source) Palpitations Episodic Diabetes mellitus without complication (18 sources) Impaired fasting glycemia; Translations: [Impaired fasting [...] not otherwise specified] Chronic Nausea and vomiting (4 sources) Nausea with vomiting, unspecified; Translations: [Nausea and vomiting] Onset: 02-05-2023 02-13-2023 Episodic Nonmalignant breast conditions (2 sources) Inflammatory [...] nutritional; endocrine; and metabolic disorders (2 sources) Obesity, unspecified; Translations: [Obesity, unspecified] Chronic Other nutritional; endocrine; [...] Chronic Other nutritional; endocrine; and metabolic disorders (8 sources) Obesity; Translations: [Obesity, unspecified] 04-26-2024 Chronic Other nutritional; endocrine; and metabolic disorders (1 source) Body mass index (BMI) 30.0-30.9, adult Chronic Other screening for suspected conditions (not mental disorders or infectious disease) (11 sources) Encounter for screening mammogram for malignant neoplasm of breast; Translations: [Patient encounter status] Onset: 06-30-2022 Episodic Other skin disorders (2 sources) H/O: skin [...] cough; Translations: [Other specified cough] Onset: 01-09-2016 Unclassified (1 source) Z00.00 - Encounter for general adult medical examination without abnormal findings Viral infection (10 sources) Herpes simplex type [...] [Spasm of muscle] Onset: 10-29-2014 Episodic Other upper respiratory infections (2 sources) [...] Test Name Value Interpretation Reference Range Facility Basophils Auto (Bld) [#/Vol] on 02-18-2024 Basophils (Bld) [#/Vol] 0.1 10 3/uL 0.0-0.1 [facility] Basophils/100 WBC Auto (Bld) on 02-18-2024 Basophils/100 WBC (Bld) 1.3 % 0.2-2.0 [facility] Cholesterol in LDL Calc [Mas s/Vol]on 02-18-2024 Cholesterol in LDL [Mass/Vol] 151.0 mg/dL [facility] Comment on above: <100 mg/dl [id number] 0-129 mg/dl NEAR OR ABOVE [id number] mg/dl BORDERLINE [id number] mg/dl HIGH>190 mg/dl VERY HIGH Cholesterol in VLDL Calc [Ma ss/Vol]on 02-18-2024 Cholesterol in VLDL [Mass/Vol] 14.4 mg/dL [facility] Eosinophils/100 WBC Auto (Bl d)on 02-18-2024 Eosinophils/100 WBC (Bld) 2.5 % 0.9-7.0 [facility] Erythrocyte distribution wid th Auto (RBC) [Ratio]on 02-18-2024 Erythrocyte distribution width (RBC) [Ratio] 13.1 % 11.0-15.0 [facility] Estimated glomerular filtrat ion rate (GFR) non- Americanon 02-18-2024 GFR/1.73 sq M.predicted among non-blacks MDRD (S/P/Bld) [Vol rate/Area] mL/min/{1.73_m2} >=60 [facility] Globulin Calc (S) [Mass/Vol] on 02-18-2024 Globulin (S) [Mass/Vol] 3.4 g/dL [facility] Glucose mean value [Mass/vol ume] in Blood Estimated from glycated hemoglobinon 02-18-2024 Average glucose Estimated from glycated hemoglobin (Bld) [Mass/Vol] 105 mg/dL [facility] Hematocrit Auto (Bld) [Volum e fraction]on 02-18-2024 Hematocrit (Bld) [Volume fraction] 40.1 % 36.0-48.0 [facility] Hemoglobin [Mass/volume] in Bloodon 02-18-2024 Hemoglobin (Bld) [Mass/Vol] 13.5 g/dL 12.0-16.0 [facility] Laboratory - Chemistry and C hemistry - challengeon 02-18-2024 Albumin [Mass/Vol] 4.0 g/dL 3.4-5.0 [facility] ALP [Catalytic activity/Vol] 47 U/L 46-116 [facility] ALT [Catalytic activity/Vol] 18 U/L 14-59 [facility] AST [Catalytic activity/Vol] 14 U/L Low 15-37 [facility] Bilirubin [Mass/Vol] 0.5 mg/dL 0.2-1.0 [facility] Calcium [Mass/Vol] 9.4 mg/dL 8.5-10.1 [facility] Chloride [Moles/Vol] 106 mmol/L 98-107 [facility] Cholesterol [Mass/Vol] 248 mg/dL High <=200 [facility] Cholesterol in HDL [Mass/Vol] 83 mg/dL High 40-60 [facility] Comment on above: > or =60 mg/dl - LOW CARDIOVASCULAR RISK<40 mg/dl - HIGH CARDIOVASCULAR RISK CO2 [Moles/Vol] 26.6 mmol/L 21.0-32.0 [facility] Creatinine [Mass/Vol] 0.84 mg/dL 0.55-1.02 [facility] GFR/1.73 sq M.predicted MDRD (S/P/Bld) [Vol rate/Area] mL/min/{1.73_m2} >=60 [facility] Glucose [Mass/Vol] 85 mg/dL 74-106 [facility] Potassium [Moles/Vol] 4.4 mmol/L 3.5-5.1 [facility] Protein [Mass/Vol] 7.4 g/dL 6.4-8.2 [facility] Sodium [Moles/Vol] 141 mmol/L 136-145 [facility] Triglyceride [Mass/Vol] 72 mg/dL <=150 [facility] TSH Qn 0.974 m[IU]/L 0.358-3.740 [facility] Urea nitrogen [Mass/Vol] 21.0 mg/dL High 7.0-18.0 [facility] Urea nitrogen/Creatinine [Mass ratio] 25.0 mg/mg [facility] Laboratory - Hematology and Cell countson 02-18-2024 HbA1c (Bld) [Mass fraction] 5.3 % 4.5-6.2 [facility] Comment on above: ADA RECOMMENDED LIMI T 4.0 - 6.0ADA THERAPEUTIC TARGET < 7.0ACTION SUGGESTED> 7.0 Immature granulocytes/100 WBC (Bld) 0.2 % 0.0-0.5 [facility] Leukocytes [#/volume] correc duane for nucleated erythrocytes in Blood by Automated counon 02-18-2024 WBC corrected for nucl RBC Auto (Bld) [#/Vol] 5.6 10 3/uL 4.0-11.0 [facility] Lymphocytes Auto (Bld) [#/Vo l]on 02-18-2024 Lymphocytes (Bld) [#/Vol] 2.0 10 3/uL 1.2-3.8 [facility] Lymphocytes/100 WBC Auto (Bl d)on 02-18-2024 Lymphocytes/100 WBC (Bld) 36.1 % 20.5-60.0 [facility] MCH Auto (RBC) [Entitic mass ]on 02-18-2024 MCH (RBC) [Entitic mass] 29.8 pg 26.7-34.0 [facility] MCHC Auto (RBC) [Mass/Vol]on 02-18-2024 MCHC (RBC) [Mass/Vol] 33.7 g/dL 29.9-35.2 [facility] MCV Auto (RBC) [Entitic vol] on 02-18-2024 MCV (RBC) [Entitic vol] 88.5 fL 81.0-99.0 [facility] Monocytes Auto (Bld) [#/Vol] on 02-18-2024 Monocytes (Bld) [#/Vol] 0.4 10 3/uL 0.3-0.8 [facility] Monocytes/100 WBC Auto (Bld) on 02-18-2024 Monocytes/100 WBC (Bld) 7.7 % 1.7-12.0 [facility] Neutrophils Auto (Bld) [#/Vo l]on 02-18-2024 Neutrophils (Bld) [#/Vol] 2.9 10 3/uL 1.4-6.5 [facility] Neutrophils/100 WBC Auto (Bl d)on 02-18-2024 Neutrophils/100 WBC (Bld) 52.2 % 43.0-75.0 [facility] No Panel Informationon 02-17 Eosinophils # (Auto) 0.1 10 3/uL 0.0-0.7 [facility] Immature Granulocyte # (Auto) 0.01 10 3/uL 0.00-0.03 [facility] Platelet mean volume Auto (B ld) [Entitic vol]on 02-18-2024 Platelet mean volume (Bld) [Entitic vol] 9.7 fL 9.5-13.5 [facility] Platelets Auto (Bld) [#/Vol] on 02-18-2024 Platelets (Bld) [#/Vol] 211 10 3/uL 150-450 [facility] RBC Auto (Bld) [#/Vol]on RBC (Bld) [#/Vol] 4.53 10 6/uL 4.20-5.40 [facility] Serum or plasma albumin/glob ulin mass ratioon 02-18-2024 Albumin/Globulin [Mass ratio] 1.2 {ratio} [facility] Serum or plasma anion gap de terminationon 02-18-2024 Anion gap [Moles/Vol] 12.8 mmol/L [facility] Serum or plasma total choles terol/high density lipoprotein (HDL) cholesterol mass cy 02-18-2024 Cholesterol.total/Ch olesterol in HDL [Mass ratio] 3.0 {ratio} [facility] Comment on above: 3.3 - 4.4 LOW RISK4. 4 - 7.1 AVERAGE RISK7.1 - 11.0 MODERATE RISK>11.0 HIGH RISK Complete Blood Count Auto Di ffon 02-05-2023 Basophils (Bld) [#/Vol] 0.0 10*3/uL Normal 0.0-0.2 [facility] Comment on above: Result Comment: PERF ORMED BY: [place] [address] PATHOLOGIST [employer] ENGRAVER HAND ADRIENNE CONTEH M.D. Performed By: #### C BC, CMP #### [facility] [address] [place] [address] Basophils/100 WBC (Bld) 0.3 % Normal . [facility] Comment on above: Performed By: #### C BC, CMP #### [facility] [address] Eosinophils (Bld) [#/Vol] 0.0 10*3/uL Normal 0.0-0.45 [facility] Comment on above: Performed By: #### C BC, CMP #### [address] Eosinophils/100 WBC (Bld) 0.1 % Normal . [facility] Comment on above: Performed By: #### C BC, CMP #### [address] Erythrocyte distribution width (RBC) [Ratio] 12.6 % Normal 11.9-15.3 [facility] Comment on above: Performed By: #### C BC, CMP #### [address] Hematocrit (Bld) [Volume fraction] 38.0 % Normal 34.0-46.4 [facility] Comment on above: Performed By: #### C BC, CMP #### [address] Hemoglobin (Bld) [Mass/Vol] 12.9 g/dL Normal 11.8-15.4 [facility] Comment on above: Performed By: #### C BC, CMP #### [address] Lymphocytes (Bld) [#/Vol] 1.5 10*3/uL Normal 1.00-4.8 [facility] Comment on above: Performed By: #### C BC, CMP #### [address] Lymphocytes/100 WBC (Bld) 13.9 % Normal . [facility] Comment on above: Performed By: #### C BC, CMP #### [address] MCH (RBC) [Entitic mass] 30.7 pg Normal 24.7-34.3 [facility] Comment on above: Performed By: #### C BC, CMP #### [address] MCV (RBC) [Entitic vol] 90.1 fL Normal 80-100 [facility] Comment on above: Performed By: #### C BC, CMP #### [address] Mean Corpuscular HGB Conc 34.1 g/dL Normal 32.0-35.0 [facility] Comment on above: Performed By: #### C BC, CMP #### [address] Monocytes (Bld) [#/Vol] 0.3 10*3/uL Normal 0.0-0.8 [facility] Comment on above: Performed By: #### C BC, CMP #### [address] Monocytes/100 WBC (Bld) 14.63 % Normal 0.00-20.00 [facility] Comment on above: Performed By: #### C BC, CMP #### [address] Monocytes/100 WBC (Bld) 2.8 % Normal . [facility] Comment on above: Performed By: #### C BC, CMP #### [address] Neutrophils (Bld) [#/Vol] 9.0 10*3/uL High 1.8-7.7 [facility] Comment on above: Performed By: #### C BC, CMP #### [address] Neutrophils/100 WBC (Bld) 82.9 % Normal . [facility] Comment on above: Performed By: #### C BC, CMP #### [address] NRBC% 0.1 /100{WBC} Normal 0-0.5 [facility] Comment on above: Performed By: #### C BC, CMP #### [address] Platelet mean volume (Bld) [Entitic vol] 8.1 fL Normal 6.3-10.7 [facility] Comment on above: Performed By: #### C BC, CMP #### [place] [address] [place] Platelets (Bld) [#/Vol] 197 10*3/uL Normal 150-450 [facility] Comment on above: Performed By: #### C BC, CMP #### [address] RBC (Bld) [#/Vol] 4.22 10*6/uL Normal 3.60-5.00 [facility] Comment on above: Performed By: #### C BC, CMP #### [address] WBC (Bld) [#/Vol] 10.9 10*3/uL Normal 3.8-11.6 [facility] Comment on above: Performed By: #### C BC, CMP #### [address] Comprehensive Metabolic Pane mayito 02-05-2023 Albumin [Mass/Vol] 4.6 g/dL Normal 3.5-5.7 [facility] Comment on above: Performed By: #### C BC, CMP #### [address] Albumin/Globulin [Mass ratio] 1.4 {ratio} Normal [facility] Comment on above: Performed By: #### C BC, CMP #### [address] ALP [Catalytic activity/Vol] 40 U/L Normal 34-104 [facility] Comment on above: Performed By: #### C BC, CMP #### [address] ALT [Catalytic activity/Vol] 12 U/L Normal 7-52 [facility] Comment on above: Performed By: #### C BC, CMP #### [address] Anion gap [Moles/Vol] 14.1 mmol/L Normal 6.0-15.0 [facility] Comment on above: Performed By: #### C BC, CMP #### [address] AST [Catalytic activity/Vol] 14 U/L Normal 13-39 [facility] Comment on above: Performed By: #### C BC, CMP #### [facility] [address] [place] [address] [place] Bilirubin [Mass/Vol] 0.3 mg/dL Normal 0.3-1.0 [facility] Comment on above: Performed By: #### C BC, CMP #### [facility] [address] [place] [address] [place] Calcium [Mass/Vol] 8.9 mg/dL Normal 8.6-10.3 [facility] Comment on above: Performed By: #### C BC, CMP #### [facility] [address] Chloride [Moles/Vol] 105 mmol/L Normal 98-107 [facility] Comment on above: Performed By: #### C BC, CMP #### [facility] [address] CO2 [Moles/Vol] 23.7 mmol/L Normal 21.0-31.0 [facility] Comment on above: Performed By: #### C BC, CMP #### [facility] [address] [place] [address] [place] Creatinine [Mass/Vol] 0.78 mg/dL Normal 0.60-1.20 [facility] Comment on above: Performed By: #### C BC, CMP #### [facility] [address] [place] [address] [place] Creatinine Clr Calc Pharmacy 79.00 Normal [facility] Comment on above: Result Comment: PERF ORMED BY: [place] [address] PATHOLOGIST H[employer] ENGRAVER HAND ADRIENNE CONTEH M.D. Performed By: #### C BC, CMP #### [place] [address] [place] GFR/1.73 sq M.predicted MDRD (S/P/Bld) [Vol rate/Area] mL/min/{1.73_m2} Normal [facility] Comment on above: Performed By: #### C BC, CMP #### [address] Globulin (S) [Mass/Vol] 3.2 g/dL Normal [facility] Comment on above: Performed By: #### C BC, CMP #### [address] Glucose [Mass/Vol] 121 mg/dL High 70-100 [facility] Comment on above: Result Comment: [facility] Glucose Reference Range is dependent on time and content of last meal. Glucose of more than 200 mg/dL in a nonstressed, ambulatory subject supports the diagnosis of Diabetes Mellitus. ADA recommended reference range Performed By: #### C BC, CMP #### [address] Potassium [Moles/Vol] 3.8 mmol/L Normal 3.5-5.1 [facility] Comment on above: Performed By: #### C BC, CMP #### [address] Protein [Mass/Vol] 7.8 g/dL Normal 6.4-8.9 [facility] Comment on above: Performed By: #### C BC, CMP #### [address] Sodium [Moles/Vol] 139 mmol/L Normal 136-145 [facility] Comment on above: Performed By: #### C BC, CMP #### [address] Urea nitrogen [Mass/Vol] 14 mg/dL Normal 7-25 [facility] Comment on above: Performed By: #### C BC, CMP #### [place] [address] [place] Dipstick and Microscopicon 0 02-05-2023 Appearance (U) Clear Normal Clear [facility] Comment on above: Order Comment: Name Collection Type:: Clean-Voided Midstream Performed By: #### A DDONUAPLUS #### [place] [address] [place] Bacteria,Urine None Seen Normal None Seen [facility] Comment on above: Order Comment: Name Collection Type:: Clean-Voided Midstream Performed By: #### A DDONUAPLUS #### [place] [address] [place] Bilirubin,Urine Negative Normal Negative [facility] Comment on above: Order Comment: Name Collection Type:: Clean-Voided Midstream Performed By: #### A DDONUAPLUS #### [address] Color (U) Yellow Normal Yellow [facility] Comment on above: Order Comment: Name Collection Type:: Clean-Voided Midstream Performed By: #### A DDONUAPLUS #### [address] Glucose Ql (U) Normal Normal Normal [facility] Comment on above: Order Comment: Name Collection Type:: Clean-Voided Midstream Performed By: #### A DDONUAPLUS #### [place] [address] [place] Hyaline Casts,Urine 0-8 Normal 0-8 [facility] Comment on above: Order Comment: Name Collection Type:: Clean-Voided Midstream Result Comment: PERF ORMED BY: [place] [address] PATHOLOGIST [employer] ENGRAVER HAND ADRIENNE CONTEH M.D. Performed By: #### A DDONUAPLUS #### [facility] [address] [place] [address] [place] Ketones Ql (U) Trace High Negative [facility] Comment on above: Order Comment: Name Collection Type:: Clean-Voided Midstream Performed By: #### A DDONUAPLUS #### [facility] [address] [place] [address] [place] Leukocyte esterase Test strip Ql (U) Negative Normal Negative [facility] Comment on above: Order Comment: Name Collection Type:: Clean-Voided Midstream Performed By: #### A DDONUAPLUS #### [facility] [address] [place] [address] [place] Nitrite,Urine Negative Normal Negative [facility] Comment on above: Order Comment: Name Collection Type:: Clean-Voided Midstream Performed By: #### A DDONUAPLUS #### [address] Occult Blood,Urine Negative Normal Negative [facility] Comment on above: Order Comment: Name Collection Type:: Clean-Voided Midstream Result Comment: PERF ORMED BY: [place] [address] PATHOLOGIST [employer] ENGRAVER HAND ADRIENNE CONTEH M.D. Performed By: #### A DDONUAPLUS #### [address] pH (U) 5.5 [pH] Normal 5.0-9.0 [facility] Comment on above: Order Comment: Name Collection Type:: Clean-Voided Midstream Performed By: #### A DDONUAPLUS #### [address] Protein,Urine Trace High Negative [facility] Comment on above: Order Comment: Name Collection Type:: Clean-Voided Midstream Performed By: #### A DDONUAPLUS #### [address] RBC,Urine 1-2 Normal 0-4 [facility] Comment on above: Order Comment: Name Collection Type:: Clean-Voided Midstream Performed By: #### A DDONUAPLUS #### [facility] [address] [place] [address] Specificy [place],Urine 1.026 Normal 1.001-1.030 [facility] Comment on above: Order Comment: Name Collection Type:: Clean-Voided Midstream Performed By: #### A DDONUAPLUS #### [address] Squamous Epithelial Cell,Urine 3-4 High 0-2 [facility] Comment on above: Order Comment: Name Collection Type:: Clean-Voided Midstream Performed By: #### A DDONUAPLUS #### [place] [address] Urobilinogen,Urine Normal Normal Normal [facility] Comment on above: Order Comment: Name Collection Type:: Clean-Voided Midstream Performed By: #### A DDONUAPLUS #### [facility] [address] WBC,Urine 3-4 Normal 0-4 [facility] Comment on above: Order Comment: Name Collection Type:: Clean-Voided Midstream Performed By: #### A DDONUAPLUS #### [facility] [address] CBC AUTO DIFFon 10-23-2022 BASO # 0.1 103/ul Normal 0.0-0.1 [facility] [place] [facility] Comment on above: Performed By: #### C VDAGA #### [facility] [address] [place] [address] Dr. Karlo Beltre Basophils/100 WBC (Bld) 0.9 % Normal 0.2-2.0 [facility] [place] [facility] Comment on above: Performed By: #### C VDAGA #### [facility] [address] [place] [address] [address] Karlo Beltre EO # 0.1 103/ul Normal 0.0-0.7 [facility] [place] Comment on above: Performed By: #### C VDAGA #### [facility] [address] [place] [address] [address] Karlo Beltre Eosinophils/100 WBC (Bld) 2.1 % Normal 0.9-7.0 [facility] Comment on above: Performed By: #### C VDAGA #### [facility] [address] [place] [address] [address] Karlo Beltre Erythrocyte distribution width (RBC) [Ratio] 12.3 % Normal 11.0-15.0 [facility] Comment on above: Performed By: #### C VDAGA #### [facility] [address] [address] [address] Karlo Beltre Hematocrit (Bld) [Volume fraction] 38.3 % Normal 36.0-48.0 [facility] Comment on above: Performed By: #### C VDAGA #### [facility] [address] [place] [address] [address] Karlo Beltre Hemoglobin (Bld) [Mass/Vol] 12.9 g/dL Normal 12.0-16.0 [facility] Comment on above: Performed By: #### C VDAGA #### [facility] [address] [address] [address] Karlo Beltre IG # 0.01 10e3/ul Normal 0.00-0.03 [facility] Comment on above: Performed By: #### C VDAGA #### [facility] [address] [address] [address] Karlo Beltre IG % 0.2 % Normal 0.0-0.5 [facility] Comment on above: Performed By: #### C VDAGA #### [facility] [address] [place] [address] [address] Karlo Beltre LYMPH # 2.5 103/ul Normal 1.2-3.8 [facility] [place] [facility] Comment on above: Performed By: #### C VDAGA #### [facility] [address] [place] [address] [address] Karlo Beltre Lymphocytes/100 WBC (Bld) 43.8 % Normal 20.5-60.0 [facility] Comment on above: Performed By: #### C VDAGA #### [facility] [address] [place] [address] [address] Karlo Beltre MANUAL DIFF REQ NO Normal [facility] Comment on above: Performed By: #### C VDAGA #### [facility] [address] [address] [address] Karlo Beltre MCH (RBC) [Entitic mass] 30.4 pg Normal 26.7-34.0 [facility] Comment on above: Performed By: #### C VDAGA #### [facility] [address] [address] [address] Karlo Beltre MCHC (RBC) [Mass/Vol] 33.7 g/dL Normal 29.9-35.2 [facility] Comment on above: Performed By: #### C VDAGA #### [facility] [address] [address] [address] Karlo Beltre MCV (RBC) [Entitic vol] 90.1 fL Normal 81.0-99.0 [facility] Comment on above: Performed By: #### C VDAGA #### [facility] [address] [place] [address] Dr. Karlo Beltre MONO # 0.4 103/ul Normal 0.3-0.8 [facility] Comment on above: Performed By: #### C VDAGA #### [facility] [address] [place] [address] Dr. Karlo Beltre Monocytes/100 WBC (Bld) 6.7 % Normal 1.7-12.0 [facility] Comment on above: Performed By: #### C VDAGA #### [facility] [address] [place] [address] Dr. Karlo Beltre NEUT # 2.6 103/ul Normal 1.4-6.5 [facility] Comment on above: Performed By: #### C VDAGA #### [facility] [address] [place] [address] Dr. Karlo Beltre Neutrophils/100 WBC (Bld) 46.3 % Normal 43.0-75.0 [facility] Comment on above: Performed By: #### C VDAGA #### [facility] [address] [place] [address] Dr. Karlo Beltre Platelet mean volume (Bld) [Entitic vol] 9.6 fL Normal 9.5-13.5 [facility] Comment on above: Performed By: #### C VDAGA #### [facility] [address] [place] [address] Dr. Karlo Beltre PLT 190 103/ul Normal 150-450 [facility] Comment on above: Performed By: #### C VDAGA #### [facility] [address] [place] [address] Dr. Karlo Beltre RBC 4.25 106/ul Normal 4.20-5.40 [facility] Comment on above: Performed By: #### C VDAGA #### [facility] [address] [address] [address] Karlo Beltre WBC 5.7 103/ul Normal 4.0-11.0 [facility] Comment on above: Performed By: #### C VDAGA #### [facility] [address] [place] [address] [address] Karlo Beltre GLYCOHEMOGLOBIN A1Con 2022 ADA RECOMMENDATION SEE BELOW Normal [facility] Comment on above: Result Comment: ADA RECOMMENDED LIMIT 4.0 - 6.0 ADA THERAPEUTIC TARGET < 7.0 ACTION SUGGESTED > 7.0 Performed By: #### A 1C #### [facility] [address] [address] [address] Karlo Beltre Glucose [Mass/Vol] 114 mg/dL Normal [facility] Comment on above: Performed By: #### A 1C #### [facility] [address] [place] [address] [address] Karlo Beltre HbA1c (Bld) [Mass fraction] 5.6 % Normal 4.5-6.2 [facility] Comment on above: Performed By: #### A 1C #### [facility] [address] [place] [address] [address] Karlo Beltre LIPID PROFILEon 10-23-2022 CHOL-HDL RATIO NORM SEE BELOW Normal [facility] Comment on above: Result Comment: 3.3 - 4.4 LOW RISK 4.4 - 7.1 AVERAGE RISK 7.1 - 11.0 MODERATE RISK >11.0 HIGH RISK Performed By: #### L IPID, TSH, CMP #### [facility] [address] [place] [address] [address] Karlo Beltre Cholesterol [Mass/Vol] 249 mg/dL Critically high <=200 [facility] Comment on above: Performed By: #### L IPID, TSH, CMP #### [facility] [address] [place] [address] [address] Karlo Beltre Cholesterol in HDL [Mass/Vol] 82 mg/dL Critically high 40-60 [facility] Comment on above: Performed By: #### L IPID, TSH, CMP #### [facility] [address] [place] [address] [address] Karlo Beltre Cholesterol in LDL [Mass/Vol] 152.2 mg/dL Normal [facility] Comment on above: Performed By: #### L IPID, TSH, CMP #### [facility] [address] [place] [address] [address] Karlo Beltre Cholesterol.total/Ch olesterol in HDL [Mass ratio] 3.0 {ratio} Normal [facility] Comment on above: Performed By: #### L IPID, TSH, CMP #### [facility] [address] [address] [address] Karlo Beltre HDL NORMAL > or = 60 mg/dl - LOW CARDIOVASCULAR RISK <40 mg/dl - HIGH CARDIOVASCULAR RISK Normal [facility] Comment on above: Performed By: #### L IPID, TSH, CMP #### [facility] [address] [place] [address] Dr. Karlo Beltre LDL CALC NORMAL SEE BELOW Normal [facility] Comment on above: Result Comment: <100 mg/dl OPTIMAL 100 - 129 mg/dl NEAR OR ABOVE OPTIMAL 130 - 159 mg/dl BORDERLINE HIGH 160 - 189 mg/dl HIGH >190 mg/dl VERY HIGH Performed By: #### L IPID, TSH, CMP #### [facility] [address] [place] [address] Dr. Karlo Beltre Triglyceride [Mass/Vol] 74 mg/dL Normal <=150 [facility] Comment on above: Performed By: #### L IPID, TSH, CMP #### [facility] [address] [place] [address] Dr. Karlo Beltre VLDL CALC 14.8 mg/dL Normal [facility] Comment on above: Performed By: #### L IPID, TSH, CMP #### [facility] [address] [place] [address] [address] Karlo Beltre PROF 14(COMP METB)on 023 Albumin [Mass/Vol] 3.9 g/dL Normal 3.4-5.0 [facility] Comment on above: Performed By: #### L IPID, TSH, CMP #### [facility] [address] [place] [address] [address] Karlo Beltre Albumin/Globulin [Mass ratio] 1.1 {ratio} Normal [facility] Comment on above: Performed By: #### L IPID, TSH, CMP #### [facility] [address] [place] [address] [address] Karlo Beltre ALP [Catalytic activity/Vol] 49 U/L Normal 46-116 [facility] Comment on above: Performed By: #### L IPID, TSH, CMP #### [facility] [address] [address] [address] Karlo Beltre ALT [Catalytic activity/Vol] 23 U/L Normal 14-59 [facility] Comment on above: Performed By: #### L IPID, TSH, CMP #### [facility] [address] [place] [address] Dr. Karlo Beltre Anion gap [Moles/Vol] 13.5 mmol/L Normal [facility] Comment on above: Performed By: #### L IPID, TSH, CMP #### [facility] [address] [place] [address] Dr. Karlo Beltre AST [Catalytic activity/Vol] 15 U/L Normal 15-37 [facility] Comment on above: Performed By: #### L IPID, TSH, CMP #### [facility] [address] [place] [address] Dr. Karlo Beltre Bilirubin [Mass/Vol] 0.4 mg/dL Normal 0.2-1.0 [facility] Comment on above: Performed By: #### L IPID, TSH, CMP #### [facility] [address] [address] [address] Karlo Beltre Calcium [Mass/Vol] 9.2 mg/dL Normal 8.5-10.1 [facility] Comment on above: Performed By: #### L IPID, TSH, CMP #### [facility] [address] [address] [address] Karlo Beltre Chloride [Moles/Vol] 107 mmol/L Normal 98-107 [facility] Comment on above: Performed By: #### L IPID, TSH, CMP #### [facility] [address] [address] [address] Karlo Beltre CO2 [Moles/Vol] 26.6 mmol/L Normal 21.0-32.0 [facility] Comment on above: Performed By: #### L IPID, TSH, CMP #### [facility] [address] [address] [address] Karlo Beltre Creatinine [Mass/Vol] 0.82 mg/dL Normal 0.55-1.02 [facility] Comment on above: Performed By: #### L IPID, TSH, CMP #### [facility] [address] [address] [address] Karlo Beltre EGFR-AF ANDORRAN >60 Normal >=60 [facility] Comment on above: Performed By: #### L IPID, TSH, CMP #### [facility] [address] [address] [address] Karlo Beltre EGFR-NON AF ANDORRAN >60 Normal >=60 [facility] Comment on above: Performed By: #### L IPID, TSH, CMP #### [facility] [address] [address] [address] Karlo Beltre Globulin (S) [Mass/Vol] 3.7 g/dL Normal [facility] Comment on above: Performed By: #### L IPID, TSH, CMP #### [facility] [address] [address] [address] Karlo Beltre Glucose [Mass/Vol] 95 mg/dL Normal 74-106 [facility] Comment on above: Performed By: #### L IPID, TSH, CMP #### [facility] [address] [address] [address] Karlo Beltre Potassium [Moles/Vol] 4.1 mmol/L Normal 3.5-5.1 [facility] Comment on above: Performed By: #### L IPID, TSH, CMP #### [facility] [address] [address] [address] Karlo Beltre Protein [Mass/Vol] 7.6 g/dL Normal 6.4-8.2 [facility] Comment on above: Performed By: #### L IPID, TSH, CMP #### [facility] [address] [address] [address] Karlo Beltre Sodium [Moles/Vol] 143 mmol/L Normal 136-145 [facility] Comment on above: Performed By: #### L IPID, TSH, CMP #### [facility] [address] [place] [address] [address] Karlo Beltre Urea nitrogen [Mass/Vol] 17.0 mg/dL Normal 7.0-18.0 [facility] Comment on above: Performed By: #### L IPID, TSH, CMP #### [facility] [address] [address] [address] Karlo Beltre Urea nitrogen/Creatinine [Mass ratio] 20.7 mg/mg Normal [facility] Comment on above: Performed By: #### L IPID, TSH, CMP #### [facility] [address] [address] [address] Karlo Beltre TSHon 10-23-2022 TSH 1.095 uIU/mL Normal 0.358-3.740 [facility] Comment on above: Performed By: #### L IPID, TSH, CMP #### [facility] [address] [place] [address] Dr. Karlo Beltre MG MAMM SCREEN 3D CJ CADon 06-30-2022 MG MAMM SCREEN 3D CJ CAD Patient: JEANNE ANNA Exam Date: 06/30/2022 : 1970 Gender:F Ordering : DR RYAN JIN D.O. Admission #: [id number] Family : Order #: [id number] CLICK HERE TO VIEW EXAM RADIOLOGY REPORT [...] lung cancer at age 45. LOCATION: [facility] BREAST COMPOSITION: Scattered areas fibroglandular density. [...] MD on 07/02/2022 at 08:04 Normal [facility] ASYMPTOMATIC COVID-19 ANTIGE Non 05-24-2022 EUA Statement SEE BELOW Normal [facility] Comment on above: Result Comment: This [...] sooner. Performed By: #### C VDAGA #### [facility] [address] [place] [address] Dr. Karlo Beltre SARS-CoV-2 (COVID-19) RNA YUNG+probe Ql (Unsp spec) Negative Normal NEGATIVE [facility] Comment on above: Result Comment: Nega tive results are presumptive. They do not preclude infection and should not be used as the sole basis for treatment decisions. Additional confirmatory testing by a molecular method should be considered. Performed By: #### C VDAGA #### [facility] [address] [place] [address] Dr. Karlo Beltre [facility] 05-05 SARS-CoV-2 (COVID-19) RNA YUNG+probe Ql (Unsp spec) Detected Critically abnormal NOT DETECTED [facility] Comment on above: Result Comment: This test is not yet approved or cleared by the [place] FDA. When there are no FDA-approved or cleared tests available, and other criteria are met, FDA can make tests available under an emergency access mechanism called an Emergency Use Authorization (EUA). The EUA for this test is supported by the [place] of Health and Human Service's declaration that [...] used). Performed By: #### C VDAGA #### [facility] [address] [place] [address] Dr. Karlo Beltre HERPES SIMPLEX VIRUS 1/2 DNA PCRon 05-19-2022 HSV-1 DNA Negative Normal Negative [facility] Comment on above: Performed By: #### H SVPCR #### [facility] [address] [place] [address] Dr. Karlo Beltre HSV-2 DNA Positive Abnormal Negative [facility] Comment on above: Result Comment: This test was developed and its performance characteristics determined by [employer]. It has not been cleared or approved by the [place]. Food and Drug Administration. The FDA has determined that such clearance or approval is not necessary. This test is used for clinical purposes. It should not be regarded as investigational or research. Performed By: #### H SVPCR #### [facility] [address] [place] [address] Dr. 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 Typing was confirmed by monoclonal antibody microscopic immunofluorescence. Performed By: #### C VDAGA #### [facility] [address] [place] [address] Dr. Karlo Beltre Covid-19 PCR (CVDTB)on 04-04 SARS-CoV-2 (COVID-19) RNA YUNG+probe Ql (Unsp spec) Not detected Normal NOT DETECTED [facility] Comment on above: Result Comment: This test is not yet approved or cleared by the [place] FDA. When there are no FDA-approved or cleared tests available, and other criteria are met, FDA can make tests available under an emergency access mechanism called an Emergency Use Authorization (EUA). The EUA for this test is supported by the [place] [employer] of Health and Human Service's (HHS's) declaration [...] SARS-CoV-2. Performed By: #### C VDAGA #### [facility] [address] [place] [address] Dr. Karlo Beltre Covid-19 PCR (CVDTB)on SARS-CoV-2 (COVID-19) RNA YUNG+probe Ql (Unsp spec) Not detected Normal NOT DETECTED [facility] Comment on above: Result Comment: When [...] for this test is supported by the [place] of Health and Human Service's declaration that [...] used). Performed By: #### C VDAGA #### [facility] [address] [address] [address] Karlo Beltre Office Visiton 04-07-2022 Follow-up visit [id number] Jeanne Anna 1970 F Date Provider Department Center 04/07/2022 [facility] MP[facility] No family history on file Level of Service:[id number] ID OFFICE/OUTPATIENT NEW LOW MDM 30-44 MINUTES (GC) Reason for Visit and Comments: Pain [136] Normal [facility] XR WRIST RT 2Von 12-15-2021 [...] MICHOACANO CARRILLO Date: 2021-12-15 21:12 Normal [facility] CBC AUTO DIFFon 11-25-2021 BASO # 0.1 103/ul Normal 0.0-0.1 [facility] Comment on above: Performed By: #### C VDAGA #### [facility] [address] [place] [address] Dr. Karlo Beltre Basophils/100 WBC (Bld) 0.8 % Normal 0.2-2.0 [facility] Comment on above: Performed By: #### C VDAGA #### [facility] [address] [address] [address] Karlo Beltre EO # 0.1 103/ul Normal 0.0-0.7 [facility] Comment on above: Performed By: #### C VDAGA #### [facility] [address] [place] [address] Dr. Karlo Beltre Eosinophils/100 WBC (Bld) 1.8 % Normal 0.9-7.0 [facility] Comment on above: Performed By: #### C VDAGA #### [facility] [address] [place] [address] Dr. Karlo Beltre Erythrocyte distribution width (RBC) [Ratio] 12.7 % Normal 11.0-15.0 [facility] Comment on above: Performed By: #### C VDAGA #### [facility] [address] [place] [address] Dr. Karlo Beltre Hematocrit (Bld) [Volume fraction] 38.9 % Normal 36.0-48.0 [facility] Comment on above: Performed By: #### C VDAGA #### [facility] [address] [place] [address] Dr. Karlo Beltre Hemoglobin (Bld) [Mass/Vol] 12.6 g/dL Normal 12.0-16.0 [facility] Comment on above: Performed By: #### C VDAGA #### [facility] [address] [place] [address] Dr. Karlo Beltre IG # 0.01 10e3/ul Normal 0.00-0.03 [facility] Comment on above: Performed By: #### C VDAGA #### [facility] [address] [place] [address] Dr. Karlo Beltre IG % 0.2 % Normal 0.0-0.5 [facility] Comment on above: Performed By: #### C VDAGA #### [facility] [address] [place] [address] Dr. Karlo Beltre LYMPH # 2.2 103/ul Normal 1.2-3.8 [facility] Comment on above: Performed By: #### C VDAGA #### [facility] [address] [place] [address] Dr. Karlo Beltre Lymphocytes/100 WBC (Bld) 36.1 % Normal 20.5-60.0 [facility] Comment on above: Performed By: #### C VDAGA #### [facility] [address] [place] [address] Dr. Karlo Beltre MANUAL DIFF REQ NO Normal [facility] Comment on above: Performed By: #### C VDAGA #### [facility] [address] [place] [address] Dr. Karlo Beltre MCH (RBC) [Entitic mass] 30.3 pg Normal 26.7-34.0 [facility] Comment on above: Performed By: #### C VDAGA #### [facility] [address] [place] [address] Dr. Karlo Beltre MCHC (RBC) [Mass/Vol] 32.4 g/dL Normal 29.9-35.2 [facility] Comment on above: Performed By: #### C VDAGA #### [facility] [address] [place] [address] Dr. Karlo Beltre MCV (RBC) [Entitic vol] 93.5 fL Normal 81.0-99.0 [facility] Comment on above: Performed By: #### C VDAGA #### [facility] [address] [place] [address] Dr. Karlo Beltre MONO # 0.4 103/ul Normal 0.3-0.8 [facility] Comment on above: Performed By: #### C VDAGA #### [facility] [address] [place] [address] Dr. Karlo Beltre Monocytes/100 WBC (Bld) 6.4 % Normal 1.7-12.0 [facility] Comment on above: Performed By: #### C VDAGA #### [facility] [address] [place] [address] Dr. Karlo Beltre NEUT # 3.4 103/ul Normal 1.4-6.5 [facility] Comment on above: Performed By: #### C VDAGA #### [facility] [address] [place] [address] Dr. Karlo Beltre Neutrophils/100 WBC (Bld) 54.7 % Normal 43.0-75.0 [facility] Comment on above: Performed By: #### C VDAGA #### [facility] [address] [address] [address] Karlo Beltre Platelet mean volume (Bld) [Entitic vol] 8.9 fL Critically low 9.5-13.5 [facility] Comment on above: Performed By: #### C VDAGA #### [facility] [address] [address] [address] Karlo Beltre PLT 251 103/ul Normal 150-450 [facility] Comment on above: Performed By: #### C VDAGA #### [facility] [address] [address] [address] Karlo Beltre RBC 4.16 106/ul Critically low 4.20-5.40 [facility] Comment on above: Performed By: #### C VDAGA #### [facility] [address] [address] [address] Karlo Beltre WBC 6.1 103/ul Normal 4.0-11.0 [facility] Comment on above: Performed By: #### C VDAGA #### [facility] [address] [address] [address] Karlo Beltre GLYCOHEMOGLOBIN A1Con 2021 ADA RECOMMENDATION SEE BELOW Normal [facility] Comment on above: Result Comment: ADA RECOMMENDED LIMIT 4.0 - 6.0 ADA THERAPEUTIC TARGET < 7.0 ACTION SUGGESTED > 7.0 Performed By: #### A 1C #### [facility] [address] [address] [address] Karlo Beltre Glucose [Mass/Vol] 117 mg/dL Normal [facility] Comment on above: Performed By: #### A 1C #### [facility] [address] [address] [address] Karlo Beltre HbA1c (Bld) [Mass fraction] 5.7 % Normal 4.5-6.2 [facility] Comment on above: Performed By: #### A 1C #### [facility] [address] [address] [address] Karlo Beltre LIPID PROFILEon 11-25-2021 CHOL-HDL RATIO NORM SEE BELOW Normal [facility] Comment on above: Result Comment: 3.3 - 4.4 LOW RISK 4.4 - 7.1 AVERAGE RISK 7.1 - 11.0 MODERATE RISK >11.0 HIGH RISK Performed By: #### T SH, LIPID, CMP #### [facility] [address] [address] [address] Karlo Beltre Cholesterol [Mass/Vol] 229 mg/dL Critically high <=200 [facility] Comment on above: Performed By: #### T SH, LIPID, CMP #### [facility] [address] [address] [address] Karlo Beltre Cholesterol in HDL [Mass/Vol] 83 mg/dL Critically high 40-60 [facility] Comment on above: Performed By: #### T SH, LIPID, CMP #### [facility] [address] [address] [address] Karlo Beltre Cholesterol in LDL [Mass/Vol] 132.2 mg/dL Normal [facility] Comment on above: Performed By: #### T SH, LIPID, CMP #### [facility] [address] [address] [address] Karlo Beltre Cholesterol.total/Ch olesterol in HDL [Mass ratio] 2.8 {ratio} Normal [facility] Comment on above: Performed By: #### T SH, LIPID, CMP #### [facility] [address] [place] [address] Dr. Karlo Beltre HDL NORMAL > or = 60 mg/dl - LOW CARDIOVASCULAR RISK <40 mg/dl - HIGH CARDIOVASCULAR RISK Normal [facility] Comment on above: Performed By: #### T SH, LIPID, CMP #### [facility] [address] [address] [address] Karlo Beltre LDL CALC NORMAL SEE BELOW Normal [facility] Comment on above: Result Comment: <100 mg/dl OPTIMAL 100 - 129 mg/dl NEAR OR ABOVE OPTIMAL 130 - 159 mg/dl BORDERLINE HIGH 160 - 189 mg/dl HIGH >190 mg/dl VERY HIGH Performed By: #### T SH, LIPID, CMP #### [facility] [address] [address] [address] Karlo Beltre Triglyceride [Mass/Vol] 69 mg/dL Normal <=150 [facility] Comment on above: Performed By: #### T NOBLE, LIPID, CMP #### [facility] [address] [address] [address] Karlo Beltre VLDL CALC 13.8 mg/dL Normal [facility] Comment on above: Performed By: #### T NOBLE, LIPID, CMP #### [facility] [address] [address] [address] Karlo Beltre PROF 14(COMP METB)on 022 Albumin [Mass/Vol] 3.9 g/dL Normal 3.4-5.0 [facility] Comment on above: Performed By: #### T NOBLE LIPID, CMP #### [facility] [address] [place] [address] Dr. Karlo Beltre Albumin/Globulin [Mass ratio] 1.1 {ratio} Normal [facility] Comment on above: Performed By: #### T NOBLE, LIPID, CMP #### [facility] [address] [place] [address] Dr. Karlo Beltre ALP [Catalytic activity/Vol] 48 U/L Normal 46-116 [facility] Comment on above: Performed By: #### T NOBLE, LIPID, CMP #### [facility] [address] [place] [address] Dr. Karlo Beltre ALT [Catalytic activity/Vol] 20 U/L Normal 14-59 [facility] Comment on above: Performed By: #### T NOBLE, LIPID, CMP #### [facility] [address] [place] [address] Dr. Karlo Beltre Anion gap [Moles/Vol] 12.2 mmol/L Normal [facility] Comment on above: Performed By: #### T SH, LIPID, CMP #### [facility] [address] [place] [address] Dr. Karlo Beltre AST [Catalytic activity/Vol] 13 U/L Critically low 15-37 [facility] Comment on above: Performed By: #### T SH, LIPID, CMP #### [facility] [address] [address] [address] Karlo Beltre Bilirubin [Mass/Vol] 0.3 mg/dL Normal 0.2-1.0 [facility] Comment on above: Performed By: #### T SH, LIPID, CMP #### [facility] [address] [place] [address] Dr. Karlo Beltre Calcium [Mass/Vol] 9.0 mg/dL Normal 8.5-10.1 [facility] Comment on above: Performed By: #### T SH, LIPID, CMP #### [facility] [address] [address] [address] Karlo Beltre Chloride [Moles/Vol] 105 mmol/L Normal 98-107 [facility] Comment on above: Performed By: #### T SH, LIPID, CMP #### [facility] [address] [place] [address] Dr. Karlo Beltre CO2 [Moles/Vol] 28.6 mmol/L Normal 21.0-32.0 [facility] Comment on above: Performed By: #### T SH, LIPID, CMP #### [facility] [address] [place] [address] Dr. Karlo Beltre Creatinine [Mass/Vol] 0.77 mg/dL Normal 0.55-1.02 [facility] Comment on above: Performed By: #### T SH, LIPID, CMP #### [facility] [address] [place] [address] Dr. Karlo Beltre EGFR-AF ANDORRAN >60 Normal >=60 [facility] Comment on above: Performed By: #### T SH, LIPID, CMP #### [facility] [address] [place] [address] Dr. Karlo Beltre EGFR-NON AF ANDORRAN >60 Normal >=60 [facility] Comment on above: Performed By: #### T SH, LIPID, CMP #### [facility] [address] [place] [address] Dr. Karlo Beltre Globulin (S) [Mass/Vol] 3.7 g/dL Normal [facility] Comment on above: Performed By: #### T SH, LIPID, CMP #### [facility] [address] [address] [address] Karlo Beltre Glucose [Mass/Vol] 95 mg/dL Normal 74-106 [facility] Comment on above: Performed By: #### T SH, LIPID, CMP #### [facility] [address] [address] [address] Karlo Beltre Potassium [Moles/Vol] 3.8 mmol/L Normal 3.5-5.1 [facility] Comment on above: Performed By: #### T SH, LIPID, CMP #### [facility] [address] [place] [address] Dr. Karlo Beltre Protein [Mass/Vol] 7.6 g/dL Normal 6.4-8.2 [facility] Comment on above: Performed By: #### T SH, LIPID, CMP #### [facility] [address] [place] [address] Dr. Karlo Beltre Sodium [Moles/Vol] 142 mmol/L Normal 136-145 [facility] Comment on above: Performed By: #### T SH, LIPID, CMP #### [facility] [address] [address] [address] Karlo Beltre Urea nitrogen [Mass/Vol] 18.0 mg/dL Normal 7.0-18.0 [facility] Comment on above: Performed By: #### T SH, LIPID, CMP #### [facility] [address] [address] [address] Karlo Beltre Urea nitrogen/Creatinine [Mass ratio] 23.4 mg/mg Normal [facility] Comment on above: Performed By: #### T SH, LIPID, CMP #### [facility] [address] [address] [address] Karlo Beltre TSHon 11-25-2021 TSH 0.775 uIU/mL Normal 0.358-3.740 [facility] Comment on above: Performed By: #### T SH, LIPID, CMP #### [facility] [address] [place] [address] Dr. Karlo Beltre TSH RANGE SEE BELOW Normal [facility] Comment on above: Result Comment: <0.3 4 UIU/ml HYPERTHYROID 0.34-5.60 UIU/ml EUTHYROID >5.60 UIU/ml HYPOTHYROID Performed By: #### T SH, LIPID, CMP #### [facility] [address] [address] [address] Karlo Beltre XR DEXA BONE DENSITYon [...] by: BYRON LEE Date: 2021-11-25 08:53 Normal [facility] XR WRIST RT 2Von 11-04-2021 XR WRIST [...] by: MICHOACANO CARRILLO Date: 2021-11-04 12:54 Normal [facility] Outside Colonoscopyon 2020 Outside Colonoscopy [id number] #1.00CD:127 Normal [facility] Lab Reportson 12-31-2020 Lab Reports [id number] #1.00CD:127 Normal [facility] Consent for Procedure/Surger yon 12-04-2020 Consent for Procedure/Surgery [id number] #1.00CD:127 Normal [facility] Provider Letter FTon 12-04 Provider Letter [facility] December 04, 2020 RYAN JIN, [address] [facility], [place] [address] Re: JEANNE ANNA Date of : 1970 Thank you for your referral of Jeanne Anna who was seen on consultation on December 03, 2020, for screening colonoscopy. I have enclosed my consultation notes for your review, and I will be happy to follow Jeanne. Sincerely, Patricio Drew MD General Surgery [facility] Ambulatory Clinical Summaryo n 12-03-2020 Ambulatory Clinical Summary {[id number]}CD:[id number] Normal [facility] General Surgery Office/Clini c Noteon 12-03-2020 General Surgery Office/Clinic Note Chief Complaint Consult for Colonoscopy HPI Staff 50 year old female referred by Dr. Jin for Screening Colonoscopy. Previous colonoscopy completed 16 years ago at [facility] by Dr Forte. No family history [...] Status S (more content not included)... Normal [facility] Comment on above: Result Comment: Elec tronically Signed By: JOÃO ROMERO, Patricio Mcwilliams\Date and Time Signed: 12/03/20 15:24 EDT Patient Educationon 12-04-19 Patient Education Colonoscopy A colonoscopy is an [...] ? Medicines taken, including vitamins, herbs, eyedrops, cvlv-ibr-snoasct medicines, and creams. ? Use of steroids [...] medicines have worn off. ? Only take chtz-zuj-sgpwtpm or prescription medicines for pain, discomfort, or [...] Document Reviewed: 01/31/2009 ExitCare? Patient Information ?2013 [employer]. Physical Medicine and Rehabilitation Exercising to Lose [...] week of vig (more content not included)... Normal [facility] Physician Referralon 021 Physician Referral [id number] #1.00CD:127 [facility] CNPNon 09-04-2019 CNPN Telephone (NEADFV) JEANNE ANNA ([id number]) 1970 F Date Time Provider Department 09/04/19 MIMI STACYFV During your visit today, we recorded the following information about you: Vickey Schilling 09/04/2019 2:11 PM Signed Received outside medical records from [facility]. Scanned into patient's chart. Mimi Stacy MD [...] Encounter Status:Closed by VICKEY BELL on 03/25/20 [facility] QuantiFERON TB Gold (In Tube ) LCon 01-11-2019 QuantiFERON Criteria LC Comment [facility] Comment on above: Result Comment: The QuantiFERON-TB Gold Plus result is determined by subtracting the Nil value from either TB antigen (Ag) tube. The mitogen tube serves as a control for the test. Performed By: #### 4 [id number], [id number], [id number] #### [facility] (DEFAULT) [address] [place] [address] QuantiFERON Mitogen Value 3.65 IU/mL [facility] Comment on above: Result Comment: Perf ormed At: [address] [id number] Jerman Villagran PhD Ph:[phone] Performed By: #### 4 [id number], [id number], [id number] #### [facility] (DEFAULT) [address] [place] [address] QuantiFERON Nil Value LC 0.07 IU/mL [facility] Comment on above: Performed By: #### 4 [id number], [id number], [id number] #### [facility] (DEFAULT) [address] [place] [address] QuantiFERON TB1 Ag Value LC 0.10 IU/mL [facility] Comment on above: Performed By: #### 4 [id number], [id number], [id number] #### [facility] (DEFAULT) [address] [place] [address] QuantiFERON TB2 Ag Value LC 0.09 IU/mL [facility] Comment on above: Performed By: #### 4 [id number], [id number], [id number] #### [facility] (DEFAULT) [address] [place] [address] QuantiFERON-TB Gold Plus LCo n 01-11-2019 QuantiFERON-TB Gold Plus LC Negative Negative [facility] Comment on above: Result Comment: Perf ormed At: [address] [id number] Jerman Villagran PhD Ph:[phone] Performed By: #### 4 [id number], [id number], [id number] #### [facility] (DEFAULT) [address] [place] [address] QuantiFERON Incubation LC Comment [facility] Comment on above: Result Comment: LabC orp received incubated specimen. Performed At: [address] [id number] Jerman Villagran PhD Ph:[phone] Performed By: #### 4 [id number], [id number], [id number] #### [facility] (DEFAULT) [address] [place] [address] Lab - Toxicology Resultson 0 01-10-2019 Lab - Toxicology Results [id number] 1.00OTGTIFF Normal [facility] Measles/Mumps/Rubella Immuni ty LCon 01-09-2019 Mumps Abs, IgG LC 42.7 AU/mL Immune >10.9 [facility] Comment on above: Result Comment: Nega tive <9.0 Equivocal 9.0 - 10.9 Positive >10.9 A positive result generally indicates past exposure to Mumps virus or previous vaccination. Performed At: [facility] [address] [id number] Jerman Villagran PhD Ph:[phone] Performed By: #### 4 [id number], [id number] #### [facility] (DEFAULT) [address] [place] [address] Rubella Antibodies, IgG LC <0.90 Low Immune >0.99 [facility] Comment on above: Result Comment: Non- immune <0.90 Equivocal 0.90 - 0.99 Immune >0.99 Performed By: #### 4 [id number], [id number], [id number] #### [facility] (DEFAULT) [address] [place] [address] Rubeola Ab, IgG, EIA LC <25.0 Low Immune >29.9 [facility] Comment on above: Result Comment: Nega tive <25.0 Equivocal 25.0 - 29.9 Positive >29.9 Presence of antibodies to Rubeola is presumptive evidence of immunity except when acute infection is suspected. Performed By: #### 4 [id number], [id number], [id number] #### [facility] (DEFAULT) [address] [place] [address] Nicotine Metabolite, Urine L Con 01-09-2019 Cotinine LC Negative [id number] [facility] Comment on above: Result Comment: Perf ormed At: [facility] [place] [address] [place], [place] [id number] Bree Douglas PhD Ph:[phone] Performed By: #### 1 [id number] #### [facility] [address] [place] [address] Vital Signs Date Time Vital Sign Value Performing Clinician Facility 02-06-2025 14:50-0400 Body height 166.37 cm Ryan Ball DO Work Phone: [facility] 02-06-2025 14:50-0400 Body mass index (BMI) [Ratio] 27.9 kg/m2 Ryan Ball DO Work Phone: [facility] 02-06-2025 14:50-0400 Body weight 77.28 kg Ryan Ball DO Work Phone: [facility] 02-06-2025 14:50-0400 Diastolic blood pressure 82 mm[Hg] Ryan Ball DO Work Phone: [facility] 02-06-2025 14:50-0400 Heart rate 86 /min Ryan Ball DO Work Phone: [facility] 02-06-2025 14:50-0400 Respiratory rate 16 /min Ryan Ball DO Work Phone: [facility] 02-06-2025 14:50-0400 SaO2% (BldA) [Mass fraction] 98 % Ryan Ball DO Work Phone: [facility] 02-06-2025 14:50-0400 Systolic blood pressure 126 mm[Hg] Ryan Ball DO Work Phone: [facility] 12-27-2024 10:33-0400 Body height 158.75 cm Ryan Ball DO Work Phone: [facility] 12-27-2024 10:33-0400 Body mass index (BMI) [Ratio] 30.9 kg/m2 Ryan Ball DO Work Phone: [facility] 12-27-2024 10:33-0400 Body weight 78.13 kg Ryan Ball DO Work Phone: [facility] 12-27-2024 10:33-0400 Diastolic blood pressure 79 mm[Hg] Ryan Ball DO Work Phone: [facility] 12-27-2024 10:33-0400 Heart rate 67 /min Ryan Ball DO Work Phone: [facility] 12-27-2024 10:33-0400 Respiratory rate 12 /min Ryan Ball DO Work Phone: [facility] 12-27-2024 10:33-0400 Systolic blood pressure 135 mm[Hg] Ryan Ball DO Work Phone: [facility] 04-26-2024 10:08-0400 Body height 158.75 cm [facility] 04-26-2024 10:08-0400 Body mass index (BMI) [Ratio] 30.2 kg/m2 [facility] 04-26-2024 10:08-0400 Body weight 76.31 kg [facility] 04-26-2024 10:08-0400 Diastolic blood pressure 86 mm[Hg] [facility] 04-26-2024 10:08-0400 Heart rate 77 /min [facility] 04-26-2024 10:08-0400 Respiratory rate 12 /min [facility] 04-26-2024 10:08-0400 Systolic blood pressure 132 mm[Hg] [facility] 06-04-2023 10:00-0500 Body height 158.75 cm Ryan Ball Other [facility] [email or web address] Other 06-04-2023 10:00-0500 Body mass index (BMI) [Ratio] 30.74 kg/m2 Ryan Ball Other [facility] [email or web address] Other 06-04-2023 10:00-0500 Body weight 77.47 kg Ryan Ball Other [facility] [email or web address] Other 06-04-2023 10:00-0500 Diastolic blood pressure 83 mm[Hg] Ryan Ball Other [facility] [email or web address] Other 06-04-2023 10:00-0500 Respiratory rate 12 /min Ryan Ball Other [facility] 06-04-2023 10:00-0500 Systolic blood pressure 125 mm[Hg] Ryan Ball Other [facility] 02-04-2023 11:56-0400 Body height 158.75 cm Ryan Ball Other [facility] 02-04-2023 11:56-0400 Body mass index (BMI) [Ratio] 31.13 kg/m2 Ryan Ball Other [facility] 02-04-2023 11:56-0400 Body weight 78.47 kg Ryan Ball Other [facility] 02-04-2023 11:56-0400 Diastolic blood pressure 74 mm[Hg] Ryan Ball Other [facility] 02-04-2023 11:56-0400 Systolic blood pressure 115 mm[Hg] Ryan Ball Other [facility] 01-07-2023 15:52-0400 Body height 158.75 cm Ryan Ball Other [facility] 01-07-2023 15:52-0400 Body mass index (BMI) [Ratio] 31.49 kg/m2 Ryan Ball Other [facility] 01-07-2023 15:52-0400 Body weight 79.38 kg Ryan Ball Other [facility] 01-07-2023 15:52-0400 Diastolic blood pressure 82 mm[Hg] Ryan Ball Other [facility] 01-07-2023 15:52-0400 Systolic blood pressure 118 mm[Hg] Ryan Ball Other [facility] 10-27-2022 13:22-0400 Body height 158.75 cm Ryan Ball Other [facility] 10-23-2022 10:00-0400 Body height 158.75 cm Ryan Ball Other [facility] 10-23-2022 10:00-0400 Body mass index (BMI) [Ratio] 31.78 kg/m2 Ryan Ball Other [facility] 10-23-2022 10:00-0400 Body weight 80.11 kg Ryan Ball Other [facility] 10-23-2022 10:00-0400 Diastolic blood pressure 78 mm[Hg] Ryan Ball Other [facility] 10-23-2022 10:00-0400 Respiratory rate 12 /min Ryan Ball Other [facility] 10-23-2022 10:00-0400 Systolic blood pressure 126 mm[Hg] Ryan Ball Other [facility] 10-14-2021 14:45-0400 Body height 158.75 cm Santana Olexa Other [facility] 10-14-2021 14:45-0400 Body mass index (BMI) [Ratio] 30.77 kg/m2 Santana Olexa Other [facility] 10-14-2021 14:45-0400 Body weight 77.57 kg Santana Olexa Other [facility] Encounters Encounter Date Encounter Type Care Provider Facility Start: 02-06-2025 End: 02-06-2025 ambulatory Ryan Jin DO Work Phone: [facility] Work Phone: Start: 02-06-2025 End: 02-06-2025 Patient encounter procedure Ryan Jin DO -[facility] Work Phone: Start: 12-27-2024 End: 12-27-2024 ambulatory Ryan Jin DO Work Phone: [facility] Work Phone: Start: 12-27-2024 End: 12-27-2024 Patient encounter procedure Ryan Jin DO -[facility] Work Phone: Start: 12-27-2024 End: 12-27-2024 Patient encounter status Ryan Jin DO [facility] Start: 04-26-2024 End: 04-26-2024 ambulatory [facility] Work Phone: Start: 04-26-2024 End: 04-26-2024 Encounter for general adult medical examination without abnormal findings [facility] Start: 04-26-2024 End: 04-26-2024 Patient encounter procedure [facility] Work Phone: Start: 04-23-2024 Patient encounter status [facility] Start: 02-18-2024 Non-patient / Non-visit [facility] Work Phone: Start: 10-06-2023 End: 10-07-2023 ambulatory ALAN RAZA MD-MOON Facility:[id number] Start: 08-04-2023 End: 08-04-2023 ambulatory Ryan Jin Other [facility] Start: 08-04-2023 Telephone encounter Ryan Jin [facility] Start: 07-23-2023 End: 07-23-2023 ambulatory Ryan Jin Other [facility] Start: 07-23-2023 Telephone encounter Ryan BONE [facility] Start: 06-07-2023 End: 06-08-2023 ambulatory Lon Neumann MD Facility:[facility] Start: 06-04-2023 End: 06-04-2023 ambulatory Ryan Jin Other [facility] Start: 06-04-2023 Office outpatient vi sit 15 minutes Ryan Jin [facility] Start: 02-05-2023 End: 02-05-2023 Emergency department patient visit Ryan Jin Facility:[facility] Start: 02-04-2023 End: 02-04-2023 ambulatory Ryan Jin Other [facility] Start: 02-04-2023 Telephone encounter Ryan BONE [facility] Start: 01-07-2023 End: 01-07-2023 ambulatory Ryan Jin Other [facility] Start: 01-07-2023 Telephone encounter Ryan OBNE [facility] Start: 10-29-2022 Encounter for genera l adult medical examination without abnormal findings DR RYAN JIN [facility] Start: 10-27-2022 End: 10-27-2022 ambulatory NARENDRANATH LAKSHMIPATHY . [facility] Start: 10-27-2022 Telephone encounter Ryan BONE [facility] Start: 10-23-2022 End: 10-24-2022 Encounter for general adult medical examination without abnormal findings Ryan Jin [facility] Start: 10-23-2022 Periodic preventive med est patient 40-64yrs Ryan Jin [facility] Start: 10-23-2022 End: 10-24-[address] RYAN JIN [facility] Other Start: 10-13-2022 End: 10-14-2022 ambulatory NARENDRANATH LAKSHMIPATHY . Facility:H1 Start: 09-22-[address] DYLAN CUMMINGS . Faci lity:H1 Start: 06-30-2022 End: 07-01-[address] RYAN JIN Facility:[facility]1 Start: 06-22-2022 Adult health examination Ryan Jin Other Center[facility] Other Start: 06-04-2022 End: 06-05-[address] RYAN JIN Facility:[facility]1 Start: 05-24-2022 End: 05-24-2022 ambulatory GALE CARUSO Facility:H1 Start: 05-20-2022 End: 05-20-2022 ambulatory GALE CARUSO Facility:H1 Start: 05-14-2022 Gynecological examination normal Ryan Jin Other Center[facility] Other Start: 05-13-2022 End: 05-13-[address] JOAN HUGGINS Facility:[facility]1 Start: 04-22-2022 Encounter for preprocedural laboratory examination DR DYLAN CUMMINGS . [facility] Start: 04-21-2022 End: 04-21-[address] RYAN JIN Facility:[facility]1 Start: 04-17-2022 End: 04-18-[address] DYLAN CUMMINGS . Facility:[facility]1 Start: 04-17-2022 End: 04-18-2022 Encounter for preprocedural laboratory examination DR DYLAN CUMMINGS . Facility:[facility]1 Start: 04-14-2022 End: 04-14-[address] RYAN JIN Facility:[facility]1 Start: 04-10-2022 End: 04-11-[address] DYLAN CUMMINGS . Facility:[facility]1 Start: 04-07-2022 End: 04-07-2022 ambulatory [facility] Start: 03-26-2022 End: 03-27-[address] RYAN JIN Facility:H1 Start: 03-05-2022 End: 03-06-[address] RYAN JIN Facility:[facility]1 Start: 02-11-2022 End: 02-12-2022 ambulatory ROMMEL SALINAS . Facility:H1 Start: 12-17-2021 End: 01-30-[address] RYAN JIN Facility:[facility]1 Start: 12-15-2021 End: 12-16-[address] RYAN JIN Facility:[facility]1 Start: 11-25-2021 Postop follow up vis it related to original px Santana Olexa [facility] Start: 11-25-2021 Telephone encounter Santana Pandey [facility] Start: 11-25-2021 End: 11-26-[address] MARIBEL Coffman [place] [facility] Other Start: 11-06-2021 End: 11-07-[address] DYLAN CUMMINGS . Facility:[facility]1 Start: 11-04-2021 End: 11-05-2021 ambulatory SANTANA PANDEY Facility:[facility]1 Start: 10-28-2021 End: 10-28-2021 ambulatory Santana Pandey Other [facility] Other Start: 10-28-2021 Postop follow up vis it related to original px Santana Olexa [facility] Start: 10-28-2021 Telephone encounter Santana Pandey [facility] Start: 10-14-2021 End: 10-14-2021 ambulatory Santana Pandey Other [facility] Other Start: 10-14-2021 COUNT INCLUDES [facility] visit new patient Santana Pandey [facility] [place] Procedures Date Procedure Procedure Detail Performing Clinician Start: 03-27-2014 General examination of patient Ryan Jin Other Screening for malign ant neoplasm of breast Ryan Jin Other Screening for malign ant neoplasm of colon Ryan Jin Other Plan of Treatment Date Care Activity Detail Author Start: 02-06-2025 Patient referral [facility] Work Phone: Start: 01-14-2023 ambulatory Ambulatory Facility:H 1 Comprehensive metabo lic 2000 panel - Serum or Plasma [facility] MG Breast - bilatera l Screening [facility] Patient referral [facility] Work Phone: [facility] Immunizations Immunization Date Immunization Notes Care Provider Parish meade 04-25-2021 COVID-19 Sterling blanco Other [facility] 08-01-2020 COVID-19 Sterling blanco Other [facility] 07-03-2020 COVID-19 Sterling Davis Ba ll Other [facility] Payers Date Payer Category Payer Self-pay 2022 [facility] [employer] [id number] 2022 Unknown 2019 Unknown [id number] 2.16.840.1.098899.19 1969 Unknown [id number] 2.16.840.1.580656.3.579.2.593 1969 Unknown [id number] 2.16.840.1.997199.3.579.2.593 1969 Unknown [id number] 2.16.840.1.198531.3.579.2.593 1969 Unknown [id number] 2.16.840.1.042562.3.579.2.593 1969 Unknown [id number] 2.16.840.1.238319.3.579.2.593 1969 Unknown [id number] 2.16.840.1.765806.3.579.2.593 1969 Unknown [id number] 2.16.840.1.585469.3.579.2.593 1969 Unknown [id number] 2.16.840.1.596563.3.579.2.593 1969 Unknown [id number] 2.16.840.1.634127.3.579.2.593 1969 Unknown [id number] 2.16.840.1.315811.3.579.2.593 1969 Unknown [id number] 2.16.840.1.547568.3.579.2.593 1969 Unknown [id number] 2.16.840.1.038325.3.579.2.593 1969 Unknown [id number] 2.16.840.1.175032.3.579.2.593 1969 Unknown [id number] 2.16.840.1.273868.3.579.2.593 1969 Unknown [id number] 2.16.840.1.886331.3.579.2.593 1969 Unknown [id number] 2.16.840.1.321843.3.579.2.593 1969 Unknown [id number] 2.16.840.1.994405.3.579.2.593 1969 Unknown [id number] 2.16.840.1.487386.3.579.2.593 1969 Unknown [id number] 2.16.840.1.166682.3.579.2.593 1969 Unknown [id number] 2.16.840.1.356675.3.579.2.593 1969 Unknown [id number] 2.16.840.1.547387.3.579.2.593 1969 Unknown [id number] 2.16.840.1.547776.3.579.2.593 1969 Unknown [id number] 2.16.840.1.313221.3.579.2.593 1969 Unknown [id number] 2.16.840.1.113993.3.579.2.196 1969 Unknown [id number] 2.16.840.1.045442.3.579.2.159 Private Health Insurance [employer] [place] [id number] Unknown [id number] 2.16.840.1.797718.3.579.2.531 Unknown [facility] [id number] Social History Date Type Detail Facility Sex Assigned At [facility] [email or web address] Text[employer] Other Start: 06-16-2023 Tobacco smoking stat RUSTIS Never smoked tobacco (finding) [facility] Start: 1970 Sex Assigned At Female F [facility] Sex Female (finding) [facility] Clinical Notes 10-14-2021 to 02-06-2025 Note Date & Type Note Facility 02-06-2025 Hospital Discharg e instructions Ambulatory OrdersReferral to Weight Management Time Frame: 02/06/25, Location: None Selected [facility] Work Phone: 12-27-2024 Evaluation note Diagnosis Onset Date Resolution IFG (impaired fasting glucose) acute December 27, 2024 10:22am Obesity acute December 27 10:22am Screening mammogram for breast cancer acute December 27, 2024 10:22am Wellness examination acute December 27, 2024 10:22am IFG (impaired fasting glucose) acute February 06, 2025 2:49pm Obesity acute February 06 2:49pm [facility] Work Phone: [phone] 407-597801-31-2024 Evaluation note* Encounter Date Diagnosis Assessment Notes Treatment Notes Treatment Clinical Notes Jul, Other obesity due to excess calories (ICD-10 - E66.09) Jul, Body mass index [BMI] 30.0-30.9, adult (ICD-10 - Z68.30) [facility] [email or web address] Other 12-01-2023 Evaluation note* Encounter Date Diagnosis [...] disorder, not otherwise specified (ICD-10 - F99) [facility] Other 08-03-2023 Evaluation note* Encounter Date Diagnosis Assessment Notes Treatment Notes Treatment Clinical Notes Feb, Other obesity due to excess calories (ICD-10 - E66.09) [facility] 07-06-2023 Evaluation note* Encounter Date Diagnosis Assessment Notes Treatment Notes Treatment Clinical Notes Jan, Other obesity due to excess calories (ICD-10 - E66.09) Jan, Body mass index [BMI] 31.0-31.9, adult (ICD-10 - Z68.31) [facility] 04-25-2023 Evaluation note* Encounter Date Diagnosis Assessment Notes Treatment Notes Treatment Clinical Notes Oct, Obesity (BMI 30-39.9) (ICD-10 - E66.9) [facility] 04-21-2023 Evaluation note* Encounter Date Diagnosis [...] and massage to incorporate stretching and exercise [facility] Other 04-11-2023 NoteCONSULTATION CONSULTATION DATE: 10/13/2022 TO: [...] our patients to inform us about any [id number]-yia-[id number] medications or herbal remedies/nutritional supplements/alternative remedies. 2. 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 She [...] may be an additional personal documentation from me.[facility]09-22-2022 Note CONSULTATION CONSULTATION DATE: 03/26/2022 [...] Flexion and extension are painful for her. 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 [...] like to move forward, and [facility] NotePROCEDURE: XR HIP LT 2 3V W PELVIS HISTORY: Pain of left hip joint ; hamstring tear COMPARISON: None. FINDINGS: BONES:No fracture, acute abnormality, or significant arthropathy. SOFT TISSUES:No visible soft tissue swelling. EFFUSION:None visible. OTHER: Negative. IMPRESSION: 1. Normal appearance of left hip joint. Electronically authenticated by: BYRON LEE Date: 2022-03-05 13:30[id number] NoteCONSULTATION CONSULTATION DATE: 02/11/2022 This is a [...] patient agrees to the plan of care.[facility] 11-25-2021 NotePROCEDURE: XR WRIST RT 2V [...] Electronically authenticated by: MARIBEL DEJESUS Date: 2021-11-25 14:18[facility]05-24-2022 Evaluation note* Encounter Date Diagnosis Assessment Notes Treatment Notes Treatment Clinical Notes November, Other closed fracture of distal end of right radius with routine healing, subsequent encounter (ICD-10 - S52.591D) [facility] 05-24-2022 Evaluation note* Encounter Date Diagnosis [...] appearance of the wrists. Call with questions/concerns. [facility] Other 05-05-2022 NoteCONSULTATION CONSULTATION DATE: 11/07/2021 This [...] The patient agrees with plan of care. [facility] Signed and Approved by: ROMMEL SALINAS . 11/12/2021 14:04:00[facility]04-26-2022 Evaluation note* Encounter Date Diagnosis Assessment Notes [...] would like to see x-rays next week. [facility] 04-26-2022 Evaluation note* Encounter Date Diagnosis Assessment Notes Treatment Notes Treatment Clinical Notes Oct, Other closed fracture of distal end of right radius with routine healing, subsequent encounter (ICD-10 - S52.591D) [facility] 04-12-2022 Evaluation note* Encounter Date Diagnosis [...] discussed that this injury can lead to group home pain and wrist stiffness. Patient to be off work from now through 10/19/21. May return 10/20 with the restriction of no using the right hand for work more than 2 lbs. May use the left hand unrestricted. May work up to 6 hours per day. Oct, Other Patient will ob tain xrays at [facility] in 1 week, and call our office to inform done. If fracture has displaced, may consider surgical intervention. If fracture appears to still be stable, we will recheck in [place] office the following week. [facility] Other Evaluation noteNo InformationNort [place] Other Evaluation note* Diagnosis Onset Date Resolution Status IFG (impaired fasting glucose) acute Obesity acute Screening mammogram for breast cancer acute Wellness examination acute [facility] Work Phone: Evaluation note* Diagnosis Onset Date Resolution Status Admit Date IFG (impaired fasting glucose) acute December 27, 2024 10:22am Obesity acute December 27 10:22am Screening mammogram for breast cancer acute December 27, 2024 10:22am Wellness examination acute December 27, 2024 10:22am Screening for colon cancer noneactiv e December 27, 2024 10:22am [facility] Work Phone: History general Narrative - Reported* Type Description Date Medical History DDD Surgical History CTS Surgical History hysterectomy Surgical History appendectomy Surgical History oophorectomy Surgical History laparoscopy Surgical History wisdom teeth Surgical History colonoscopy Surgical History back ablasions Hospitalization History see above Center[facility] Other Histfdt general Narrative - Reported* Type Description Date [...] History back ablasions Hospitalization History see above [facility] Other Reason for referral (narrative)No reason for referral information availableTrumbull [facility] Work Phone: Summary Purpose Family History Relationship Condition Age at Onset Recorded Date/T hannah brother Diabetes mellitus Unknown father Malignant neoplasm Unknown Unknown mother Unknown Hypertension Unknown Advance Directives Advance Directive Response Recorded Date/ Time Advance Directives No February 05 023 1:34am Chief Complaint and Reason for Visit Chief Complaint Wellness Reason for Visit IFG (impaired fastin g glucose) Obesity Screening mammogram for breast cancer Wellness examination Chief Complaint Admit Date work physical, new ins December 27, 2024 1 0:22am Reason for Visit Admit Date IFG (impaired fasting glucose) December 10:22am Obesity December 27, 2024 10:2 2am Screening mammogram for breast cancer Ju ne 2024 10:22am Wellness examination December 27, 2024 10: 22am Screening for colon cancer December 27 10:22am Chief Complaint Admit Date work physical, new ins December 27, 2024 1 0:22am 1 month f/u February 06, 2025 2:4 9pm Reason for Visit Admit Date IFG (impaired fasting glucose) December 10:22am Obesity December 27, 2024 10:2 2am Screening mammogram for breast cancer Ju ne 2024 10:22am Wellness examination December 27, 2024 10: 22am IFG (impaired fasting glucose) February 2:49pm Obesity February 06, 2025 2:4 9pm Additional Source Comments INFORMATION SOURCE (unrecogn ized section and content) DATE CREATED AUTHOR 01/11/2019 [facility] DATE CREATED AUTHOR AUTHOR'S ORGANIZ ATION 03/25/2020 [facility] DATE CREATED AUTHOR AUTHOR'S ORGANIZ ATION 01/09/2021 [facility] DATE CREATED AUTHOR AUTHOR'S ORGANIZ ATION 04/10/2022 [facility] DATE CREATED AUTHOR AUTHOR'S ORGANIZ ATION 10/30/2022 [facility] DATE CREATED AUTHOR AUTHOR'S ORGANIZ ATION 02/17/2023 [facility] DATE CREATED AUTHOR AUTHOR'S ORGANIZ ATION 06/18/2023 [facility] DATE CREATED AUTHOR AUTHOR'S ORGANIZ ATION 10/07/2023 [facility] REASON FOR VISIT (unrecogniz ed section and content) Right Wrist InjuryRecheck Ri ght Wristxray orderxraysRecheck Right WristWellnessLab ResultsNo Informationweight checkRe-Send AdipexBP RUNNING HIGHERmamm resultsWeight loss Care Teams (unrecognized sec tion and content) Team Status: Active Member Role Status Dates Ryan Jin DO Primary Care Provider Active Team Status: Inactive Member Role Status Dates Ryan Jin DO Primary Care Provider Active Start: December 27, 2024 End: December 27, 2024 Ryan Jin DO Attending Provider Active Sta rt: December 27, 2024 End: December 27, 2024 Team Status: Active Member Role Status Dates Ryan Jin DO Primary Care Provide r, Attending Provider Active Start: February 18, 2024 Team Status: Inactive Member Role Status Dates Ryan Jin DO Primary Care Provide r, Attending Provider Active Start: April 26, 2024 End: April 26, 2024 Team Status: Inactive Member Role Status Dates Ryan Jin DO Primary Care Provider Active Start: February 06, 2025 End: February 06, 2025 Ryan Jin Attending Provider Active Sta rt: February 06, 2025 End: February 06, 2025 Goals (unrecognized section and content) Goals may be documented in a n alternate section FOR RECORDS PERTAINING TO PATIENTS WHO ARE [...] BE BASED ON THE PRIMARY CLINICAL RECORDS. [facility] [employer] [facility]. provides no warranty or guarantee of the accuracy or completeness of information in this document.
[2025-02-15 07:33] LABS: Hematocrit 38.6 % (36.0-48.0); Hemoglobin 13.2 g/dL (12.0-16.0); Immature Granulocytes Abs Auto 0.01 10^3/uL (0.00-0.03); Immature Granulocytes Pct Auto 0.2 % (0.0-0.5); Lymphocytes Absolute Auto 2.2 10^3/uL (1.2-3.8); Mean Corpuscular HGB Conc 34.2 g/dL (29.9-35.2); Mean Corpuscular Hemoglobin 31.2 pg (26.7-34.0); Mean Corpuscular Volume 91.3 fL (81.0-99.0); Platelet Count 206 10^3/uL (150-450); Red Blood Count 4.23 10^6/uL (4.20-5.40); White Blood Count 6.4 10^3/uL (4.0-11.0)
[2025-02-15 08:17] LABS: Anion Gap 11.4; Carbon Dioxide 29.6 mmol/L (21.0-32.0); Chloride 105 mmol/L (98-107); Potassium 4.0 mmol/L (3.5-5.1); Sodium 142 mmol/L (136-145)
[2025-02-15 08:18] LABS: Alanine Aminotransferase 30 U/L (14-59); Albumin Globulin Ratio 1.1; Albumin Level 4.0 g/dL (3.4-5.0); Alkaline Phosphatase 48 U/L (46-116); Aspartate Amino Transferase 22 U/L (15-37); Blood Urea Nitrogen 23.0 mg/dL (7.0-18.0); Calcium 9.2 mg/dL (8.5-10.1); Estimated GFR (African America >60 (>=60 mL/min/1.73m^2); Estimated GFR (Non-African Ame >60 (>=60 mL/min/1.73m^2); Globulin 3.8 g/dL; Glucose 98 mg/dL (74-106); Total Protein 7.8 g/dL (6.4-8.2); Triglycerides 74 mg/dL (<=150); VLDL CHOLESTEROL 14.8 mg/dL
[2025-02-15 08:19] LABS: Cholesterol 249 mg/dL (<=200); HDL Cholesterol 81 mg/dL (40-60); Thyroid Stimulating Hormone 1.425 uIU/mL (0.358-3.740)
== END 2025-02-15 06:50 | disposition home or self-care (01) ==
LOC: LAB 06:51
PROVIDERS: PCP Internal Medicine; Visit Provider Internal Medicine
DX: Z00.00 Encounter for general adult medical examination without abnormal findings (principal)
CPT/HCPCS: 36415; 80053; 80061; 83036; 84443; 85025